=== PATIENT | female | born 1965 | race Caucasian/White ===

== ENCOUNTER → 2017-05-14 15:50 | Outpatient (CLI) | payer OTHER, SELFPAY ==
--- NOTE | 2017-05-14 15:55 | HPBI_ITS ---
MAMMOGRAPHY - BILATERAL SCREENING REASON FOR EXAM: Female, 52 years old. Routine annual screening examination. PERTINENT HISTORY: Non-contributory. TECHNIQUE: Digital bilateral breast francine (3D mammographic acquisition) in the CC and MLO projections. 2-D mediolateral oblique (MLO) and craniocaudad (CC) views of both breasts were obtained. CAD: Full Field Digital Mammography with Computer Added Detection was performed. COMPARISON: Comparison is made with prior examination dated April 04, 2016 and March 26, 2015. FINDINGS: Breast Composition: There are scattered areas of fibroglandular density. There are no dominant masses or suspicious calcifications. Stable benign-appearing bilateral axillary lymph nodes. Stable appearance of the small nodular density in the upper outer aspect of the left breast most likely representing intramammary lymph node. No other significant abnormalities are identified. There has been no significant change since the prior study. HPBI/SCREENING MAMM (CAD), BILAT IMPRESSION: Stable bilateral screening mammogram. Yearly follow-up mammogram recommended. (A) ASSESSMENT CATEGORY: BIRADS Category 2: Benign. A letter regarding these results will be sent to the patient by the facility within 30 days. Approximately 10% of breast cancers are not detected by mammography. A normal mammogram should not delay biopsy of a clinically suspicious abnormality. [id number] Electronically Signed: Librado Flanagan MD at 10:59 EST Tel [phone], Service support ,
== END ==
PROVIDERS: Family Provider Family Medicine Geriatric Medicine; PCP Family Medicine Geriatric Medicine; Visit Provider Family Medicine Geriatric Medicine
DX: Z12.31 Encounter for screening mammogram for malignant neoplasm of breast (principal)
CPT/HCPCS: 77063; 77067

== ENCOUNTER → 2018-04-09 11:58 | Outpatient (CLI) | payer OTHER, SELFPAY ==
[2018-04-09 12:47] LABS: Absolute Lymphocyte Count 1.29 X10^3/ul (0.83-4.51); Absolute Neutrophil Count 5.7 X10^3/uL (2.0-7.7); Basophil# 0.02 X10^3/uL; Basophil% 0.3 % (0-1); Eosinophils% 1.3 % (0-5); Hematocrit 41.4 % (37-47); Hemoglobin 12.9 g/dl (12.0-15.0); Lymphocyte # 1.29 X10^3/ul (4.0); Lymphocyte % 17.2 % (19-41); Mean Corp Hgb Conc 31.2 g/gl (32-36); Mean Corpuscular Hgb 27.3 pg (27.0-32.0); Mean Corpuscular Volume 87.5 fL (81-99); Mean Platelet Vol. 9.6 fl (6.2-12.0); Monocyte# 0.41 X10^3/uL; Monocyte% 5.5 % (0-10); Neutrophil # 5.69 X10^3/uL (2.7-7.7); Neutrophil % 75.6 % (47-70); Platelet Count 285 K/mm3 (150-450); RBC Distribution Width CV 14.7 % (11.6-14.6); RBC Distribution Width SD 47.1 fl (35.1-43.9); Red Blood Count 4.73 M/mm3 (4.2-5.4); White Blood Count 7.5 K/mm3 (4.4-11.0)
[2018-04-09 12:49] LABS: POSITIVE COUNT NO; POSITIVE DIFFERENTIAL NO; POSITIVE MORPHOLOGY NO
[2018-04-09 13:00] LABS: Vitamin D,25 Hydroxy 41.3 ng/mL (29.95-100.01)
[2018-04-09 13:05] LABS: ALB/GLOB Ratio 0.9 RATIO (0.9-2.4); AST(SGOT) 18 U/L (15-37); Alanine Aminotransfer ALT/SGPT 22 U/L (13-56); Albumin, Serum 3.6 g/dL (3.2-5.0); Alkaline Phosphatase 83 U/L (45-117); Anion Gap 13 (5-15); BUN 13 mg/dL (7-18); BUN/Creat Ratio 23.4 RATIO (10-20); Calcium,Total 8.9 mg/dL (8.5-10.1); Chloride 107 mmol/L (98-107); Creatinine, Serum 0.56 mg/dL (0.55-1.02); EST Glomerular Filtration Rate 122 mL/min (>60); Est Glom Filt Rate - Afr Amer 148 mL/min (>60); Glucose 103 mg/dL (74-106); Potassium 3.7 mmol/L (3.5-5.1); Protein, Total 7.6 g/dL (6.4-8.2); Sodium Level 141 mmol/L (136-145); Thyroid Stim Hormone (TSH) 0.82 uIU/mL (0.358-3.74)
== END ==
PROVIDERS: Family Provider Family Medicine Geriatric Medicine; PCP Family Medicine Geriatric Medicine; Visit Provider Family Medicine Geriatric Medicine
DX: I10 Essential (primary) hypertension (principal); E55.9 Vitamin D deficiency, unspecified
CPT/HCPCS: 36415; 80053; 82306; 84443; 85025

== ENCOUNTER → 2018-06-01 16:19 | Outpatient (CLI) | payer OTHER, SELFPAY ==
--- NOTE | 2018-06-01 16:23 | BI_ITS ---
MAMMOGRAPHY - BILATERAL SCREENING REASON FOR EXAM: Female, 53 years old. Routine annual screening examination. PERTINENT HISTORY: Non-contributory. TECHNIQUE: Digital bilateral breast francine (3D mammographic acquisition) in the CC and MLO projections. 2-D mediolateral oblique (MLO) and craniocaudad (CC) views of both breasts were obtained. CAD: Full Field Digital Mammography with Computer Added Detection was performed. COMPARISON: Comparison is made with prior study dated May 14, 2017 and April 04, 2016. FINDINGS: Breast Composition: The breasts are heterogeneously dense, which may obscure small masses. There are no dominant masses or suspicious calcifications. Stable small nodular densities measuring up to 5 mm in the upper outer quadrant of the left breast. Correlation with ultrasound is recommended. Stable benign-appearing bilateral axillary lymph nodes. No other significant abnormalities are identified. There has been no significant change since the prior study. BI/SCREENING MAMM (CAD), BILAT IMPRESSION: Stable bilateral screening mammogram. Targeted ultrasound of the upper lateral aspect of the left breast is recommended for further evaluation. ASSESSMENT CATEGORY: BIRADS Category 0: Incomplete. Need additional imaging evaluation. A letter regarding these results will be sent to the patient by the facility within 30 days. Approximately 10% of breast cancers are not detected by mammography. A normal mammogram should not delay biopsy of a clinically suspicious abnormality. [id number] Electronically Signed: Librado Flanagan, at 9:04 EST , Service support ,
== END ==
PROVIDERS: Family Provider Family Medicine Geriatric Medicine; PCP Family Medicine Geriatric Medicine; Referring Provider Family Medicine Geriatric Medicine; Visit Provider Family Medicine Geriatric Medicine
DX: Z12.31 Encounter for screening mammogram for malignant neoplasm of breast (principal)
CPT/HCPCS: 77063; 77067

== ENCOUNTER → 2018-06-08 15:28 | Outpatient (CLI) | payer OTHER, SELFPAY ==
--- NOTE | 2018-06-08 15:29 | US_ITS ---
STUDY: ULTRASOUND BREAST - LEFT REASON FOR EXAM: Female, 53 years old. Abnormal screening mammogram. TECHNIQUE: Axial and longitudinal images of the LEFT breast were performed with a high resolution ultrasound transducer. COMPARISON: Comparison is made with prior mammogram dated June 01, 2018. FINDINGS: LEFT Breast: A cluster of small cysts measuring up to 3 mm x 4 mm x 2 mm is seen at the 2:00 position of the breast at 6 cm from the nipple. Mild degree of dilated subareolar ducts. US/Breast Limited Unilateral IMPRESSION: Cluster of small cysts in the upper outer quadrant of the left breast as described as well as mildly dilated subareolar ducts. ASSESSMENT CATEGORY: BIRADS Category 2: Benign. A letter regarding these results will be sent to the patient by the facility within 30 days. Electronically Signed: Librado Flanagan, at 8:59 EST , Service support ,
== END ==
PROVIDERS: Family Provider Family Medicine Geriatric Medicine; PCP Family Medicine Geriatric Medicine; Referring Provider Family Medicine Geriatric Medicine; Visit Provider Family Medicine Geriatric Medicine
DX: R92.8 Other abnormal and inconclusive findings on diagnostic imaging of breast (principal)
CPT/HCPCS: 76642

== ENCOUNTER → 2019-04-11 11:46 | Outpatient (CLI) | payer OTHER, SELFPAY ==
[2019-02-23 07:06] VITALS: BMI 41.7
[2019-04-11 12:43] LABS: Absolute Lymphocyte Count 1.47 X10^3/uL (0.83-4.51); Absolute Neutrophil Count 5.2 X10^3/uL (2.0-7.7); Basophil# 0.03 X10^3/uL; Basophil% 0.4 % (0-1); Eosinophil# 0.13 X10^3/uL; Eosinophils% 1.8 % (0-5); Hematocrit 42.8 % (37-47); Hemoglobin 13.7 g/dL (12.0-15.0); Lymphocyte # 1.47 X10^3/ul (4.0); Lymphocyte % 20.3 % (19-41); Mean Corpuscular Volume 87.5 fL (81-99); Mean Platelet Vol. 10.2 fl (6.2-12.0); Monocyte# 0.43 X10^3/uL; Monocyte% 5.9 % (0-10); NRBC Flagged by Analyzer 0 % (0-5); Neutrophil # 5.16 X10^3/uL (2.7-7.7); Neutrophil % 71.2 % (47-70); Platelet Count 297 K/mm3 (150-450); RBC Distribution Width CV 13.8 % (11.6-14.6); RBC Distribution Width SD 44.6 fl (35.1-43.9); Red Blood Count 4.89 M/mm3 (4.2-5.4); White Blood Count 7.3 K/mm3 (4.4-11.0)
[2019-04-11 13:06] LABS: Vitamin D,25 Hydroxy 38.1 ng/mL (29.95-100.01)
[2019-04-11 13:12] LABS: ALB/GLOB Ratio 0.9 RATIO (0.9-2.4); AST(SGOT) 27 U/L (15-37); Alanine Aminotransfer ALT/SGPT 39 U/L (13-56); Albumin, Serum 3.8 g/dL (3.2-5.0); Alkaline Phosphatase 92 U/L (45-117); Anion Gap 9 (5-15); BUN 10 mg/dL (7-18); BUN/Creat Ratio 10.9 RATIO (10-20); Calcium,Total 9.5 mg/dL (8.5-10.1); Chloride 107 mmol/L (98-107); Creatinine, Serum 0.92 mg/dL (0.55-1.02); EST Glomerular Filtration Rate 69 mL/min (>60); Est Glom Filt Rate - Afr Amer 83 mL/min (>60); Globulin 4.3 g/dL (2.2-4.2); Glucose 135 mg/dL (74-106); Potassium 3.6 mmol/L (3.5-5.1); Protein, Total 8.1 g/dL (6.4-8.2); Sodium Level 138 mmol/L (136-145); Thyroid Stim Hormone (TSH) 1.61 uIU/mL (0.358-3.74)
== END ==
PROVIDERS: Family Provider Family Medicine Geriatric Medicine; PCP Family Medicine Geriatric Medicine; Visit Provider Family Medicine Geriatric Medicine
DX: I10 Essential (primary) hypertension (principal); E55.9 Vitamin D deficiency, unspecified
CPT/HCPCS: 36415; 80053; 82306; 84443; 85025

== ENCOUNTER → 2019-06-07 15:41 | Outpatient (CLI) | payer OTHER, SELFPAY ==
[2019-02-23 07:06] VITALS: BMI 41.7
--- NOTE | 2019-06-07 15:44 | BI_ITS ---
MAMMOGRAPHY - BILATERAL SCREENING REASON FOR EXAM: Female, 54 years old. Routine annual screening examination. PERTINENT HISTORY: Non-contributory. TECHNIQUE: Digital bilateral breast anais (3D mammographic acquisition) in the CC and MLO projections. 2-D mediolateral oblique (MLO) and craniocaudad (CC) views of both breasts were obtained. CAD: Full Field Digital Mammography with Computer Added Detection was performed. COMPARISON: Comparison is made with prior study dated June 01, 2018 and May 14, 2007. FINDINGS: Breast Composition: The breasts are heterogeneously dense, which may obscure small masses. There are no dominant masses or suspicious calcifications. Stable subcentimeter nodular densities in the upper outer quadrant of the left breast. Prior sonogram demonstrated these to be small cysts. Stable benign-appearing bilateral axillary lymph nodes. No other significant abnormalities are identified. There has been no significant change since the prior study. BI/SCREEN MAMM (CAD) W/ANAIS BILAT IMPRESSION: Stable bilateral screening mammogram. Yearly follow-up mammogram recommended. (A) ASSESSMENT CATEGORY: BIRADS Category 2: Benign. A letter regarding these results will be sent to the patient by the facility within 30 days. Approximately 10% of breast cancers are not detected by mammography. A normal mammogram should not delay biopsy of a clinically suspicious abnormality. [id number] Electronically Signed: Librado Flanagan, at 8:23 EST , Service support ,
== END ==
PROVIDERS: Family Provider Family Medicine Geriatric Medicine; PCP Family Medicine Geriatric Medicine; Referring Provider Family Medicine Geriatric Medicine; Visit Provider Family Medicine Geriatric Medicine
DX: Z12.31 Encounter for screening mammogram for malignant neoplasm of breast (principal)
CPT/HCPCS: 77063; 77067

== ENCOUNTER → 2019-09-08 07:23 | Outpatient (CLI) | payer OTHER, SELFPAY ==
[2019-02-23 07:06] VITALS: BMI 41.7
[2019-09-08 08:11] LABS: Hemoglobin 12.5 g/dL (12.0-15.0); Mean Corp Hgb Conc 30.5 g/dL (32-36); Mean Corpuscular Hgb 28.3 pg (27.0-32.0); Mean Corpuscular Volume 92.8 fL (81-99); Mean Platelet Vol. 9.9 fl (6.2-12.0); Platelet Count 302 K/mm3 (150-450); RBC Distribution Width CV 14.5 % (11.6-14.6); RBC Distribution Width SD 49.2 fl (35.1-43.9); Red Blood Count 4.42 M/mm3 (4.2-5.4); White Blood Count 7.1 K/mm3 (4.4-11.0)
[2019-09-08 08:27] LABS: Hemoglobin A1c 6.2 % (3.8-5.6)
[2019-09-08 08:29] LABS: ALB/GLOB Ratio 0.8 RATIO (0.9-2.4); AST(SGOT) 16 U/L (15-37); Alanine Aminotransfer ALT/SGPT 22 U/L (13-56); Albumin, Serum 3.4 g/dL (3.2-5.0); Alkaline Phosphatase 106 U/L (45-117); Anion Gap 9 (5-15); BUN 14 mg/dL (7-18); BUN/Creat Ratio 23.3 RATIO (10-20); Calcium,Total 9.3 mg/dL (8.5-10.1); Chloride 108 mmol/L (98-107); Cholesterol 161 mg/dL (200); EST Glomerular Filtration Rate 111 mL/min (>60); Est Glom Filt Rate - Afr Amer 135 mL/min (>60); Globulin 4.2 g/dL (2.2-4.2); Glucose 120 mg/dL (74-106); Potassium 3.3 mmol/L (3.5-5.1); Protein, Total 7.6 g/dL (6.4-8.2); Sodium Level 142 mmol/L (136-145)
== END ==
PROVIDERS: PCP Family Medicine Geriatric Medicine; Referring Provider Nurse Practitioner Acute Care; Visit Provider Nurse Practitioner Acute Care
DX: G47.33 Obstructive sleep apnea (adult) (pediatric) (principal)
CPT/HCPCS: 36415; 80053; 82465; 83036; 85027

== ENCOUNTER → 2019-09-09 20:10 | Outpatient (CLI) | payer OTHER, SELFPAY ==
[2019-02-23 07:06] VITALS: BMI 41.7
== END ==
PROVIDERS: PCP Family Medicine Geriatric Medicine; Referring Provider Nurse Practitioner Acute Care; Visit Provider Nurse Practitioner Acute Care
DX: G47.33 Obstructive sleep apnea (adult) (pediatric) (principal)
CPT/HCPCS: 95811

== ENCOUNTER → 2019-09-27 14:00 | Outpatient (CLI) | payer OTHER, SELFPAY ==
[2019-09-14 15:53] VITALS: BMI 41.7
== END ==
PROVIDERS: PCP Internal Medicine; Referring Provider Nurse Practitioner Acute Care; Visit Provider Nurse Practitioner Acute Care
DX: Z46.89 Encounter for fitting and adjustment of other specified devices (principal)

== ENCOUNTER → 2019-09-29 11:57 | Outpatient (CLI) | payer OTHER, SELFPAY ==
[2019-09-14 15:53] VITALS: BMI 41.7
== END ==
PROVIDERS: PCP Internal Medicine; Visit Provider Nurse Practitioner Acute Care
DX: Z46.89 Encounter for fitting and adjustment of other specified devices (principal)

== ENCOUNTER → 2020-02-08 15:29 | Outpatient (CLI) | payer OTHER, SELFPAY ==
[2019-12-27 05:34] VITALS: BMI 42.0
[2020-02-08 17:17] LABS: Anion Gap 7 (5-15); BUN 9 mg/dL (7-18); BUN/Creat Ratio 12.1 RATIO (10-20); Calcium,Total 9.3 mg/dL (8.5-10.1); Chloride 106 mmol/L (98-107); Creatinine, Serum 0.74 mg/dL (0.55-1.02); EST Glomerular Filtration Rate 87 mL/min (>60); Est Glom Filt Rate - Afr Amer 105 mL/min (>60); Glucose 94 mg/dL (74-106); Potassium 3.4 mmol/L (3.5-5.1); Sodium Level 138 mmol/L (136-145)
[2020-02-08 17:23] LABS: Hemoglobin A1c 6.2 % (3.8-5.6)
== END ==
PROVIDERS: PCP Internal Medicine; Referring Provider Internal Medicine; Visit Provider Internal Medicine
DX: R73.03 Prediabetes (principal)
CPT/HCPCS: 36415; 80048; 83036

== ENCOUNTER → 2020-05-16 15:57 | Outpatient (CLI) | payer OTHER, SELFPAY ==
[2020-05-16 15:14] VITALS: BMI 41.8
[2020-05-16 17:49] LABS: Anion Gap 8 (5-15); BUN 12 mg/dL (7-18); BUN/Creat Ratio 17.6 RATIO (10-20); Calcium,Total 9.2 mg/dL (8.5-10.1); Chloride 103 mmol/L (98-107); Creatinine, Serum 0.68 mg/dL (0.55-1.02); EST Glomerular Filtration Rate 96 mL/min (>60); Est Glom Filt Rate - Afr Amer 116 mL/min (>60); Glucose 112 mg/dL (74-106); Potassium 3.4 mmol/L (3.5-5.1); Sodium Level 137 mmol/L (136-145)
[2020-05-16 18:13] LABS: Vitamin B12 > 2000 pg/mL (211-911)
== END ==
PROVIDERS: PCP Internal Medicine; Referring Provider Internal Medicine; Visit Provider Internal Medicine
DX: E53.8 Deficiency of other specified B group vitamins (principal); I10 Essential (primary) hypertension
CPT/HCPCS: 36415; 80048; 82607

== ENCOUNTER → 2020-06-12 15:55 | Outpatient (CLI) | payer OTHER, SELFPAY ==
[2020-05-16 15:14] VITALS: BMI 41.8
--- NOTE | 2020-06-12 15:57 | BI_ITS ---
MAMMOGRAPHY - BILATERAL SCREENING REASON FOR EXAM: Female, 55 years old. Routine annual screening examination. PERTINENT HISTORY: Non-contributory. History of left breast cysts. TECHNIQUE: Digital bilateral breast anais (3D mammographic acquisition) in the CC and MLO projections. 2-D mediolateral oblique (MLO) and craniocaudad (CC) views of both breasts were obtained. CAD: Full Field Digital Mammography with Computer Added Detection was performed. COMPARISON: Comparison is made with prior study dated 06/07/2019 and 03/01/2019. FINDINGS: Breast Composition: The breasts are heterogeneously dense, which may obscure small masses. Stable subcentimeters nodular densities seen in the upper-outer quadrant of the left breast. Prior ultrasound demonstrated them to be small cysts. Stable benign-appearing bilateral axillary lymph. No other significant abnormalities are identified. There has been no significant change since the prior study. BI/SCRN MAMM (CAD)W/ANAIS BILAT IMPRESSION: Stable bilateral screening mammogram. Yearly follow-up mammogram recommended. (A) ASSESSMENT CATEGORY: BIRADS Category 2: Benign. A letter regarding these results will be sent to the patient by the facility within 30 days. Approximately 10% of breast cancers are not detected by mammography. A normal mammogram should not delay biopsy of a clinically suspicious abnormality. [id number] Electronically Signed: Librado Flanagan MD at 10:56 EDT , Service support ,
== END ==
PROVIDERS: PCP Internal Medicine; Referring Provider Internal Medicine; Visit Provider Internal Medicine
DX: Z12.31 Encounter for screening mammogram for malignant neoplasm of breast (principal)
CPT/HCPCS: 77063; 77067

== ENCOUNTER → 2020-09-14 15:09 | Outpatient (CLI) | payer OTHER, SELFPAY ==
[2020-09-12 15:43] VITALS: BMI 41.8
[2020-09-14 16:38] LABS: Absolute Lymphocyte Count 1.82 X10^3/uL (0.83-4.51); Absolute Neutrophil Count 5.6 X10^3/uL (2.0-7.7); Basophil# 0.03 X10^3/uL; Basophil% 0.4 % (0-1); Eosinophil# 0.21 X10^3/uL; Eosinophils% 2.6 % (0-5); Hemoglobin 11.8 g/dL (12.0-15.0); Lymphocyte # 1.82 X10^3/ul (0.83-4.51); Lymphocyte % 22.3 % (19-41); Mean Corp Hgb Conc 31.1 g/dL (32-36); Mean Corpuscular Hgb 27.8 pg (27.0-32.0); Mean Corpuscular Volume 89.6 fL (81-99); Mean Platelet Vol. 10.2 fl (6.2-12.0); Monocyte# 0.46 X10^3/uL; Monocyte% 5.6 % (0-10); NRBC Flagged by Analyzer 0 % (0-5); Neutrophil # 5.58 X10^3/uL (2.7-7.7); Neutrophil % 68.5 % (47-70); Platelet Count 302 K/mm3 (150-450); RBC Distribution Width CV 14.3 % (11.6-14.6); RBC Distribution Width SD 46.2 fl (35.1-43.9); Red Blood Count 4.24 M/mm3 (4.2-5.4); White Blood Count 8.2 K/mm3 (4.4-11.0)
[2020-09-14 16:47] LABS: ALB/GLOB Ratio 1.1 RATIO (0.9-2.4); AST(SGOT) 23 U/L (15-37); Alanine Aminotransfer ALT/SGPT 34 U/L (13-56); Albumin, Serum 3.7 g/dL (3.2-5.0); Alkaline Phosphatase 91 U/L (45-117); Anion Gap 9 (5-15); BUN 15 mg/dL (7-18); BUN/Creat Ratio 21.4 RATIO (10-20); Chloride 108 mmol/L (98-107); Cholesterol 177 mg/dL (200); EST Glomerular Filtration Rate 93 mL/min (>60); Est Glom Filt Rate - Afr Amer 112 mL/min (>60); Globulin 3.5 g/dL (2.2-4.2); Glucose 111 mg/dL (74-106); High Density Lipoprotein 44 mg/dL; Potassium 3.3 mmol/L (3.5-5.1); Protein, Total 7.2 g/dL (6.4-8.2); Sodium Level 142 mmol/L (136-145); Triglycerides 292 mg/dL; Very Low Density Lipoprotein 58 mg/dL (5-40)
== END ==
PROVIDERS: PCP Internal Medicine; Referring Provider Internal Medicine; Visit Provider Internal Medicine
DX: I10 Essential (primary) hypertension (principal); R73.03 Prediabetes
CPT/HCPCS: 36415; 80053; 80061; 85025

== ENCOUNTER → 2020-12-21 14:28 | Outpatient (CLI) | payer OTHER, SELFPAY ==
[2020-12-21 15:33] LABS: Anion Gap 6 (5-15); BUN 10 mg/dL (7-18); BUN/Creat Ratio 13.5 RATIO (10-20); Chloride 108 mmol/L (98-107); Creatinine, Serum 0.74 mg/dL (0.55-1.02); EST Glomerular Filtration Rate 87 mL/min (>60); Est Glom Filt Rate - Afr Amer 105 mL/min (>60); Glucose 116 mg/dL (74-106); Potassium 3.7 mmol/L (3.5-5.1); Sodium Level 140 mmol/L (136-145)
== END ==
PROVIDERS: PCP Internal Medicine; Referring Provider Internal Medicine; Visit Provider Internal Medicine
DX: I10 Essential (primary) hypertension (principal)
CPT/HCPCS: 36415; 80048

== ENCOUNTER 2021-05-15 14:47 | Outpatient (CLI) | payer OTHER, SELFPAY ==
[2021-05-15 17:06] LABS: Anion Gap 7 (5-15); BUN 12 mg/dL (7-18); BUN/Creat Ratio 18.6 RATIO (10-20); Calcium,Total 9.5 mg/dL (8.5-10.1); Chloride 105 mmol/L (98-107); Creatinine, Serum 0.64 mg/dL (0.55-1.02); EST Glomerular Filtration Rate 102 mL/min (>60); Est Glom Filt Rate - Afr Amer 123 mL/min (>60); Glucose 90 mg/dL (74-106); Potassium 3.4 mmol/L (3.5-5.1); Sodium Level 138 mmol/L (136-145)
== END 2021-05-15 23:59 | disposition home or self-care (01) ==
LOC: BIMLAB 14:48
PROVIDERS: PCP Internal Medicine; Referring Provider Internal Medicine; Visit Provider Internal Medicine
DX: I10 Essential (primary) hypertension (principal)
CPT/HCPCS: 36415; 80048

== ENCOUNTER → 2021-08-23 | Outpatient (CLI) | payer OTHER, SELFPAY ==
[2021-08-23 16:36] LABS: Absolute Lymphocyte Count 2.12 X10^3/uL (0.83-4.51); Basophil# 0.03 X10^3/uL; Basophil% 0.3 % (0-1); Eosinophil# 0.49 X10^3/uL; Eosinophils% 5.4 % (0-5); Hemoglobin 12.4 g/dL (12.0-15.0); Lymphocyte # 2.12 X10^3/ul (0.83-4.51); Lymphocyte % 23.5 % (19-41); Mean Corp Hgb Conc 31.8 g/dL (32-36); Mean Platelet Vol. 9.9 fl (6.2-12.0); Monocyte# 0.39 X10^3/uL; Monocyte% 4.3 % (0-10); NRBC Flagged by Analyzer 0 % (0-5); Neutrophil # 5.96 X10^3/uL (2.7-7.7); Neutrophil % 66.2 % (47-70); Platelet Count 327 K/mm3 (150-450); RBC Distribution Width CV 14.3 % (11.6-14.6); Red Blood Count 4.43 M/mm3 (4.2-5.4)
[2021-08-23 16:45] LABS: Cholesterol 192 mg/dL (200); High Density Lipoprotein 44 mg/dL; Triglycerides 180 mg/dL; Very Low Density Lipoprotein 36 mg/dL (5-40)
== END | disposition home or self-care (01) ==
LOC: BIMLAB 15:02
PROVIDERS: PCP Internal Medicine; Referring Provider Internal Medicine; Visit Provider Internal Medicine
DX: E11.69 Type 2 diabetes mellitus with other specified complication (principal)
CPT/HCPCS: 36415; 80061; 85025

== ENCOUNTER → 2021-09-03 | Outpatient (CLI) | payer OTHER, SELFPAY ==
--- NOTE | 2021-09-03 14:41 | BI_ITS ---
MAMMOGRAPHY - BILATERAL SCREENING REASON FOR EXAM: Female, 56 years old. Routine annual screening examination. PERTINENT HISTORY: Non-contributory. TECHNIQUE: Digital bilateral breast anais (3D mammographic acquisition) in the CC and MLO projections. 2-D mediolateral oblique (MLO) and craniocaudad (CC) views of both breasts were obtained. CAD: Full Field Digital Mammography with Computer Added Detection was performed. COMPARISON: Comparison is made with prior study of 06/12/2020 and 06/07/2019 FINDINGS: Breast Composition: The breasts are heterogeneously dense, which may obscure small masses. There are no dominant masses or suspicious calcifications. Stable subcentimeter nodular densities once again seen in the upper-outer quadrant of the left breast. Prior ultrasound demonstrated to be small cysts. Stable benign-appearing bilateral axillary lymph nodes. No other significant abnormalities are identified. There has been no significant change since the prior study. BI/SCRN MAMM (CAD)W/AANIS BILAT IMPRESSION: Stable bilateral screening mammogram. Yearly follow-up mammogram recommended. (A) ASSESSMENT CATEGORY: BIRADS Category 2: Benign. A letter regarding these results will be sent to the patient by the facility within 30 days. Approximately 10% of breast cancers are not detected by mammography. A normal mammogram should not delay biopsy of a clinically suspicious abnormality. [id number] Electronically Signed: Librado Flanagan MD at 8:39 EDT ,
== END | disposition home or self-care (01) ==
LOC: OPBI 14:41
PROVIDERS: PCP Internal Medicine; Visit Provider Internal Medicine
DX: Z12.31 Encounter for screening mammogram for malignant neoplasm of breast (principal)
CPT/HCPCS: 77063; 77067

== ENCOUNTER → 2021-11-29 | Outpatient (CLI) | payer OTHER, SELFPAY ==
[2021-11-29 16:55] LABS: AST(SGOT) 32 U/L (15-37); Alanine Aminotransfer ALT/SGPT 49 U/L (13-56); Albumin, Serum 3.7 g/dL (3.2-5.0); Alkaline Phosphatase 90 U/L (45-117); Anion Gap 9 (5-15); BUN 12 mg/dL (7-18); BUN/Creat Ratio 15.6 RATIO (10-20); Calcium,Total 8.7 mg/dL (8.5-10.1); Chloride 108 mmol/L (98-107); Creatinine, Serum 0.77 mg/dL (0.55-1.02); EST Glomerular Filtration Rate 83 mL/min (>60); Est Glom Filt Rate - Afr Amer 101 mL/min (>60); Globulin 3.8 g/dL (2.2-4.2); Glucose 117 mg/dL (74-106); Potassium 3.5 mmol/L (3.5-5.1); Protein, Total 7.5 g/dL (6.4-8.2); Sodium Level 141 mmol/L (136-145); T4 Free Direct 0.85 ng/dL (0.76-1.46); Thyroid Stim Hormone (TSH) 1.09 uIU/mL (0.358-3.74)
[2021-12-02 09:40] LABS: Vitamin B12 552 pg/mL (211-911); Vitamin D,25 Hydroxy 52.9 ng/mL
== END | disposition home or self-care (01) ==
LOC: BIMLAB 15:29
PROVIDERS: PCP Internal Medicine; Referring Provider Internal Medicine; Visit Provider Internal Medicine
DX: E55.9 Vitamin D deficiency, unspecified (principal); E11.69 Type 2 diabetes mellitus with other specified complication; Z13.29 Encounter for screening for other suspected endocrine disorder
CPT/HCPCS: 36415; 80053; 82306; 82607; 84439; 84443

== ENCOUNTER 2022-04-10 14:05 | Outpatient (CLI) | payer OTHER, SELFPAY | END 2022-04-10 23:59 | disposition home or self-care (01) | LOC: LABSPEC 14:08 | PROVIDERS: PCP Internal Medicine; Referring Provider Physician Assistant; Visit Provider Physician Assistant | DX: Z20.822 Contact with and (suspected) exposure to COVID-19 (principal) | CPT/HCPCS: 87635; U0003; U0005 ==

== ENCOUNTER → 2022-07-23 | Outpatient (CLI) | payer OTHER, SELFPAY ==
[2022-07-23 16:41] LABS: Absolute Lymphocyte Count 2.28 X10^3/uL (0.83-4.51); Absolute Neutrophil Count 6.2 X10^3/uL (2.0-7.7); Basophil# 0.04 X10^3/uL; Basophil% 0.4 % (0-1); Eosinophil# 0.09 X10^3/uL; Hematocrit 39.6 % (37-47); Hemoglobin 12.2 g/dL (12.0-15.0); Lymphocyte # 2.28 X10^3/ul (0.83-4.51); Lymphocyte % 24.9 % (19-41); Mean Corp Hgb Conc 30.8 g/dL (32-36); Mean Corpuscular Hgb 27.9 pg (27.0-32.0); Mean Corpuscular Volume 90.6 fL (81-99); Mean Platelet Vol. 10.1 fl (6.2-12.0); Monocyte# 0.47 X10^3/uL; Monocyte% 5.1 % (0-10); NRBC Flagged by Analyzer 0 % (0-5); Neutrophil # 6.24 X10^3/uL (2.7-7.7); Neutrophil % 68.2 % (47-70); Platelet Count 340 K/mm3 (150-450); RBC Distribution Width CV 14.6 % (11.6-14.6); RBC Distribution Width SD 48.6 fl (35.1-43.9); Red Blood Count 4.37 M/mm3 (4.2-5.4); White Blood Count 9.2 K/mm3 (4.4-11.0)
[2022-07-23 17:10] LABS: Microalbumin,Random Urine < 5.0 mg/L (NO RANGE EST.)
[2022-07-23 18:04] LABS: AST(SGOT) 31 U/L (15-37); Alanine Aminotransfer ALT/SGPT 37 U/L (13-56); Albumin, Serum 3.8 g/dL (3.2-5.0); Alkaline Phosphatase 89 U/L (45-117); Anion Gap 4 (5-15); BUN 9 mg/dL (7-18); BUN/Creat Ratio 14.6 RATIO (10-20); Calcium,Total 9.3 mg/dL (8.5-10.1); Chloride 106 mmol/L (98-107); Cholesterol 178 mg/dL (200); Creatinine, Serum 0.62 mg/dL (0.55-1.02); EST Glomerular Filtration Rate 107 mL/min (>60); Est Glom Filt Rate - Afr Amer 130 mL/min (>60); Globulin 3.9 g/dL (2.2-4.2); Glucose 103 mg/dL (74-106); High Density Lipoprotein 47 mg/dL; Potassium 3.3 mmol/L (3.5-5.1); Protein, Total 7.7 g/dL (6.4-8.2); Sodium Level 136 mmol/L (136-145); Triglycerides 168 mg/dL; Very Low Density Lipoprotein 34 mg/dL (5-40)
== END | disposition home or self-care (01) ==
LOC: BIMLAB 15:54
PROVIDERS: PCP Internal Medicine; Referring Provider Internal Medicine; Visit Provider Internal Medicine
DX: E11.69 Type 2 diabetes mellitus with other specified complication (principal)
CPT/HCPCS: 36415; 80053; 80061; 82043; 82570; 85025

== ENCOUNTER → 2022-09-09 | Outpatient (CLI) | payer OTHER, SELFPAY ==
--- NOTE | 2022-09-09 15:45 | BI_ITS ---
MAMMOGRAPHY - BILATERAL SCREENING REASON FOR EXAM: Female, 57 years old. Routine annual screening examination. PERTINENT HISTORY: Non-contributory. TECHNIQUE: Digital bilateral breast anais (3D mammographic acquisition) in the CC and MLO projections. 2-D mediolateral oblique (MLO) and craniocaudad (CC) views of both breasts were obtained. CAD: Full Field Digital Mammography with Computer Added Detection was performed. COMPARISON: Comparison is made with prior study dated September 03, 2021 and June 12, 2020. FINDINGS: Breast Composition: The breasts are heterogeneously dense, which may obscure small masses. There are no dominant masses or suspicious calcifications. Stable small subcentimeter nodular densities seen in the upper outer quadrant of the left breast. Stable fat-containing bilateral axillary lymph nodes. No other significant abnormalities are identified. There has been no significant change since the prior study. BI/SCRN MAMM (CAD)W/ANAIS BILAT IMPRESSION: Stable bilateral screening mammogram. Yearly follow-up mammogram recommended. (A) ASSESSMENT CATEGORY: BIRADS Category 2: Benign. A letter regarding these results will be sent to the patient by the facility within 30 days. Approximately 10% of breast cancers are not detected by mammography. A normal mammogram should not delay biopsy of a clinically suspicious abnormality. [id number] Electronically Signed: Librado Flanagan MD at 9:10 EDT ,
== END | disposition home or self-care (01) ==
LOC: OPBI 15:43
PROVIDERS: PCP Internal Medicine; Referring Provider Internal Medicine; Visit Provider Internal Medicine
DX: Z12.31 Encounter for screening mammogram for malignant neoplasm of breast (principal)
CPT/HCPCS: 77063; 77067

== ENCOUNTER → 2022-11-14 | Outpatient (CLI) | payer OTHER, SELFPAY ==
[2022-11-14 16:33] LABS: Anion Gap 7 (5-15); BUN 12 mg/dL (7-18); BUN/Creat Ratio 17.1 RATIO (10-20); Calcium,Total 9.1 mg/dL (8.5-10.1); Chloride 107 mmol/L (98-107); EST Glomerular Filtration Rate 92 mL/min (>60); Est Glom Filt Rate - Afr Amer 111 mL/min (>60); Glucose 111 mg/dL (74-106); Potassium 3.6 mmol/L (3.5-5.1); Sodium Level 140 mmol/L (136-145)
== END | disposition home or self-care (01) ==
LOC: BIMLAB 15:42
PROVIDERS: PCP Internal Medicine; Referring Provider Internal Medicine; Visit Provider Internal Medicine
DX: I10 Essential (primary) hypertension (principal)
CPT/HCPCS: 36415; 80048

== ENCOUNTER → 2023-06-10 | Outpatient (CLI) | payer OTHER, SELFPAY ==
[2023-06-10 15:41] LABS: Absolute Lymphocyte Count 2.39 X10^3/uL (0.83-4.51); Absolute Neutrophil Count 5.6 X10^3/uL (2.0-7.7); Basophil# 0.04 X10^3/uL; Basophil% 0.5 % (0-1); Eosinophil# 0.09 X10^3/uL; Eosinophils% 1.1 % (0-5); Hematocrit 39.1 % (37-47); Hemoglobin 12.4 g/dL (12.0-15.0); Lymphocyte # 2.39 X10^3/ul (0.83-4.51); Lymphocyte % 28.2 % (19-41); Mean Corp Hgb Conc 31.7 g/dL (32-36); Mean Corpuscular Hgb 27.2 pg (27.0-32.0); Mean Corpuscular Volume 85.7 fL (81-99); Mean Platelet Vol. 9.7 fl (6.2-12.0); Monocyte# 0.34 X10^3/uL; NRBC Flagged by Analyzer 0 % (0-5); Neutrophil # 5.61 X10^3/uL (2.7-7.7); Platelet Count 323 K/mm3 (150-450); RBC Distribution Width CV 14.2 % (11.6-14.6); RBC Distribution Width SD 44.2 fl (35.1-43.9); Red Blood Count 4.56 M/mm3 (4.2-5.4); White Blood Count 8.5 K/mm3 (4.4-11.0)
[2023-06-10 15:58] LABS: Hemoglobin A1c 5.8 % (3.8-5.6)
[2023-06-10 16:04] LABS: ALB/GLOB Ratio 0.9 RATIO (0.9-2.4); AST(SGOT) 20 U/L (15-37); Alanine Aminotransfer ALT/SGPT 34 U/L (13-56); Albumin, Serum 3.5 g/dL (3.2-5.0); Alkaline Phosphatase 87 U/L (45-117); Anion Gap 6 (5-15); BUN 11 mg/dL (7-18); BUN/Creat Ratio 15.3 RATIO (10-20); Calcium,Total 9.3 mg/dL (8.5-10.1); Chloride 108 mmol/L (98-107); Cholesterol 136 mg/dL (200); Creatinine, Serum 0.72 mg/dL (0.55-1.02); EST Glomerular Filtration Rate 89 mL/min (>60); Est Glom Filt Rate - Afr Amer 108 mL/min (>60); Glucose 115 mg/dL (74-106); High Density Lipoprotein 44 mg/dL; Protein, Total 7.5 g/dL (6.4-8.2); Sodium Level 140 mmol/L (136-145); Triglycerides 151 mg/dL; Very Low Density Lipoprotein 30 mg/dL (5-40)
== END | disposition home or self-care (01) ==
LOC: BIMLAB 14:22
PROVIDERS: PCP Internal Medicine; Visit Provider Internal Medicine
DX: E11.9 Type 2 diabetes mellitus without complications (principal); I10 Essential (primary) hypertension
CPT/HCPCS: 36415; 80053; 80061; 83036; 85025

== ENCOUNTER → 2023-06-24 | Outpatient (CLI) | payer OTHER, SELFPAY ==
[2023-06-24 16:39] LABS: Potassium 3.8 mmol/L (3.5-5.1)
== END | disposition home or self-care (01) ==
LOC: BIMLAB 14:39
PROVIDERS: PCP Internal Medicine; Visit Provider Internal Medicine
DX: E87.6 Hypokalemia (principal)
CPT/HCPCS: 36415; 84132

== ENCOUNTER → 2023-09-18 | Outpatient (CLI) | payer OTHER, SELFPAY ==
[2023-09-18 16:59] LABS: Anion Gap 8 (5-15); BUN 15 mg/dL (7-18); BUN/Creat Ratio 20.5 RATIO (10-20); Calcium,Total 9.5 mg/dL (8.5-10.1); Chloride 107 mmol/L (98-107); Creatinine, Serum 0.73 mg/dL (0.55-1.02); EST Glomerular Filtration Rate 87 mL/min (>60); Est Glom Filt Rate - Afr Amer 106 mL/min (>60); Glucose 105 mg/dL (74-106); Potassium 4.1 mmol/L (3.5-5.1); Sodium Level 142 mmol/L (136-145)
== END | disposition home or self-care (01) ==
LOC: BIMLAB 15:22
PROVIDERS: PCP Internal Medicine; Visit Provider Internal Medicine
DX: I10 Essential (primary) hypertension (principal)
CPT/HCPCS: 36415; 80048

== ENCOUNTER → 2023-10-09 | Outpatient (CLI) | payer OTHER, SELFPAY ==
--- NOTE | 2023-10-09 13:53 | BI_ITS ---
MAMMOGRAPHY - BILATERAL SCREENING 3-D TOMOSYNTHESIS REASON FOR EXAM: Female, 58 years old. Breast cancer screening PERTINENT HISTORY: No significant family history. TECHNIQUE: 2-D mammograms and 3-D Tomosynthesis of the breast (s) were performed. CAD was performed. COMPARISON: 09/09/2022 FINDINGS: The breast composition is composed of scattered fibroglandular density. Scattered benign calcifications are seen. No dense spiculated masses or suspicious microcalcifications are identified. No architectural distortion is identified. There is no skin thickening or retraction. There has been no significant change since the prior study. BI/SCRN MAMM (CAD)W/ANAIS BILAT IMPRESSION: No mammographic signs of malignancy. Routine yearly mammograms recommended. ASSESSMENT CATEGORY: BIRADS Category 1: Negative. A letter regarding these results will be sent to the patient by the facility within 30 days. FOLLOW UP RECOMMENDATION: Yearly follow up mammogram recommended. (A) Approximately 10% of breast cancers are not detected by mammography. A normal mammogram should not delay biopsy of a clinically suspicious abnormality. Electronically Signed: Diego Ann MD at 8:32 EDT ,
== END | disposition home or self-care (01) ==
LOC: OPBI 13:51
PROVIDERS: PCP Internal Medicine; Referring Provider Internal Medicine; Visit Provider Internal Medicine
DX: Z12.31 Encounter for screening mammogram for malignant neoplasm of breast (principal)
CPT/HCPCS: 77063; 77067

== ENCOUNTER → 2024-06-29 | Outpatient (CLI) | payer OTHER, SELFPAY ==
[2024-06-29 17:10] LABS: Absolute Lymphocyte Count 1.91 X10^3/uL (0.83-4.51); Absolute Neutrophil Count 4.6 X10^3/uL (2.0-7.7); Basophil# 0.02 X10^3/uL; Basophil% 0.3 % (0-1); Eosinophil# 0.35 X10^3/uL; Eosinophils% 4.8 % (0-5); Hematocrit 40.5 % (37-47); Lymphocyte # 1.91 X10^3/ul (0.83-4.51); Lymphocyte % 26.1 % (19-41); Mean Corp Hgb Conc 32.1 g/dL (32-36); Mean Corpuscular Volume 87.3 fL (81-99); Monocyte# 0.46 X10^3/uL; Monocyte% 6.3 % (0-10); NRBC Flagged by Analyzer 0 % (0-5); Neutrophil # 4.56 X10^3/uL (2.7-7.7); Neutrophil % 62.1 % (47-70); Platelet Count 321 K/mm3 (150-450); RBC Distribution Width CV 14.5 % (11.6-14.6); RBC Distribution Width SD 46.3 fl (35.1-43.9); Red Blood Count 4.64 M/mm3 (4.2-5.4); White Blood Count 7.3 K/mm3 (4.4-11.0)
[2024-06-29 20:02] LABS: ALB/GLOB Ratio 1.3 RATIO (0.9-2.4); AST(SGOT) 26 U/L (<=31); Alanine Aminotransfer ALT/SGPT 24 U/L (<=34); Albumin, Serum 4.3 g/dL (3.5-5.0); Alkaline Phosphatase 84 U/L (35-104); Anion Gap 13 (5-15); BUN 10 mg/dL (4-19); BUN/Creat Ratio 15.3 RATIO (10-20); Calcium,Total 10.1 mg/dL (7.6-11.0); Carbon Dioxide 22.2 mmol/L (21.0-32.0); Chloride 104 mmol/L (98-108); Creatinine, Serum 0.67 mg/dL (0.70-1.20); EST Glomerular Filtration Rate 102 (>60); Globulin 3.2 g/dL (2.2-4.2); Glucose 103 mg/dL (70-99); Protein, Total 7.4 g/dL (5.9-8.4); Sodium Level 140 mmol/L (133-145); Total Bilirubin 0.26 mg/dL (0.00-1.30)
[2024-06-29 20:36] LABS: Cholesterol 202 mg/dL (<=200); High Density Lipoprotein 54 mg/dL; Low Density Lipoprotein Calc. 114 mg/dL; Triglycerides 171 mg/dL; Very Low Density Lipoprotein 34 mg/dL (5-40); cholesterol:hdl ratio screen 3.72
[2024-06-29 20:45] LABS: Hemoglobin A1c 5.8 % (<=5.6)
== END | disposition home or self-care (01) ==
LOC: BIMLAB 15:13
PROVIDERS: PCP Internal Medicine; Referring Provider Internal Medicine; Visit Provider Internal Medicine
DX: I10 Essential (primary) hypertension (principal); E11.69 Type 2 diabetes mellitus with other specified complication
CPT/HCPCS: 36415; 80053; 80061; 83036; 85025

== ENCOUNTER → 2024-09-15 | Outpatient (CLI) | payer BC, SELFPAY | END | disposition home or self-care (01) | LOC: SL 13:46 | PROVIDERS: PCP Internal Medicine; Referring Provider Nurse Practitioner Family; Visit Provider Nurse Practitioner Family | DX: G47.33 Obstructive sleep apnea (adult) (pediatric) (principal) ==

== ENCOUNTER → 2024-09-29 | Outpatient (CLI) | payer OTHER, SELFPAY ==
--- OUTSIDE RECORDS SUMMARY | 2024-10-13 06:09 | XMS RPT_ITS | CCD ---
Author Organization [facility] Care Team Providers Care Sales Office Coordinator Name Role Phone Dr. Jess White Primary Care Provider [phone]) Dr. Jess White Attending Provider [phone] Dr. Jess White Referring Provider [phone])2 Dr. Jess White Primary Care Provider 1(33 0) Christopher, Dr. Mercado Referring Provider [phone])2 DAGO Brand Attending Provider [facility] le Dr. Jess White Attending Provider [phone])2 Dr. Jess White Primary Care Provider 1(33 0) Dr. Jess White Referring Provider [phone])2 MD Mike Rizzo Attending Provider [phone] Dr. Alin Luque Attending Provider [phone] Dr. Jess White Primary Care Provider 1(33 0) Dr. Jess White Attending Provider [phone])2 Dr. Jess White Referring Provider [phone])2 DAGO Baxter Attending Provider 1(330) Dr. Jess White Primary Care Provider 1(33 0) Dr. Jess White Referring Provider [phone])2 Dr. Jess White Attending Provider [phone])2 Dr. Jess White MD Primary Care Provider Christopher JAIN, Dr. Mercado Attending Provider 1(33 0) Christopher JAIN, Dr. Mercado Referring Provider 1(33 0) Christopher JAIN, Dr. Mercado Primary Care Provider Christopher JAIN, Dr. Mercado Attending Provider 1(33 0) Christopher JAIN, Dr. Mercado Referring Provider [phone] Ibis TERRAZAS-CFrancesca Attending Provider Ibis TRAFFIC SERGEANT-CFrancesca Referring Provider Oleghe, Efewongbe Referring Unavailable Oleghe, Efewongbe Attending Unavailable Oleghe, Efewongbe Primary Care Unavailable Oleghe, Efewongbe Primary Care Unavailable Francesca Bamuann Attending Unavailable Francesca Baumann Referring Unavailable Oleghe, Efewongbe Referring Unavailable Oleghe, Efewongbe Primary Care Unavailable Oleghe, Efewongbe Attending Unavailable Oleghe, Efewongbe Referring Unavailable Oleghe, Efewongbe Primary Care Unavailable Francesca Baumann Attending Unavailable Oleghe, Efewongbe Attending Unavailable Oleghe, Efewongbe Referring Unavailable Oleghe, Efewongbe Primary Care Unavailable Lisa Kaplan Attending Unavailable Oleghe, Efewongbe Referring Unavailable Oleghe, Efewongbe Primary Care Unavailable Oleghe, Efewongbe Attending Unavailable Oleghe, Efewongbe Referring Unavailable Oleghe, Efewongbe Primary Care Unavailable Oleghe, Efewongbe Attending Unavailable Oleghe, Efewongbe Referring Unavailable Oleghe, Efewongbe Primary Care Unavailable Medications Current Medications Medication Drug Class(es) Dates Sig (Normalized) Sig (Original) baclofen 10 mg oral tablet (18 sources) gamma-Aminobutyri c Acid-ergic Agonist Start: 09-12-2020 End: 11-29-2021 take 1 tablet by mouth twice daily as needed for muscle spasms Baclofen 10 mg tablet Active 10 mg PO TWICE A DAY as needed for muscle spasm 180 November 29, 2021 3:24pm Blood Sugar Diagnostic (7 sources) Start: 11-16-2019 Blood Sugar Diagnostic Active 0 .ROUTE .MEDSUPPLY 50 November 16, 2019 2:25pm As directed Start: 11-16-2019 Blood Sugar Di agnostic Active 0 .ROUTE .MEDSUPPLY 50 November 16, 2019 12:00am As directed hydrocortisone 25 mg/ml topical cream (3 sources) Corticosteroid Start: 12-25-2023 Hydrocortisone 2.5 % cream Active 1 NMA TOPICAL TWICE A DAY as needed for rash 28.35 December 25, 2023 12:00am iron-vitamin B complex with C 27 mg-300 mg tablet (7 sources) Start: 02-15-2020 iron-vitamin B complex with C 27 mg-300 mg tablet Active TABLET PO February 15, 2020 4:13pm Start: 02-15-2020 iron-vitamin B complex with C 27 mg-300 mg tablet Active TABLET PO February 15, 2020 1:00am Iron-Vitamin B Complex With C 27-300 mg tablet (3 sources) Start: 02-15-2020 Iron-Vitamin B Complex With C 27-300 mg tablet Active {tbl} PO February 15, 2020 1:00am meloxicam 15 mg oral tablet (8 sources) Nonsteroidal Anti-inflammatory Drug Start: 06-12-2023 End: 08-17-2023 Meloxicam 15 mg tablet Active 15 mg PO DAILY as needed for pain August 17, 2023 5:24pm Take daily for 5-7 days then just as needed. Multivitamin With Iron (Daily Vitamin With Iron) tablet (10 sources) Start: 09-14-2019 take 1 tablet by mouth once daily Multivitamin With Iron (Daily Vitamin With Iron) tablet Active 1 TABLET PO DAILY September 14, 2019 3:48pm Start: 09-14-2019 Multivitamin W ith Iron (Daily Vitamin With Iron) tablet Active 1 {tbl} PO DAILY September 14, 2019 12:00am Start: 09-14-2019 take 1 tablet by melecio once daily Multivitamin With Iron (Daily Vitamin With Iron) tablet Active 1 TABLET PO DAILY September 14, 2019 12:00am omeprazole 20 mg delayed release oral tablet (10 sources) Proton Pump Inhibitor Start: 02-18-2019 take 1 tablet by mouth once daily Omeprazole Magnesium (Prilosec Otc) 20 mg tablet,delayed release (DR/EC) Active 20 mg PO DAILY February 18, 2019 1:00am Rhubarb Root Extract (Estroven Cmplt Menopause Rlf) 4 mg tablet (10 sources) Start: 09-12-2019 Rhubarb Root E xtract (Estroven Cmplt Menopause Rlf) 4 mg tablet Active MG PO September 12, 2019 1:05pm Start: 09-12-2019 Rhubarb Root E xtract (Estroven Cmplt Menopause Rlf) 4 mg tablet Active mg PO September 12, 2019 12:00am Start: 09-12-2019 Rhubarb Root E xtract (Estroven Cmplt Menopause Rlf) 4 mg tablet Active MG PO September 12, 2019 12:00am Tirzepatide (10 sources) Start: 06-12-2023 Tirzepatide Ac tive 2.5 MG SC EVERY WEEK 2 June 12, 2023 4:04pm Start: 04-27-2023 End: 06-12-2023 Tirzepatide Discontinued 2.5 MG SC EVERY WEEK 2 April 27, 2023 2:09pm June 12, 2023 4:04pm Start: 04-02-2023 End: 04-27-2023 Tirzepatide Discontinued 5 M G SC EVERY WEEK 2 April 02, 2023 3:16pm April 27, 2023 2:09pm Start: 03-27-2023 End: 04-02-2023 Tirzepatide Discontinued 2.5 MG SC EVERY WEEK 2 March 27, 2023 5:02pm April 02, 2023 3:17pm Start: 02-20-2023 End: 03-20-2023 Tirzepatide Discontinued 2.5 MG SC EVERY WEEK 2 February 20, 2023 1:00am March 20, 2023 1:05am Completed/Discontinued Medications Medication Drug Class(es) Dates Sig (Normalized) Sig (Original) benzonatate 100 mg oral capsule (20 sources) Non-narcotic Antitussive Start: 04-10-2022 End: 07-23-2022 take 1 capsule by mouth twice daily as needed for cough Benzonatate 100 mg capsule Discontinued 100 mg PO TWICE A DAY as needed for cough April 10, 2022 3:18pm July 23, 2022 3:18pm Start: 11-15-2020 End: 05-15-2021 take 1 capsule by mouth twice daily as needed for cough Benzonatate (Tessalon Perles) 100 mg capsule Discontinued 100 mg PO TWICE A DAY as needed for cough December 25, 2020 8:51am May 15, 2021 3:32pm ergocalciferol 1.25 mg oral capsule (20 sources) Provitamin D2 Compound Start: 04-30-2020 End: 08-30-2024 Ergocalciferol (Vitamin D2) 1,250 mcg (50,000 unit) capsule Discontinued [id number] U PO EVERY WEEK December 28, 2023 10:10am August 30, 2024 10:15am Start: 02-18-2019 End: 02-23-2023 Ergocalciferol (Vitamin D2) 50,000 unit capsule Discontinued [id number] U PO EVERY WEEK February 18, 2019 1:00am April 30, 2020 12:34pm Flucelvax Quad (PF) (flu vac qs 2020(2 yr up)CD(PF)) 60 mcg (15 mcg x (2 sources) Start: 12-19-2020 End: 12-19-2020 inject 15 ug by intramuscular injection once Flucelvax Quad (PF) (flu vac qs 2020(2 yr up)CD(PF)) 60 mcg (15 mcg x Discontinued 0.5 ML IM ONCE 0.5 December 19, 2020 3:52pm December 19, 2020 4:37pm FLUoxetine 20 mg oral capsule (20 sources) Serotonin Reuptake Inhibitor Start: 03-04-2022 End: 08-22-2024 take 1 capsule by mouth once daily in the morning Fluoxetine 40 mg capsule Discontinued 0 .ROUTE .COMPLEX March 19, 2023 2:54pm December 25, 2023 4:52pm TAKE 1 CAPSULE BY MOUTH ONCE DAILY IN THE MORNING. TAKE IN ADDITION TO THE 20MG CAPSULE FOR A TOTAL DAILY DOSE OF 60MG. Start: 05-16-2020 End: 08-22-2024 take 1 capsule by mouth once daily Fluoxetine (Prozac) 20 mg capsule Discontinued 20 mg PO DAILY April 02, 2023 3:17pm December 25, 2023 4:52pm Start: 05-16-2020 End: 03-19-2023 Fluoxetine 40 mg capsule Discontinued 40 mg PO EVERY MORNING May 15, 2021 4:55pm March 04, 2022 6:48pm Take with 20 mg capsule for a total dose of 60mg Start: 09-12-2019 End: 05-16-2020 take 3 capsules by mouth once daily Fluoxetine (Prozac) 20 mg capsule Discontinued 60 mg PO DAILY April 30, 2020 12:33pm May 16, 2020 4:56pm Start: 02-18-2019 End: 09-12-2019 take 1 capsule by mouth once daily Fluoxetine (Prozac) 20 mg capsule Discontinued 20 mg PO DAILY February 18, 2019 1:00am September 12, 2019 1:05pm fluticasone propionate 0.05 mg/actuat metered dose nasal spray (7 sources) Corticosteroid Start: 2022 End: 07-23-2022 take 50 ug nasal route twice daily Fluticasone Propionate (Flonase Allergy Relief) 50 mcg/actuation spray,suspension Discontinued 1 NMA INTRANASAL TWICE A DAY 2022 1:00am July 23, 2022 3:18pm administer into each nostril Start: 2022 End: 07-23-2022 take 1 spray(s) nasal route twice daily Fluticasone Propionate (Flonase Allergy Relief) 50 mcg/actuation spray,suspension Discontinued 1 SPRAY INTRANASAL TWICE A DAY 2022 1:00am July 23, 2022 3:18pm administer into each nostril folic acid 0.4 mg / vitamin b12 0.5 mg oral tablet (20 sources) Vitamin B12 Start: 02-18-2019 End: 05-16-2020 Vitamin E11-Tzwum Acid 500-400 mcg tablet Discontinued 1 {tbl} PO DAILY April 30, 2020 12:34pm May 16, 2020 4:37pm Start: 02-18-2019 End: 05-16-2020 take 1 tablet by mouth once daily Vitamin L58-Mwfjk Acid Discontinued 1 TABLET PO DAILY April 30, 2020 12:34pm May 16, 2020 4:37pm hydroCHLOROthiazide 25 mg oral tablet (20 sources) Thiazide Diuretic Start: 09-12-2019 End: 02-15-2024 Hydrochlorothiazide 25 mg tablet Discontinued 12.5 mg PO DAILY September 08, 2022 11:38am February 15, 2024 9:38am Start: 09-12-2019 End: 09-08-2022 take 12.5 mg by mouth once daily Hydrochlorothiazide Discontinued 12.5 MG PO DAILY December 25, 2020 8:51am May 15, 2021 4:55pm Start: 02-18-2019 End: 09-12-2019 take 1 tablet by mouth once daily Hydrochlorothiazide 25 mg tablet Discontinued 25 mg PO DAILY February 18, 2019 1:00am September 12, 2019 1:05pm 3 ml liraglutide 6 mg/ml pen injector (3 sources) GLP-1 Receptor Agonist Start: 09-18-2023 End: 12-25-2023 Liraglutide (Victoza 2-Matty) 0.6 mg/0.1 mL (18 mg/3 mL) pen injector Discontinued 1.2 mg SC DAILY 10 03September 18, 2023 12:00am December 25, 2023 2:27pm 24 hr metFORMIN hydrochloride 500 mg extended release oral tablet (20 sources) Biguanide Start: 11-14-2022 End: 08-10-2024 take 1 tablet by mouth twice daily Metformin 500 mg tablet extended release 24 hr Discontinued 500 mg PO TWICE A DAY 180 September 21, 2023 4:08pm August 10, 2024 12:59pm Start: 08-23-2021 End: 11-14-2022 take 4 tablets by mouth once daily Metformin 500 mg tablet extended release 24 hr Discontinued 0 .ROUTE .COMPLEX 360 March 04, 2022 6:48pm November 14, 2022 3:04pm TAKE 4 TABLETS BY MOUTH DAILY Start: 08-23-2021 End: 11-14-2022 take 4 tablets by mouth once daily Metformin Discontinued 0 .ROUTE .COMPLEX 360 March 04, 2022 6:48pm November 14, 2022 3:04pm TAKE 4 TABLETS BY MOUTH DAILY Start: 05-15-2021 End: 08-23-2021 Metformin 500 mg tablet exte nded release 24 hr Discontinued 2000 mg PO DAILY 360 May 15, 2021 3:43pm August 23, 2021 2:50pm Start: 05-15-2021 End: 08-23-2021 take 2000 mg by mouth once daily Metformin Discontinued 2000 MG PO DAILY 360 May 15, 2021 3:43pm August 23, 2021 2:50pm Start: 09-12-2020 End: 05-15-2021 take 1 tablet by mouth twice daily Metformin 500 mg tablet extended release 24 hr Discontinued 500 mg PO TWICE A DAY September 12, 2020 3:39pm May 15, 2021 3:43pm Start: 05-16-2020 End: 09-12-2020 take 1 tablet by mouth once daily in the evening Metformin 500 mg tablet extended release 24 hr Discontinued 500 mg PO EVERY EVENING May 16, 2020 1:00am September 12, 2020 3:40pm Start: 09-14-2019 End: 05-16-2020 take 1 tablet by mouth twice daily Metformin 500 mg tablet Discontinued 500 mg PO TWICE A DAY 180 April 30, 2020 12:33pm May 16, 2020 4:42pm Nirmatrelvir-Ritonavir (7 sources) Start: 2022 End: 07-23-2022 Nirmatrelvir-Ritonavir (Paxlovid (Eua)) 300 mg (150 mg x 2)-100 mg tablets,dose pack Discontinued 0 PO .COMPLEX 2022 1:00am July 23, 2022 3:19pm take TWO 150 mg tablets of nirmatrelvir with ONE 100 mg tablet of ritonavir twice daily for 5 days PO ondansetron 4 mg disintegrating oral tablet (7 sources) Serotonin-3 Receptor Antagonist Start: 04-10-2022 End: 07-23-2022 take 1 tablet by mouth every eight hours as needed for nausea and vomiting Ondansetron 4 mg tablet,disintegrating Discontinued 4 mg PO Q8H as needed for nausea and vomiting April 10, 2022 1:00am July 23, 2022 3:19pm potassium chloride 20 meq extended release oral tablet (20 sources) Start: 05-17-2020 End: 08-22-2024 take 1 tablet by mouth twice daily Potassium Chloride 20 mEq tablet extended release Discontinued 20 meq PO TWICE A DAY October 09, 2023 12:57pm August 22, 2024 1:22pm Start: 02-18-2019 End: 05-17-2020 take 1 tablet by mouth once daily Potassium Chloride 20 mEq tablet extended release Discontinued 20 meq PO DAILY February 18, 2019 1:00am May 17, 2020 2:07pm semaglutide 3 mg oral tablet (6 sources) Start: 11-14-2022 End: 02-20-2023 take 1 tablet by mouth once daily Semaglutide (Rybelsus) 3 mg tablet Discontinued 3 mg PO DAILY November 14, 2022 12:00am February 20, 2023 4:28pm Semaglutide 7 mg tablet (3 sources) Start: 09-18-2023 End: 09-18-2023 take 1 tablet by mouth once daily Semaglutide 7 mg tablet Discontinued 7 mg PO DAILY September 18, 2023 12:00am September 18, 2023 3:47pm Tirzepatide (Weight Loss) (3 sources) Start: 12-28-2023 End: 07-06-2024 Tirzepatide (Weight Loss) (Zepbound) 2.5 mg/0.5 mL pen injector Discontinued 2.5 mg SC EVERY WEEK 2 December 28, 2023 12:00am July 06, 2024 11:18am for 4 weeks Start: 12-28-2023 Tirzepatide (W eight Loss) (Zepbound) 2.5 mg/0.5 mL pen injector Active 2.5 mg SC EVERY WEEK 2 December 28, 2023 12:00am for 4 weeks Tirzepatide 2.5 mg/0.5 mL pe n injector (12 sources) Start: 06-12-2023 End: 09-18-2023 Tirzepatide 2.5 mg/0.5 mL pe n injector Discontinued 2.5 mg SC EVERY WEEK 2 June 12, 2023 4:04pm September 18, 2023 3:15pm Start: 04-27-2023 End: 06-12-2023 Tirzepatide 2.5 mg/0.5 mL pe n injector Discontinued 2.5 mg SC EVERY WEEK 2 April 27, 2023 2:09pm June 12, 2023 4:04pm Start: 03-27-2023 End: 04-02-2023 Tirzepatide 2.5 mg/0.5 mL pe n injector Discontinued 2.5 mg SC EVERY WEEK 2 March 27, 2023 5:02pm April 23, 2023 1:00am April 02, 2023 3:17pm Start: 02-20-2023 End: 03-20-2023 Tirzepatide 2.5 mg/0.5 mL pe n injector Discontinued 2.5 mg SC EVERY WEEK 2 February 20, 2023 1:00am March 19, 2023 1:00am March 20, 2023 1:05am Tirzepatide 5 mg/0.5 mL pen injector (3 sources) Start: 04-02-2023 End: 04-27-2023 Tirzepatide 5 mg/0.5 mL pen injector Discontinued 5 mg SC EVERY WEEK 2 April 02, 2023 3:16pm April 27, 2023 2:09pm topiramate 100 mg oral tablet (20 sources) Start: 02-18-2019 End: 12-28-2023 take 1 tablet by mouth twice daily Topiramate (Topamax) 100 mg tablet Discontinued 100 mg PO TWICE A DAY April 15, 2022 2:59pm December 28, 2023 10:10am Problems Active Problems Problem Classification Problem Date Documented Date Episodic/Chronic Allergic reactions (3 sources) Inflammatory dermatosis; Translations: [Dermatitis, unspecified] 12-25-2023 Episodic Anxiety disorders (20 sources) Mixed anxiety and depressive disorder; Translations: [Anxiety disorder, unspecified] Chronic Diabetes mellitus with complications (1 source) Type 2 diabetes mellitus with other specified complication; Translations: [Type 2 diabetes mellitus with other specified complication] Onset: 07-06-2024 Chronic Diabetes mellitus without complication (20 sources) Type 2 diabetes mellitus; Translations: [Type 2 diabetes mellitus without complications] Chronic Diabetes mellitus without complication (10 sources) Prediabetes; Translations: [Prediabetes] 09-14-2019 Episodic Essential hypertension (20 sources) Hypertensive disorder; Translations: [Essential (primary) hypertension] Onset: 07-06-2024 Chronic Fluid and electrolyte disorders (7 sources) Hypokalemia; Translations: [Hypokalemia] 06-12-2023 Episodic Immunizations and screening for infectious disease (11 sources) Needs influenza immunization; Translations: [Encounter for immunization] 12-19-2020 Episodic Mood disorders (12 sources) Major depressive disorder; Translations: [Major depressive disorder, single episode, unspecified] 02-18-2019 Chronic Nutritional deficiencies (9 sources) Vitamin D deficiency; Translations: [Vitamin D deficiency, unspecified] Chronic Osteoarthritis (7 sources) Osteoarthrosis of the carpometacarpal joint of the thumb; Translations: [Unilateral primary osteoarthritis of first carpometacarpal joint, left hand] 08-05-2022 Chronic Other connective tissue disease (7 sources) Pain in thumb ; Translations: [Pain in left finger(s)] 07-23-2022 Episodic Other connective tissue disease (3 sources) Pain in left finger(s); Translations: [Pain in limb] 07-23-2022 Episodic Other lower respiratory disease (10 sources) Postviral cough; Translations: [Post-viral cough syndrome] 12-19-2020 Episodic Other non-traumatic joint disorders (5 sources) Pain in elbow; Translations: [Pain in right elbow] 06-12-2023 Episodic Other non-traumatic joint disorders (2 sources) Pain in right elbow; Translations: [Pain in joint, upper arm] 06-12-2023 Episodic Other nutritional; endocrine; and metabolic disorders (4 sources) Simple obesity ; Translations: [Other obesity due to excess calories] 02-18-2019 Chronic Other nutritional; endocrine; and metabolic disorders (12 sources) Body mass index 40+ - severely obese; Translations: [Body mass index (BMI) 40.0-44.9, adult] 02-18-2019 Chronic Other nutritional; endocrine; and metabolic disorders (6 sources) Obesity caused by energy imbalance; Translations: [Other obesity due to excess calories] 02-18-2019 Chronic Other nutritional; endocrine; and metabolic disorders (6 sources) Body mass index (BMI) 40.0-44.9, adult; Translations: [Body Mass Index 40.0-44.9, adult] 11-14-2022 Chronic Other nutritional; endocrine; and metabolic disorders (5 sources) Obesity; Translations: [Obesity, unspecified] 03-02-2024 Chronic Other upper respiratory infections (7 sources) Upper respiratory infection; Translations: [Acute upper respiratory infection, unspecified] 11-14-2022 Episodic Residual codes; unclassified (12 sources) Obstructive sleep apnea syndrome; Translations: [Obstructive sleep apnea (adult) (pediatric)] 02-18-2019 Chronic Residual codes; unclassified (1 source) Obstructive sleep apnea (adult) (pediatric); Translations: [Obstructive sleep apnea (adult) (pediatric)] Onset: 09-21-2024 Chronic Spondylosis; intervertebral disc disorders; other back problems (20 sources) Backache; Translations: [Dorsalgia, unspecified] Episodic Viral infection (10 sources) Disease caused by 2019-nCoV; Translations: [COVID-19] 11-15-2020 Episodic Comment on above: 11/03/20 Past or Other Problems Problem Classification Problem Date Documented Da te Episodic/Chronic Other screening for suspected conditions (not mental disorders or infectious disease) (10 sources) Patient encounter status; Translations: [Encounter for screening for other suspected endocrine disorder] Onset: 10-22-2023 Episodic Results Test Name Value Interpretation Reference Range Facility Pulmonary Visit Reporton Pulmonary Visit Report [facility] [address] [place] [address] OFFICE VISIT Date of Service: 08/31/24 MR#: [id number] Acct: [id number] Name: LINNEA FLYNN Rep #: [id number] : 1965 Provider: Francesca Baumann NP Age/Sex: 59/F [place] [facility] [place] Status: Signed Assessment and Plan Assessment and Plan (1) OSMIN (obstructive sleep apnea): Status: Chronic Plan: The apnea appears to be well-controlled. I have recommended that she work with RT for PAP education and mask fit. The patient may benefit from a fullface style mask at this time. I do believe that she has suboptimal sleep times as it appears that she is working to increase time on the weekend. I have recommended a nocturnal oximetry prior to follow up in 3-4 months. She is agreeable. (2) Major depressive disorder: Status: Chronic Qualifiers: Active/Remission status: remission status unspecified Major depression recurrence: unspecified whether recurrent Qualified Code(s): F32.9 - Major depressive disorder, single episode, unspecified Plan: Complicates exam, plan, care and prognosis. She is using prozac which can suppress REM, I recommend taking it in the morning. Depression may not be adequately controlled which could be producing daytime tiredness. (3) Obesity: Status: Chronic Qualifiers: Body mass index: BMI 39.0-39.9 Obesity classification: adult class 2 (BMI 35 - 39.9) Obesity type: due to excess calories Serious obesity comorbidity presence: with serious comorbidity Qualified Code(s): E66.812 - Obesity, class 2; E66.01 - Morbid (severe) obesity due to excess calories; Z68.39 - Body mass index [BMI] 39.0-39.9, adult Plan: Weight loss is suggested. The patient is to watch calories and eat a prudent diet. Some level of exercise is suggested. A formal weight loss program might also be of benefit. Orders: Orders Self Mgmnt Educ Training 09/15/24 G47.33 - Obstructive sleep apnea (adult) (pediatric) Plan Details Follow Up: 3-4 months (LMR) HPI HPI Comments Details: Patient is a 59-year-old female who presents today for follow-up of sleep apnea. She is ambulatory and currently on room air. She has not recently been seen in the ED or urgent care for any respiratory illness. She has not required any antibiotics or prednisone for breathing problems. She denies any difficulty with shortness of breath. She denies any cough, sputum production or hemoptysis. She denies any wheezing, chest tightness, chest pain or palpitations. The patient reports she is experiencing a headache in the morning at times and other times throughout the day. She reports that her mouth is dry. She has noticed drooling. She does not feel rested. She does nap on the weekends if she can but does not use the machine. She would like to consider a fullface style mask. She is a side and stomach sleeper. She does find that she needs a quiet to be able to sleep and her current set up is making noise. She is not experiencing excessive nocturia. ESS is 11. She goes to bed at 9:30 and gets up at 6:30. On the weekends she gets up at 9:30. She is awakened at night frequently due to mask leaking. She is frustrated about the noise her mask is making. Compliance report from August 25, 2024 shows 100% compliance for the last 30 days. She is using the device 8 hours and 11 minutes average nightly. She is using BiPAP at 18 over 14 cm. There is minimal air leak identified and AHI is 2.3. This is reviewed with patient today. Intake Vital Signs 03/02/24 07:47 08/31/24 07:51 Height 5 ft 4 in 5 ft 4 in Weight: 228 lb BMI 39.1 BP 133/81 H Blood Pressure Location Lt radial Position Sitting Respiration 20 H Pulse 73 Pulse Source Monitor Temp 97.4 F L Temperature Source Temporal Artery Pulse Oximetry (%) 96 Oxygen Delivery Method room air Intake Visit Reasons: 6 M FU 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 DME Vendor: mala Graham Accompanied by: Self Is patient in pain?: No Allergies No Known Allergies Allergy (Verified 08/31/24 11:15) Medications ???Medication ???Instructions ???Recorded ???Confirmed ???Type omeprazole magnesium 20 mg 20 mg PO DAILY 02/18/19 08/31/24 H istory tablet,delayed release (Prilosec OTC) rhubarb root extract 4 mg tablet mg PO 09/12/19 08/31/24 History (Estroven Complete Menopause Relief) multivitamin with iron (Daily 1 tab PO DAILY 09/14/19 08/31/24 H istory Vitamin with Iron tablet) blood sugar diagnostic #50 ea 11/16/19 08/31/24 Rx iron-vitamin B complex with C 27 tab PO 02/15/20 08/31/24 History mg-300 mg tablet baclofen 10 mg tablet 10 mg PO BID PRN muscle spasm #180 11/29/21 08/31/24 Rx tabs meloxicam 15 mg tablet 15 mg PO DAILY PRN pain #30 tabs 0 08/17/23 08/31/24 Rx hydrocortisone 2.5 % topic (more content not included)... Normal [facility] Internal Medicine Office Vis iton 07-06-2024 Internal Medicine Office Visit [facility] [address] [place] [address] [address] [place] [address] OFFICE VISIT Date of Service: 07/06/24 MR#: [id number] Acct: [id number] Name: LINNEA FLYNN Rep #: [id number] : 1965 Provider: Dr. Jess alicia MD Age/Sex: 59/F [place] [facility] [place] Status: Signed Intake Vital Signs 04/01/24 10:54 07/06/24 11:08 Height 5 ft 4 in 5 ft 4 in Weight: 234 lb BMI 40.1 BP 138/80 H Blood Pressure Location Lt brachial Position Sitting Respiration 18 Pulse 84 Pulse Source Monitor Temp 97.7 F L Temp Source Temporal Pulse Oximetry (%) 98 Oxygen Delivery Method room air Intake Visit Reasons: 3 M FU Chief Complaint: 3 M FU 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 Is patient in pain?: No Allergies No Known Allergies Allergy (Verified 07/06/24 11:15) Medications ???Medication ???Instructions ???Recorded ???Confirmed ???Type omeprazole magnesium 20 mg 20 mg PO DAILY 02/18/19 07/06/24 H istory tablet,delayed release (Prilosec OTC) rhubarb root extract 4 mg tablet mg PO 09/12/19 07/06/24 History (Estroven Complete Menopause Relief) multivitamin with iron (Daily 1 tab PO DAILY 09/14/19 07/06/24 H istory Vitamin with Iron tablet) blood sugar diagnostic #50 ea 11/16/19 07/06/24 Rx iron-vitamin B complex with C 27 tab PO 02/15/20 07/06/24 History mg-300 mg tablet baclofen 10 mg tablet 10 mg PO BID PRN muscle spasm #180 11/29/21 07/06/24 Rx tabs meloxicam 15 mg tablet 15 mg PO DAILY PRN pain #30 tabs 0 08/17/23 07/06/24 Rx metformin 500 mg tablet,extended 500 mg PO BID #180 tabs 09/21/23 0 07/06/24 Rx release 24 hr potassium chloride 20 mEq 20 meq PO BID #180 tabs 10/09/23 0 07/06/24 Rx tablet,extended release fluoxetine 20 mg capsule (Prozac) 20 mg PO DAILY #90 caps 12/25/23 07/06/24 Rx fluoxetine 40 mg capsule See Rx Instructions .Route 4 07/06/24 Rx .COMPLEX #90 caps hydrocortisone 2.5 % topical cream 1 applic topical BID PRN rash 07/06/24 Rx #28.35 grams ergocalciferol (vitamin D2) 1,250 50,000 unit PO QWEEK #20 caps 07/06/24 Rx mcg (50,000 unit) capsule topiramate 100 mg tablet (Topamax) 100 mg PO BID #180 tabs 12/28/23 07/06/24 Rx hydrochlorothiazide 25 mg tablet 12.5 mg (1/2 x 25 mg) PO DAILY #90 02/15/24 07/06/24 Rx tabs Have you fallen in the past year?: No PFSH Medical History Dermatitis Right elbow pain Hypokalemia URI (upper respiratory infection) Osteoarthritis of carpometacarpal joint of left thumb Pain of left thumb Musculoskeletal back pain Screening for thyroid disorder Vitamin D deficiency Health care maintenance Anxiety and depression Type 2 diabetes mellitus Flu vaccine need Post-viral cough syndrome COVID Back pain BMI 40.0-44.9, adult Other obesity due to excess calories Major depressive disorder Hypertension OSMIN (obstructive sleep apnea) Surgical History History of tonsillectomy History of hysterectomy History of cholecystectomy Family History Father Hypertension Diabetes Mother Hypertension Diabetes Myocardial infarction Lupus (systemic lupus erythematosus) Sister Diabetes Social History Smoking Status: Never smoker second hand exposure: No alcohol intake: never substance use type: does not use HPI HPI Chief Complaint: 3 M FU Details: LINNEA FLYNN, is a 59 F who presents to the office today for follow-up of her chronic conditions. Recently had labs done, A1c was down from 6-5.8. Currently on metformin and has continued to make dietary and lifestyle changes. She has questions about online/commpounded GLP-1 prescriptions. History of hypertension currently on hydrochlorothiazide. Blood pressure slightly elevated today however she states that she had some anxiety about possibly being late for her visit today which may explain her reading. Reports compliance with her medication. Other chronic medical conditions are stable. ROS Const Constitutional: No body ache, excessive sweating, fatigue, fever(s), frequent falls, headache(s), snoring, weakness, weight change, sleep problems or change in appetite Eyes Eyes: No blurry vision, change in vision, bulging eyes, floaters, visual disturbances, eye pain or Light sensitivity ENT ENT: No abnormal hearing, ear or mastoid pain, tinnitus, balance problems, nosebleed/epistaxis, nasal congestion, headache(s), neck pain or sore throat Resp Respiratory: No cough, excessive phlegm production, pain on inspiration, shortness of breath, snoring or wheezing Cardio Cardiology: No ch (more content not included)... Normal [facility] Absolute lymphocyte countOrd ered By: Jess White on 06-29-2024 Lymphocytes Auto (Unsp spec) [#/Vol] 1.91 10*3/uL 0.83-4.51 [facility] Absolute neutrophil countOrd ered By: Jess White on 06-29-2024 Neutrophils (Bld) [#/Vol] 4.6 10*3/uL 2.0-7.7 [facility] Anion gap in Serum or Plasma Ordered By: Jess White on 06-29-2024 Anion gap [Moles/Vol] 13 mmol/L 5-15 [facility] Automated lymphocyte count a s percentage of total leukocytesOrdered By: Jess White on 06-29-2024 Lymphocytes/100 WBC Auto (Unsp spec) 26.1 % 19-41 [facility] BUN/creatinine ratioOrdered By: samysanta feovidio White on 06-29-2024 Urea nitrogen/Creatinine [Mass ratio] 15.3 mg/mg 10-20 [facility] Basophil percentageOrdered B y: Jess White on 06-29-2024 Basophils/100 WBC (Bld) 0.3 % 0-1 [facility] Bilirubin, totalOrdered By: Jess White on 06-29-2024 Bilirubin [Mass/Vol] 0.26 mg/dL 0.00-1.30 [facility] CBC W/Diff, Automatedon 06-05 Absolute Lymph 1.91 X10 3/uL Normal 0.83-4.51 [facility] Comment on above: Performed By: #### L 501.9985, L500.4100, L100.0100, L500.4050 #### [facility] [address] [place], [place], [id number] Absolute Neut 4.6 X10 3/uL Normal 2.0-7.7 [facility] Comment on above: Performed By: #### L 501.9985, L500.4100, L100.0100, L500.4050 #### [facility] [address] [place], [address] Basophils/100 WBC (Bld) 0.3 % Normal 0-1 [facility] Comment on above: Performed By: #### L 501.9985, L500.4100, L100.0100, L500.4050 #### [facility] [address] [place], [address] Eosinophils/100 WBC (Bld) 4.8 % Normal 0-5 [facility] Comment on above: Performed By: #### L 501.9985, L500.4100, L100.0100, L500.4050 #### [facility] [address] [place], [address] Erythrocyte distribution width (RBC) [Ratio] 14.5 % Normal 11.6-14.6 [facility] Comment on above: Performed By: #### L [id number], L500.4100, L100.0100, L500.4050 #### [facility] [address] [place], [address] Hematocrit (Bld) [Volume fraction] 40.5 % Normal 37-47 [facility] Comment on above: Performed By: #### L 501.9985, L500.4100, L100.0100, L500.4050 #### [facility] [address] [place], [address] Hemoglobin (Bld) [Mass/Vol] 13.0 g/dL Normal 12.0-15.0 [facility] Comment on above: Performed By: #### L 501.9985, L500.4100, L100.0100, L500.4050 #### [facility] [address] [place], [address] IG% 0.400 Normal 0.0-0.9 [facility] Comment on above: Result Comment: IG% - Immature Granulocytes (promyelocytes, myelocytes and metamyelocytes) > 1% indicates that a LEFT SHIFT is Present. Performed By: #### L 501.9985, L500.4100, L100.0100, L500.4050 #### [facility] [address] [place], [address] Lymphocytes/100 WBC (Bld) 26.1 % Normal 19-41 [facility] Comment on above: Performed By: #### L 501.9985, L500.4100, L100.0100, L500.4050 #### [facility] [address] [place], [address] MCH (RBC) [Entitic mass] 28.0 pg Normal 27.0-32.0 [facility] Comment on above: Performed By: #### L [id number], L500.4100, L100.0100, L500.4050 #### [facility] [address] [place], [address] MCHC (RBC) [Mass/Vol] 32.1 g/dL Normal 32-36 [facility] Comment on above: Performed By: #### L 501.9985, L500.4100, L100.0100, L500.4050 #### [facility] [address] [place], [address] MCV (RBC) [Entitic vol] 87.3 fL Normal 81-99 [facility] Comment on above: Performed By: #### L 501.9985, L500.4100, L100.0100, L500.4050 #### [facility] [address] [place], [address] Monocytes/100 WBC (Bld) 6.3 % Normal 0-10 [facility] Comment on above: Performed By: #### L 501.9985, L500.4100, L100.0100, L500.4050 #### [facility] [address] [place], [address] Neutrophils/100 WBC (Bld) 62.1 % Normal 47-70 [facility] Comment on above: Performed By: #### L 501.9985, L500.4100, L100.0100, L500.4050 #### [facility] [address] [place], [address] Nucleated RBC (Bld) [#/Vol] 0 10*3/uL Normal 0-5 [facility] Comment on above: Performed By: #### L 501.9985, L500.4100, L100.0100, L500.4050 #### [facility] [address] [place], [address] Platelet mean volume (Bld) [Entitic vol] 10.0 fL Normal 6.2-12.0 [facility] Comment on above: Performed By: #### L 501.9985, L500.4100, L100.0100, L500.4050 #### [facility] [address] [place], [address] Platelets (Bld) [#/Vol] 321 10*3/uL Normal 150-450 [facility] Comment on above: Performed By: #### L 501.9985, L500.4100, L100.0100, L500.4050 #### [facility] [address] [place], [address] RBC (Bld) [#/Vol] 4.64 10*6/uL Normal 4.2-5.4 [facility] Comment on above: Performed By: #### L 501.9985, L500.4100, L100.0100, L500.4050 #### [facility] [address] [place], [address] RDW SD 46.3 fl High 35.1-43.9 [facility] Comment on above: Performed By: #### L 501.9985, L500.4100, L100.0100, L500.4050 #### [facility] [address] [place], [place], [id number] WBC (Bld) [#/Vol] 7.3 10*3/uL Normal 4.4-11.0 [facility] Comment on above: Performed By: #### L 501.9985, L500.4100, L100.0100, L500.4050 #### [facility] [address] [place], [place], [id number] Calculated very low density lipoprotein (VLDL) cholesterol measurementOrdered By: Jess White on 06-29-2024 Calculated very low density lipoprotein (VLDL) cholesterol measurement 34 mg/dL [facility] VLDL Cholesterol 34 mg/dL [facility] Carbon dioxide, total [Moles /volume] in Central venous bloodOrdered By: Jess White on 06-29-2024 CO2 [Moles/Vol] 22.2 mmol/L 21.0-32.0 [facility] Chloride assayOrdered By: Lambert White on 06-29-2024 Chloride [Moles/Vol] 104 mmol/L 98-108 [facility] Comprehensive Metabolic Prof ilon 06-29-2024 Albumin [Mass/Vol] 4.3 g/dL Normal 3.5-5.0 [facility] Comment on above: Performed By: #### L 501.9985, L500.4100, L100.0100, L500.4050 #### [facility] [address] [place], [address] Albumin/Globulin [Mass ratio] 1.3 {ratio} Normal 0.9-2.4 [facility] Comment on above: Performed By: #### L 501.9985, L500.4100, L100.0100, L500.4050 #### [facility] [address] [place], [address] ALK PHOS 84 U/L Normal 35-104 [facility] Comment on above: Performed By: #### L 501.9985, L500.4100, L100.0100, L500.4050 #### [facility] [address] [place], [address] ALT [Catalytic activity/Vol] 24 U/L Normal <=34 [facility] Comment on above: Performed By: #### L 501.9985, L500.4100, L100.0100, L500.4050 #### [facility] [address] [place], [address] AST [Catalytic activity/Vol] 26 U/L Normal <=31 [facility] Comment on above: Performed By: #### L 501.9985, L500.4100, L100.0100, L500.4050 #### [facility] [address] [place], [address] Bilirubin [Mass/Vol] 0.26 mg/dL Normal 0.00-1.30 [facility] Comment on above: Performed By: #### L 501.9985, L500.4100, L100.0100, L500.4050 #### [facility] [address] [place], [address] BUN/CRE 15.3 RATIO Normal 10-20 [facility] Comment on above: Performed By: #### L 501.9985, L500.4100, L100.0100, L500.4050 #### [facility] [address] [place], [address] Calcium [Mass/Vol] 10.1 mg/dL Normal 7.6-11.0 [facility] Comment on above: Performed By: #### L 501.9985, L500.4100, L100.0100, L500.4050 #### [facility] [address] [place], [address] Chloride [Moles/Vol] 104 mmol/L Normal 98-108 [facility] Comment on above: Performed By: #### L 501.9985, L500.4100, L100.0100, L500.4050 #### [facility] [address] [place], [address] CO2 [Moles/Vol] 22.2 mmol/L Normal 21.0-32.0 [facility] Comment on above: Performed By: #### L 501.9985, L500.4100, L100.0100, L500.4050 #### [facility] [address] [place], [address] Creatinine [Mass/Vol] 0.67 mg/dL Low 0.70-1.20 [facility] Comment on above: Performed By: #### L 501.9985, L500.4100, L100.0100, L500.4050 #### [facility] [address] [place], [address] GAP 13 Normal 5-15 [facility] Comment on above: Performed By: #### L 501.9985, L500.4100, L100.0100, L500.4050 #### [facility] [address] [place], [address] GFR/1.73 sq M.predicted among non-blacks MDRD (S/P/Bld) [Vol rate/Area] 102 mL/min/{1.73_m2} Normal >60 [facility] Comment on above: Result Comment: mL/m in/1.73m2 CKD-EPI Creatinine Equation (2020) Performed By: #### L 501.9985, L500.4100, L100.0100, L500.4050 #### [facility] [address] [place], [address] Globulin (S) [Mass/Vol] 3.2 g/dL Normal 2.2-4.2 [facility] Comment on above: Performed By: #### L 501.9985, L500.4100, L100.0100, L500.4050 #### [facility] [address] [place], [address] Glucose [Mass/Vol] 103 mg/dL High 70-99 [facility] Comment on above: Performed By: #### L 501.9985, L500.4100, L100.0100, L500.4050 #### [facility] [address] [place], [address] Potassium [Moles/Vol] 4.0 mmol/L Normal 3.3-5.1 [facility] Comment on above: Performed By: #### L 501.9985, L500.4100, L100.0100, L500.4050 #### [facility] [address] [place], [address] Sodium [Moles/Vol] 140 mmol/L Normal 133-145 [facility] Comment on above: Performed By: #### L 501.9985, L500.4100, L100.0100, L500.4050 #### [facility] [address] [place], [address] T PROT 7.4 g/dL Normal 5.9-8.4 [facility] Comment on above: Performed By: #### L 501.9985, L500.4100, L100.0100, L500.4050 #### [facility] [address] [place], [address] Urea nitrogen [Mass/Vol] 10 mg/dL Normal 4-19 [facility] Comment on above: Performed By: #### L 501.9985, L500.4100, L100.0100, L500.4050 #### [facility] [address] [place], [place], [id number] Eosinophil percentageOrdered By: Jess White on 06-29-2024 Eosinophils/100 WBC (Bld) 4.8 % 0-5 [facility] Erythrocyte distribution wid th ratioOrdered By: samysanta feovidio White on 06-29-2024 Erythrocyte distribution width (RBC) [Ratio] 14.5 % 11.6-14.6 [facility] Erythrocyte distribution wid th standard deviationOrdered By: samysanta feovidio White on 06-29-2024 Erythrocyte distribution width (RBC) [Entitic vol] 46.3 fL High 35.1-43.9 [facility] Erythrocyte distribution width (RBC) [Ratio] 46.3 fl High 35.1-43.9 [facility] GFR/1.73 sq M.predicted ben g non-blacks MDRD (S/P/Bld) [Vol rate/Area]Ordered By: Jess White on 06-29-2024 Estimated GFR (MDRD) Non-Af Amer 102 >60 [facility] Comment on above: mL/min/1.73m2 CKD-EP I Creatinine Equation (2020) Glomerular filtration rate ( GFR) estimation/1.73 sq m using serum, plasma, or whole bOrdered By: Jess White on 06-29-2024 GFR/1.73 sq M.predicted among non-blacks MDRD (S/P/Bld) [Vol rate/Area] 102 mL/min/{1.73_m2} >60 [facility] Comment on above: mL/min/1.73m2 CKD-EP I Creatinine Equation (2020) Hematocrit Auto (Bld) [Volum e fraction]Ordered By: Jess White on 06-29-2024 Hematocrit (Bld) [Volume fraction] 40.5 % 37-47 [facility] Hemoglobin A1con 06-29-2024 HbA1c (Bld) [Mass fraction] 5.8 % Normal <=5.6 [facility] Comment on above: Performed By: #### L 501.6161, L500.4100, L100.0100, L500.4050 #### [facility] [address] [place], [place], [id number] Hemoglobin A1c percentageOrd ered By: Jess White on 06-29-2024 HbA1c (Bld) [Mass fraction] 5.8 % >5.7 [facility] Hemoglobin measurementOrdere d By: Jess White on 06-29-2024 Hemoglobin (Bld) [Mass/Vol] 13.0 g/dL 12.0-15.0 [facility] Immature granulocytes/100 WB C Auto (Bld)Ordered By: axel White on 06-29-2024 Immature granulocytes/100 WBC (Bld) 0.400 % 0.0-0.9 [facility] Comment on above: IG% - Immature Granu locytes (promyelocytes, myelocytes and metamyelocytes) > 1% indicates that a LEFT SHIFT is Present. LDL calc ser/plasOrdered By: Jess White on 06-29-2024 Cholesterol in LDL [Mass/Vol] 114 mg/dL [facility] Comment on above: Vctktkxyjm=208-368 m g/dL & Higher Ezyp=799 mg/dL or greater LDL Cholesterol, Calculated 114 mg/dL [facility] Comment on above: Ybsuwhmyui=955-254 m g/dL & Higher Popg=201 mg/dL or greater Laboratory - Chemistry and C hemistry - challengeOrdered By: Jess White on 06-29-2024 AST [Catalytic activity/Vol] 26 U/L <32 [facility] Lipid Profileon 06-29-2024 CHOL:HDL 3.72 Normal [facility] Comment on above: Performed By: #### L 501.9985, L500.4100, L100.0100, L500.4050 #### [facility] [address] [place], [place], [id number] Cholesterol [Mass/Vol] 202 mg/dL High <=200 [facility] Comment on above: Result Comment: Chol esterol level, Desirable <200 mg/dL Borderline high cholesterol 200-239 mg/dL High cholesterol >=240 mg/dL Recommendations of the NCEP Adult Treatment Panel for the following risk-cutoff thresholds for the [place] population. Performed By: #### L 501.9985, L500.4100, L100.0100, L500.4050 #### [facility] [address] [place], [address] Cholesterol in HDL [Mass/Vol] 54 mg/dL Normal [facility] Comment on above: Result Comment: Emmie onal Cholesterol Education Program (NCEP) guidelines: <40 mg/dL: Low HDL-cholesterol (major risk factor for CHD) >= 60 mg/dL: High HDL-cholesterol (negative risk factor for CHD) HDL-cholesterol is affected by a number of factors, e.g. smoking, exercise, hormones, sex and age. Performed By: #### L 501.9985, L500.4100, L100.0100, L500.4050 #### [facility] [address] [place], [address] Cholesterol in LDL [Mass/Vol] 114 mg/dL Normal [facility] Comment on above: Result Comment: Bord tirbii=934-922 mg/dL Higher Gpdk=493 mg/dL or greater Performed By: #### L 501.9985, L500.4100, L100.0100, L500.4050 #### [facility] [address] [place], [address] Cholesterol in VLDL [Mass/Vol] 34 mg/dL Normal 5-40 [facility] Comment on above: Performed By: #### L 501.9985, L500.4100, L100.0100, L500.4050 #### [facility] [address] [place], [address] Triglyceride [Mass/Vol] 171 mg/dL Normal [facility] Comment on above: Result Comment: The drugs N-Acetylcysteine and Metamizole may falsely depress this assay. Normal range: <150 mg/dL Borderline High: 150-199 mg/dL High: 200-499 mg/dL Very High: >500 mg/dL Performed By: #### L 501.9985, L500.4100, L100.0100, L500.4050 #### [facility] [address] [place], [address] Lymphocytes Auto (Unsp spec) [#/Vol]Ordered By: Jess White on 06-29-2024 Lymphocytes (Bld) [#/Vol] 1.91 10*3/uL 0.83-4.51 [facility] Lymphocytes/100 WBC Auto (Un sp spec)Ordered By: Jess White on 06-29-2024 Lymphocytes/100 WBC (Bld) 26.1 % 19-41 [facility] MCV (mean corpuscular volume ) determinationOrdered By: Jess White on 06-29-2024 MCV (RBC) [Entitic vol] 87.3 fL 81-99 [facility] Mean corpuscular hemoglobin (MCH) determinationOrdered By: Jess White on 06-29-2024 MCH (RBC) [Entitic mass] 28.0 pg 27.0-32.0 [facility] Mean corpuscular hemoglobin concentration (MCHC) determinationOrdered By: Jess White on 06-29-2024 MCHC (RBC) [Mass/Vol] 32.1 g/dL 32-36 [facility] Mean platelet volume determi nationOrdered By: Jess White on 06-29-2024 Platelet mean volume (Bld) [Entitic vol] 10.0 fL 6.2-12.0 [facility] Monocyte percentageOrdered B y: Jess White on 06-29-2024 Monocytes/100 WBC (Bld) 6.3 % 0-10 [facility] Neutrophil percentageOrdered By: Jess White on 06-29-2024 Neutrophils/100 WBC (Bld) 62.1 % 47-70 [facility] Nucleated red blood cell per centageOrdered By: Jess White on 06-29-2024 Nucleated RBC/100 WBC (Bld) [Ratio] 0 % 0-5 [facility] Platelet countOrdered By: Lambert White on 06-29-2024 Platelets (Bld) [#/Vol] 321 10*3/uL 150-450 [facility] Potassium (Unsp spec) [Mass/ Vol]Ordered By: Jess White on 06-29-2024 Potassium [Moles/Vol] 4.0 mmol/L 3.3-5.1 [facility] Potassium measurement (mass/ volume)Ordered By: Jess White on 06-29-2024 Potassium (Unsp spec) [Mass/Vol] 4.0 mmol/L 3.3-5.1 [facility] RBC Auto (Bld) [#/Vol]Ordere d By: Jess White on 06-29-2024 RBC (Bld) [#/Vol] 4.64 10*6/uL 4.2-5.4 [facility] Screening total cholesterol/ high density lipoprotein (HDL) cholesterol ratioOrdered By: Jess White on 06-29-2024 Cholesterol.total/Choles terol in HDL [Mass ratio] 3.72 {ratio} [facility] Serum creatinine measurement (mass/volume)Ordered By: Jess White on 06-29-2024 Creatinine [Mass/Vol] 0.67 mg/dL Low 0.70-1.20 [facility] Serum globulin measurementOr dered By: Jess White on 06-29-2024 Globulin (S) [Mass/Vol] 3.2 g/dL 2.2-4.2 [facility] Serum glucose measurement (m ass/volume)Ordered By: Jess White on 06-29-2024 Glucose [Mass/Vol] 103 mg/dL High 70-99 [facility] Serum or plasma alanine vazquez otransferase (ALT) measurementOrdered By: Jess White on 06-29-2024 ALT [Catalytic activity/Vol] 24 U/L <35 [facility] Serum or plasma albumin eveline urement (mass/volume)Ordered By: Jess White on 06-29-2024 Albumin [Mass/Vol] 4.3 g/dL 3.5-5.0 [facility] Serum or plasma albumin/glob ulin mass ratioOrdered By: Jess White on 06-29-2024 Albumin/Globulin [Mass ratio] 1.3 {ratio} 0.9-2.4 [facility] Serum or plasma alkaline bonny sphatase measurementOrdered By: Jess White on 06-29-2024 ALP [Catalytic activity/Vol] 84 U/L 35-104 [facility] Serum or plasma calcium eveline urement (mass/volume)Ordered By: Jess White on 06-29-2024 Calcium [Mass/Vol] 10.1 mg/dL 7.6-11.0 [facility] Serum or plasma cholesterol in HDL measurement (mass/volume)Ordered By: Jess White 06-29-2024 Cholesterol in HDL [Mass/Vol] 54 mg/dL >40 [facility] Comment on above: National Cholesterol Education Program (NCEP) guidelines:<40 mg/dL: Low HDL-cholesterol (major risk factor for CHD)>= 60 mg/dL: High HDL-cholesterol (negative risk factor for CHD)HDL-cholesterol is affected by a number of factors, e.g. smoking, exercise, hormones, sex and age. Serum or plasma cholesterol measurement (mass/volume)Ordered By: Jess White on 06-29-2024 Cholesterol [Mass/Vol] 202 mg/dL High <201 [facility] Comment on above: Cholesterol level, D esirable <200 mg/dLBorderline high cholesterol 200-239 mg/dLHigh cholesterol >=240 mg/dLRecommendations of the NCEP Adult Treatment Panel for the following risk-cutoff thresholds for the [place] population. Serum or plasma urea nitroge n measurement (mass/volume)Ordered By: Jess White on 06-29-2024 Urea nitrogen [Mass/Vol] 10 mg/dL 4-19 [facility] Sodium levelOrdered By: Toñito vasquezhaim Christopher on 06-29-2024 Sodium [Moles/Vol] 140 mmol/L 133-145 [facility] Total proteinOrdered By: Bashir White 06-29-2024 Protein [Mass/Vol] 7.4 g/dL 5.9-8.4 [facility] Triglycerides measurementOrd ered By: Jess White on 06-29-2024 Triglyceride [Mass/Vol] 171 mg/dL <199 [facility] Comment on above: The drugs N-Acetylcy steine and Metamizole may falsely depress this assay. Normal range: <150 mg/dLBorderline High: 150-199 mg/dLHigh: 200-499 mg/dLVery High: >500 mg/dL White blood cell (WBC) count Ordered By: Jess White on 06-29-2024 WBC (Bld) [#/Vol] 7.3 10*3/uL 4.4-11.0 [facility] Internal Medicine Office Vis itolala 04-01-2024 Internal Medicine Office Visit [facility] [address] [place] [address] [place] [address] OFFICE VISIT Date of Service: 04/01/24 MR#: [id number] Acct: [id number] Name: LINNEA FLYNN Rep #: [id number] : 1965 Provider: Dr. Jess alicia MD Age/Sex: 58/F [place] [facility] [place] Status: Signed Intake Vital Signs 12/25/23 14:28 03/02/24 07:47 04/01/24 10:54 Height 5 ft 4 in 5 ft 4 in 5 ft 4 in Weight: 234 lb BMI 40.1 BP 132/84 H Blood Pressure Location Lt brachial Position Sitting Respiration 16 Pulse 86 Pulse Source Monitor Temp 97.2 F L Temp Source Temporal Pulse Oximetry (%) 95 Oxygen Delivery Method room air Intake Visit Reasons: 3 M FU Chief Complaint: Follow-up chronic conditions. 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 Accompanied by: Self Is patient in pain?: Yes (back pain right lower ) Pain scale (1-10): 10 Allergies No Known Allergies Allergy (Verified 04/01/24 10:49) Medications ???Medication ???Instructions ???Recorded ???Confirmed ???Type omeprazole magnesium 20 mg 20 mg PO DAILY 02/18/19 04/01/24 History tablet,delayed release (Prilosec OTC) rhubarb root extract 4 mg tablet mg PO 09/12/19 04/01/24 History (Estroven Complete Menopause Relief) multivitamin with iron (Daily 1 tab PO DAILY 09/14/19 04/01/24 History Vitamin with Iron tablet) blood sugar diagnostic #50 ea 11/16/19 04/01/24 Rx iron-vitamin B complex with C 27 tab PO 02/15/20 04/01/24 History mg-300 mg tablet baclofen 10 mg tablet 10 mg PO BID PRN muscle spasm #180 11/29/21 04/01/24 Rx tabs meloxicam 15 mg tablet 15 mg PO DAILY PRN pain #30 tabs 08/17/23 04/01/24 Rx metformin 500 mg tablet,extended 500 mg PO BID #180 tabs 09/21/23 04/01/24 Rx release 24 hr potassium chloride 20 mEq 20 meq PO BID #180 tabs 10/09/23 04/01/24 Rx tablet,extended release fluoxetine 20 mg capsule (Prozac) 20 mg PO DAILY #90 caps 12/25/23 04/01/24 Rx fluoxetine 40 mg capsule See Rx Instructions .Route 12/25/23 04/01/24 Rx .COMPLEX #90 caps hydrocortisone 2.5 % topical cream 1 applic topical BID PRN rash 12/25/23 04/01/24 Rx #28.35 grams ergocalciferol (vitamin D2) 1,250 50,000 unit PO QWEEK #20 caps 12/28/23 04/01/24 Rx mcg (50,000 unit) capsule tirzepatide (weight loss) 2.5 2.5 mg (0.5 mL) subcut QWEEK #2 mL 12/28/23 04/01/24 Rx mg/0.5 mL subcutaneous pen injector (Zepbound) topiramate 100 mg tablet (Topamax) 100 mg PO BID #180 tabs 12/28/23 04/01/24 Rx hydrochlorothiazide 25 mg tablet 12.5 mg (1/2 x 25 mg) PO DAILY #90 02/15/24 04/01/24 Rx tabs PFSH Medical History Dermatitis Right elbow pain Hypokalemia URI (upper respiratory infection) Osteoarthritis of carpometacarpal joint of left thumb Pain of left thumb Musculoskeletal back pain Screening for thyroid disorder Vitamin D deficiency Health care maintenance Anxiety and depression Type 2 diabetes mellitus Flu vaccine need Post-viral cough syndrome COVID Back pain BMI 40.0-44.9, adult Other obesity due to excess calories Major depressive disorder Hypertension OSMIN (obstructive sleep apnea) Surgical History History of tonsillectomy History of hysterectomy History of cholecystectomy Family History Father Hypertension Diabetes Mother Hypertension Diabetes Myocardial infarction Lupus (systemic lupus erythematosus) Sister Diabetes Social History Smoking Status: Never smoker second hand exposure: No alcohol intake: never substance use type: does not use HPI HPI Chief Complaint: Follow-up chronic conditions. Details: LINNEA FLYNN, is a 58 F who presents to the office today for follow-up of her chronic conditions. She reports right sided lower back pain which started today. She states that she sat for long hours yesterday and believes that that precipitated the pain. No numbness or tingling down her extremities. Has taken some Aleve. Has a prescription for muscle relaxants but has not taken any. A1c today is at 6 down from 6.1. Has also lost 2 pounds since her last visit. Currently on metformin which she is taking as prescribed. No concerns for hypoglycemia. History of hypertension, blood pressure slightly elevated today however, she attributes it to her back pain. Currently on hydrochlorothiazide which she is taking as prescribed. No chest pain, palpitation or shortness of breath. ROS Const Constitutional: No body ache, chills, excessive sweating, fatigue, fever(s), frequent falls, headache(s), snoring, weakness or change in appetite Eyes Eyes: No blurry vision, change in vision, floaters, visual disturban (more content not included)... Normal [facility] Laboratory - Hematology and Cell countson 04-01-2024 HbA1c (Bld) [Mass fraction] 6.0 % 4.2-6.3 [facility] Pulmonary Visit Reporton Pulmonary Visit Report [facility] [address] [place], [place] [id number] OFFICE VISIT Date of Service: 03/02/24 MR#: [id number] Acct: [id number] Name: LINNEA FLYNN Rep #: [id number] : 1965 Provider: ERON Kaplan Age/Sex: 58/F [place] [facility] [place] Status: Signed Assessment and Plan Assessment and Plan (1) OSMIN (obstructive sleep apnea): Status: Chronic Plan: She is using and benefiting from Pap therapy. No indication for titration study at this time. It has been a long time since she had new supplies. I will send an order over to the DME to get replacement parts. Contact the office for any new or worsening symptoms in the meantime. Follow-up in 6 months to re-evaluate the compliance report and evaluate for continued day time tiredness. (2) Major depressive disorder: Status: Chronic Qualifiers: Major depression recurrence: unspecified whether recurrent Active/Remission status: remission status unspecified Qualified Code(s): F32.9 - Major depressive disorder, single episode, unspecified Plan: Complicates exam, plan, care and prognosis. Could be contributing to persistent day time tiredness. Anti-depressive medications side effects could also be contributing. (3) Obesity: Status: Chronic Qualifiers: Obesity type: due to excess calories Obesity classification: adult class 2 (BMI 35 - 39.9) Serious obesity comorbidity presence: with serious comorbidity Body mass index: BMI 39.0-39.9 Qualified Code(s): E66.812 - Obesity, class 2; E66.01 - Morbid (severe) obesity due to excess calories; Z68.39 - Body mass index [BMI] 39.0-39.9, adult Plan: Complicates exam, plan, care and prognosis. Continue to encourage healthy weight loss. Plan Details Follow Up: 6 Months (LMR) HPI Re-establish OSMIN Chief Complaint: Sleep apnea HPI Comments Details: This patient presents to the office today to reestablish care for her obstructive sleep apnea. She is ambulatory and currently on room air. She has not recently been seen in the ED or urgent care for any respiratory illness. She has not required any antibiotics or prednisone for breathing problems. She denies any difficulty with shortness of breath. She denies any cough, sputum production or hemoptysis. She denies any wheezing, chest tightness, chest pain or palpitations. The patient reports that she continues to experience persistent daytime hypersomnia. She is wondering if she should have a repeat sleep test. She admits, however, that she has never really felt rested with the use of her Pap device. Then as she goes on to think about the use of her PAP device, she notes that on occasion when she has an upper respiratory infection and cannot tolerate PAP therapy she notices that she feels less rested and more tired. She then states so I guess I must be feeling more rested when I use it. She is not requiring naps. She is not nodding off to sleep unintentionally. She does have occasional difficulty with dry mouth. She is not experiencing excessive nocturia. Compliance report for the past 30 days shows 100% compliance with average use of 8 hours and 39 minutes per night. Current setting is 18/14 cmH2O with residual AHI of 2.9 events per hour. Leaks do not appear to be problematic. 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 DME Vendor: pap- [employer] Accompanied by: Self Is patient in pain?: No Allergies No Known Allergies Allergy (Verified 03/02/24 14:47) Medications ???Medication ???Instructions ???Recorded ???Confirmed ???Type omeprazole magnesium 20 mg 20 mg PO DAILY 02/18/19 03/02/24 History tablet,delayed release (Prilosec OTC) rhubarb root extract 4 mg tablet mg PO 09/12/19 03/02/24 History (Estroven Complete Menopause Relief) multivitamin with iron (Daily 1 tab PO DAILY 09/14/19 03/02/24 History Vitamin with Iron tablet) blood sugar diagnostic #50 ea 08/12/20 11/27/24 Rx iron-vitamin B complex with C 27 tab PO 02/15/20 03/02/24 History mg-300 mg tablet baclofen 10 mg tablet 10 mg PO BID PRN muscle spasm #180 11/29/21 03/02/24 Rx tabs meloxicam 15 mg tablet 15 mg PO DAILY PRN pain #30 tabs 08/17/23 03/02/24 Rx metformin 500 mg tablet,extended 500 mg PO BID #180 tabs 09/21/23 03/02/24 Rx release 24 hr potassium chloride 20 mEq 20 meq PO BID #180 tabs 07 (more content not included)... Normal [facility] Internal Medicine Office Vis iton 12-25-2023 Internal Medicine Office Visit [facility] [address] [place] [address] [place] [address] OFFICE VISIT Date of Service: 12/25/23 MR#: [id number] Acct: [id number] Name: LINNEA FLYNN Rep #: [id number] : 1965 Provider: Dr. Jess alicia MD Age/Sex: 58/F [place] [facility] [place] Status: Signed Intake Vital Signs 09/18/23 15:08 12/25/23 14:28 Height 5 ft 4 in 5 ft 4 in Weight: 236 lb 2 oz BMI 40.5 BP 126/74 H Blood Pressure Location Lt brachial Position Sitting Respiration 16 Pulse 73 Pulse Source Monitor Temp 99.0 F Temp Source Temporal Pulse Oximetry (%) 97 Oxygen Delivery Method room air Intake Visit Reasons: 3 M FU Chief Complaint: Follow-up chronic conditions. 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 Accompanied by: Self Is patient in pain?: No Allergies No Known Allergies Allergy (Verified 12/25/23 14:25) Medications ???Medication ???Instructions ???Recorded ???Confirmed ???Type omeprazole magnesium 20 mg 20 mg PO DAILY 02/18/19 12/25/23 History tablet,delayed release (Prilosec OTC) rhubarb root extract 4 mg tablet mg PO 09/12/19 12/25/23 History (Estroven Complete Menopause Relief) multivitamin with iron (Daily 1 tab PO DAILY 09/14/19 12/25/23 History Vitamin with Iron tablet) blood sugar diagnostic #50 ea 11/16/19 12/25/23 Rx iron-vitamin B complex with C 27 tab PO 02/15/20 12/25/23 History mg-300 mg tablet baclofen 10 mg tablet 10 mg PO BID PRN muscle spasm #180 11/29/21 12/25/23 Rx tabs topiramate 100 mg tablet (Topamax) 100 mg PO BID #180 tabs 04/15/22 12/25/23 Rx hydrochlorothiazide 25 mg tablet 12.5 mg (1/2 x 25 mg) PO DAILY #90 09/08/22 12/25/23 Rx tabs ergocalciferol (vitamin D2) 1,250 50,000 unit PO QWEEK #20 caps 02/23/23 12/25/23 Rx mcg (50,000 unit) capsule fluoxetine 40 mg capsule See Rx Instructions .Route 03/19/23 12/25/23 Rx .COMPLEX #90 caps fluoxetine 20 mg capsule (Prozac) 20 mg PO DAILY #90 caps 04/02/23 12/25/23 Rx meloxicam 15 mg tablet 15 mg PO DAILY PRN pain #30 tabs 08/17/23 12/25/23 Rx metformin 500 mg tablet,extended 500 mg PO BID #180 tabs 09/21/23 12/25/23 Rx release 24 hr potassium chloride 20 mEq 20 meq PO BID #180 tabs 10/09/23 12/25/23 Rx tablet,extended release hydrocortisone 2.5 % topical cream 1 applic topical BID PRN rash 12/25/23 12/25/23 Rx #28.35 grams [facility] Medical History (Updated 12/25/23 @ 16:[address] Jess White MD) Dermatitis Right elbow pain Hypokalemia URI (upper respiratory infection) Osteoarthritis of carpometacarpal joint of left thumb Pain of left thumb Musculoskeletal back pain Screening for thyroid disorder Vitamin D deficiency Health care maintenance Anxiety and depression Type 2 diabetes mellitus Flu vaccine need Post-viral cough syndrome COVID Back pain BMI 40.0-44.9, adult Other obesity due to excess calories Major depressive disorder Hypertension OSMIN (obstructive sleep apnea) Surgical History History of tonsillectomy History of hysterectomy History of cholecystectomy Family History Father Hypertension Diabetes Mother Hypertension Diabetes Myocardial infarction Lupus (systemic lupus erythematosus) Sister Diabetes Social History Smoking Status: Never smoker second hand exposure: No alcohol intake: never substance use type: does not use HPI HPI Chief Complaint: Follow-up chronic conditions. Details: LINNEA FLYNN, is a 58 F who presents to the office today for follow-up of her chronic medical conditions. Also has some concerns. She reports a rash on her right breast/chest area which has been present for a month. No known precipitating factor. Does not itch. No similar presentation in the past. Has not tried anything [id number] History of type 2 diabetes mellitus, currently on metformin. Had done really well on GLP-1 however due to cost, has not been on it recently. A1c today is at 6.1 up from 6. Currently at a BMI of 40.5. Other chronic medical conditions are stable. She would like a flu shot. ROS Const Constitutional: No body ache, chills, excessive sweating, fatigue, fever(s), frequent falls, headache(s), snoring, weakness or change in appetite Eyes Eyes: No blurry vision, change in vision, bulging eyes, floaters, visual disturbances, eye pain or Light sensitivity ENT ENT: No abnormal hearing, ear or mastoid pain, tinnitus, balance problems, nosebleed/epistaxis, nasal congestion, headache(s), neck pain or sore throat Resp Respiratory: No cough, excessive phlegm production, pain on inspiration, shortness of breath, snoring or wheezing Cardio Cardiology: No chest pain at res (more content not included)... Normal [facility] SCRN MAMM (CAD)W/ANAIS BILATo n 10-09-2023 SCRN MAMM (CAD)W/ANAIS BILAT [facility] Imaging Services [address] [place] [address] SCRN MAMM (CAD)W/ANAIS BILAT MR#: [id number] Acct: [id number] Name: LINNEA FLYNN Rep #: [id number] : 1965 F 58 From: Diego Ann MD PCP: Dr. Jess White MD Status: REG CLI Study: SCRN MAMM (CAD)W/ANAIS BILAT Date of Exam: 08/27 Exam# [id number] Ordering Dr: Jess White MD [id number] MAMMOGRAPHY - BILATERAL SCREENING 3-D TOMOSYNTHESIS REASON FOR EXAM: Female, 58 years old. Breast cancer screening PERTINENT HISTORY: No significant family history. TECHNIQUE: 2-D mammograms and 3-D Tomosynthesis of the breast (s) were performed. CAD was performed. COMPARISON: 09/09/2022 FINDINGS: The breast composition is composed of scattered fibroglandular density. Scattered benign calcifications are seen. No dense spiculated masses or suspicious microcalcifications are identified. No architectural distortion is identified. There is no skin thickening or retraction. There has been no significant change since the prior study. BI/SCRN MAMM (CAD)W/ANAIS BILAT IMPRESSION: No mammographic signs of malignancy. Routine yearly mammograms recommended. ASSESSMENT CATEGORY: BIRADS Category 1: Negative. A letter regarding these results will be sent to the patient by the facility within 30 days. FOLLOW UP RECOMMENDATION: Yearly follow up mammogram recommended. (A) Approximately 10% of breast cancers are not detected by mammography. A normal mammogram should not delay biopsy of a clinically suspicious abnormality. Electronically Signed: Diego Ann MD at 8:32 EDT , CC: Dr. Jess White MD Construction Engineer: Signed Normal [facility] Basophil percentageOrdered B y: Jess White on 06-24-2023 Potassium [Moles/Vol] 3.8 mmol/L 3.5-5.1 [facility] Absolute lymphocyte countOrd ered By: Jess White on 06-10-2023 Lymphocytes Auto (Unsp spec) [#/Vol] 2.39 10*3/uL 0.83-4.51 [facility] Automated lymphocyte count a s percentage of total leukocytesOrdered By: Jess White on 06-10-2023 Lymphocytes/100 WBC Auto (Unsp spec) 28.2 % 19-41 [facility] Basophil percentageOrdered B y: Jess White on 06-10-2023 Basophils/100 WBC (Bld) 0.5 % 0-1 [facility] Bilirubin [Mass/Vol] 0.30 mg/dL 0.20-1.00 [facility] Comment on above: For patients on eltr ombopag therapy, use of Dimension [employer] TBIL is not recommended. Chloride [Moles/Vol] 108 mmol/L 98-107 [facility] Cholesterol [Mass/Vol] 136 mg/dL <200 [facility] Comment on above: <200 mg/dL Desirable 200-240 mg/dL Borderline >240 mg/dL High Risk Eosinophils/100 WBC (Bld) 1.1 % 0-5 [facility] Glucose [Mass/Vol] 115 mg/dL 74-106 [facility] Comment on above: Fasting Glucose resu lt from 100 to 125 mg/dL suggests IMPAIRED HOMEOSTASIS per A.D.A. criteria. Hemoglobin (Bld) [Mass/Vol] 12.4 g/dL 12.0-15.0 [facility] Monocytes/100 WBC (Bld) 4.0 % 0-10 [facility] Neutrophils (Bld) [#/Vol] 5.6 10*3/uL 2.0-7.7 [facility] Neutrophils/100 WBC (Bld) 66.0 % 47-70 [facility] Potassium [Moles/Vol] 3.0 mmol/L 3.5-5.1 [facility] Protein [Mass/Vol] 7.5 g/dL 6.4-8.2 [facility] Sodium [Moles/Vol] 140 mmol/L 136-145 [facility] Triglyceride [Mass/Vol] 151 mg/dL <199 [facility] Comment on above: The drugs N-Acetylcy steine and Metamizole may falsely depress this assay.Serum Triglycerides Reference Interval Normal <150 mg/dL Borderline high 150 - 199 mg/dL High 200 - 499 mg/dL Very High > or = 500 mg/dL WBC (Bld) [#/Vol] 8.5 10*3/uL 4.4-11.0 [facility] Determination of erythrocyte mean corpuscular volume (MCV)Ordered By: Jess White on 06-10-2023 MCV (RBC) [Entitic vol] 85.7 fL 81-99 [facility] Erythrocyte distribution wid th ratioOrdered By: [facility] Angelobryan on 06-10-2023 Erythrocyte distribution width (RBC) [Ratio] 14.2 % 11.6-14.6 [facility] Erythrocyte distribution wid th standard deviationOrdered By: [facility] Angelobryan on 06-10-2023 Erythrocyte distribution width (RBC) [Entitic vol] 44.2 fL 35.1-43.9 [facility] Hematocrit Auto (Bld) [Volum e fraction]Ordered By: [facility] on 06-10-2023 Hematocrit (Bld) [Volume fraction] 39.1 % 37-47 [facility] Immature granulocytes/100 WB C Auto (Bld)Ordered By: [facility] Angelobryan on 06-10-2023 Immature granulocytes/100 WBC (Bld) 0.200 % 0.0-0.9 [facility] Comment on above: IG% - Immature Granu locytes (promyelocytes, myelocytes and metamyelocytes) > 1% indicates that a LEFT SHIFT is Present. Laboratory - Chemistry and C hemistry - challengeOrdered By: [facility] on 06-10-2023 Albumin/Globulin [Mass ratio] 0.9 {ratio} 0.9-2.4 [facility] ALP [Catalytic activity/Vol] 87 U/L 45-117 [facility] ALT [Catalytic activity/Vol] 34 U/L 13-56 [facility] Cholesterol in HDL [Mass/Vol] 44 mg/dL >40 [facility] Comment on above: The drugs N-Acetylcy steine and Metamizole may falsely depress this assay. Reference Range HDL <40 mg/dL Low HDL Cholesterol HDL >or= 60 mg/dL High HDL Cholesterol Cholesterol in LDL [Mass/Vol] 62 mg/dL 0-130 [facility] CO2 [Moles/Vol] 26.0 mmol/L 21.0-32.0 [facility] Globulin (S) [Mass/Vol] 4.0 g/dL 2.2-4.2 [facility] Urea nitrogen/Creatinine [Mass ratio] 15.3 mg/mg 10-20 [facility] Laboratory - Hematology and Cell countsOrdered By: Jess White on 06-10-2023 MCH (RBC) [Entitic mass] 27.2 pg 27.0-32.0 [facility] MCHC (RBC) [Mass/Vol] 31.7 g/dL 32-36 [facility] Nucleated RBC/100 WBC (Bld) [Ratio] 0 % 0-5 [facility] Platelet mean volume (Bld) [Entitic vol] 9.7 fL 6.2-12.0 [facility] Platelets (Bld) [#/Vol] 323 10*3/uL 150-450 [facility] No Panel InformationOrdered By: Jess White on 06-10-2023 Estimated GFR (MDRD) Amer 108 mL/min >60 [facility] Comment on above: GFR Calc Estimated GFR (MDRD) Non-Af Amer 89 mL/min >60 [facility] Comment on above: Non- GFR Calc VLDL Cholesterol 30 mg/dL 5-40 [facility] RBC Auto (Bld) [#/Vol]Ordere d By: Jses White on 06-10-2023 RBC (Bld) [#/Vol] 4.56 10*6/uL 4.2-5.4 [facility] Serum or plasma calcium eveline urement (mass/volume)Ordered By: Jess White on 06-10-2023 Calcium [Mass/Vol] 9.3 mg/dL 8.5-10.1 [facility] Serum or plasma creatinine m easurement (mass/volume)Ordered By: Jess White on 06-10-2023 Creatinine [Mass/Vol] 0.72 mg/dL 0.55-1.02 [facility] Comment on above: The validity of the calculated GFR & GFRAA in patients over 70 years has not been determined. Clinical correlation is essential. Serum or plasma urea nitroge n measurement (mass/volume)Ordered By: Jess White on 06-10-2023 Urea nitrogen [Mass/Vol] 11 mg/dL 7-18 [facility] Thin prep Papanicolaou smear with manual screeningOrdered By: Jess Wihte on 06-10-2023 Thin prep Papanicolaou smear with manual screening 3.5 g/dL 3.2-5.0 [facility] Thin prep Papanicolaou smear with manual screening 20 U/L 15-37 [facility] Thin prep Papanicolaou smear with manual screening 6 5-15 [facility] Whole blood hemoglobin A1c/t otal hemoglobin ratio (mass fraction)Ordered By: Jess White on 06-10-2023 HbA1c (Bld) [Mass fraction] 5.8 % 3.8-5.6 [facility] Comment on above: Normal < 5.7 % Predi abetic 5.7 - 6.4 % Diabetic >or= 6.5 % Please note range changes. Laboratory - Hematology and Cell countson 02-20-2023 HbA1c (Bld) [Mass fraction] 6.1 % 4.2-6.3 [facility] Basophil percentageOrdered B y: Jess White on 11-14-2022 Chloride [Moles/Vol] 107 mmol/L 98-107 [facility] Glucose [Mass/Vol] 111 mg/dL 74-106 [facility] Comment on above: Fasting Glucose resu lt from 100 to 125 mg/dL suggests IMPAIRED HOMEOSTASIS per A.D.A. criteria. Potassium [Moles/Vol] 3.6 mmol/L 3.5-5.1 [facility] Sodium [Moles/Vol] 140 mmol/L 136-145 [facility] Laboratory - Chemistry and C hemistry - challengeOrdered By: Jess White on 11-14-2022 CO2 [Moles/Vol] 26.0 mmol/L 21.0-32.0 [facility] Urea nitrogen/Creatinine [Mass ratio] 17.1 mg/mg 10-20 [facility] Laboratory - Hematology and Cell countson 11-14-2022 HbA1c (Bld) [Mass fraction] 6.2 % 4.2-6.3 [facility] No Panel InformationOrdered By: Jess White on 11-14-2022 Estimated GFR (MDRD) Amer 111 mL/min >60 [facility] Comment on above: GFR Calc Estimated GFR (MDRD) Non-Af Amer 92 mL/min >60 [facility] Comment on above: Non- GFR Calc Serum or plasma calcium eveline urement (mass/volume)Ordered By: Jess White on 11-14-2022 Calcium [Mass/Vol] 9.1 mg/dL 8.5-10.1 [facility] Serum or plasma creatinine m easurement (mass/volume)Ordered By: Jess White on 11-14-2022 Creatinine [Mass/Vol] 0.70 mg/dL 0.55-1.02 [facility] Comment on above: The validity of the calculated GFR & GFRAA in patients over 70 years has not been determined. Clinical correlation is essential. Serum or plasma urea nitroge n measurement (mass/volume)Ordered By: Jess White on 11-14-2022 Urea nitrogen [Mass/Vol] 12 mg/dL 10-21 [facility] Thin prep Papanicolaou smear with manual screeningOrdered By: Jess White on 11-14-2022 Thin prep Papanicolaou smear with manual screening 7 - [facility] Absolute lymphocyte countOrd ered By: Dr. White on 07-23-2022 Lymphocytes Auto (Unsp spec) [#/Vol] 2.28 10*3/uL 0.83-4.51 [facility] Basophil percentageOrdered B y: Dr. White on 07-23-2022 Basophils/100 WBC (Bld) 0.4 % 0-1 [facility] Bilirubin [Mass/Vol] 0.20 mg/dL 0.20-1.00 [facility] Comment on above: For patients on eltr ombopag therapy, use of [employer] TBIL is not recommended. Chloride [Moles/Vol] 106 mmol/L 98-107 [facility] Cholesterol [Mass/Vol] 178 mg/dL <200 [facility] Comment on above: <200 mg/dL Desirable 200-240 mg/dL Borderline >240 mg/dL High Risk Eosinophils/100 WBC (Bld) 1.0 % 0-5 [facility] Glucose [Mass/Vol] 103 mg/dL 74-106 [facility] Comment on above: Fasting Glucose resu lt from 100 to 125 mg/dL suggests IMPAIRED HOMEOSTASIS per A.D.A. criteria. Neutrophils (Bld) [#/Vol] 6.2 10*3/uL 2.0-7.7 [facility] Neutrophils/100 WBC (Bld) 68.2 % 47-70 [facility] Potassium [Moles/Vol] 3.3 mmol/L 3.5-5.1 [facility] Protein [Mass/Vol] 7.7 g/dL 6.4-8.2 [facility] Sodium [Moles/Vol] 136 mmol/L 136-145 [facility] Triglyceride [Mass/Vol] 168 mg/dL <199 [facility] Comment on above: The drugs N-Acetylcy steine and Metamizole may falsely depress this assay.Serum Triglycerides Reference Interval Normal <150 mg/dL Borderline high 150 - 199 mg/dL High 200 - 499 mg/dL Very High > or = 500 mg/dL WBC (Bld) [#/Vol] 9.2 10*3/uL 4.4-11.0 [facility] Blood erythrocytes count (nu mber/volume)Ordered By: Dr. White on 07-23-2022 RBC (Bld) [#/Vol] 4.37 10*6/uL 4.2-5.4 [facility] Blood hemoglobin measurement (mass/volume)Ordered By: Dr. White on 07-23-2022 Hemoglobin (Bld) [Mass/Vol] 12.2 g/dL 12.0-15.0 [facility] Blood lymphocytes/100 leukoc ytesOrdered By: Dr. White on 07-23-2022 Lymphocytes/100 WBC (Bld) 24.9 % 19-41 [facility] Blood monocytes/100 leukocyt esOrdered By: Dr. White on 07-23-2022 Monocytes/100 WBC (Bld) 5.1 % 0-10 [facility] Blood platelet mean volumeOr dered By: Dr. White on 07-23-2022 Platelet mean volume (Bld) [Entitic vol] 10.1 fL 6.2-12.0 [facility] Determination of erythrocyte mean corpuscular volume (MCV)Ordered By: Dr. White on 07-23-2022 MCV (RBC) [Entitic vol] 90.6 fL 81-99 [facility] Hematocrit Auto (Bld) [Volum e fraction]Ordered By: Dr. White on 07-23-2022 Hematocrit (Bld) [Volume fraction] 39.6 % 37-47 [facility] Laboratory - Chemistry and C hemistry - challengeOrdered By: Dr. White on 07-23-2022 ALP [Catalytic activity/Vol] 89 U/L 45-117 [facility] ALT [Catalytic activity/Vol] 37 U/L 13-56 [facility] CO2 [Moles/Vol] 26.0 mmol/L 21.0-32.0 [facility] Globulin (S) [Mass/Vol] 3.9 g/dL 2.2-4.2 [facility] Urea nitrogen/Creatinine [Mass ratio] 14.6 mg/mg 10-20 [facility] Laboratory - Hematology and Cell countsOrdered By: Dr. White on 07-23-2022 Erythrocyte distribution width (RBC) [Entitic vol] 48.6 fL 35.1-43.9 [facility] Erythrocyte distribution width (RBC) [Ratio] 14.6 % 11.6-14.6 [facility] Immature granulocytes/100 WBC (Bld) 0.400 % 0.0-0.9 [facility] Comment on above: IG% - Immature Granu locytes (promyelocytes, myelocytes and metamyelocytes) > 1% indicates that a LEFT SHIFT is Present. MCH (RBC) [Entitic mass] 27.9 pg 27.0-32.0 [facility] Nucleated RBC/100 WBC (Bld) [Ratio] 0 % 0-5 [facility] MCHC Auto (RBC) [Mass/Vol]Or dered By: Dr. White on 07-23-2022 MCHC (RBC) [Mass/Vol] 30.8 g/dL 32-36 [facility] No Panel InformationOrdered By: Dr. White on 07-23-2022 Urine Microalbumin/Creatinine Ratio TNP [facility] Comment on above: Test not performed Estimated GFR (MDRD) Amer 130 mL/min >60 [facility] Comment on above: GFR Calc Estimated GFR (MDRD) Non-Af Amer 107 mL/min >60 [facility] Comment on above: Non- GFR Calc Platelets bldOrdered By: Dr. White on 07-23-2022 Platelets (Bld) [#/Vol] 340 10*3/uL 150-450 [facility] Serum or plasma albumin eveline urement (mass/volume)Ordered By: Dr. White on 07-23-2022 Albumin [Mass/Vol] 3.8 g/dL 3.2-5.0 [facility] Serum or plasma albumin/glob ulin mass ratioOrdered By: Dr. White on 07-23-2022 Albumin/Globulin [Mass ratio] 1.0 {ratio} 0.9-2.4 [facility] Serum or plasma calcium eveline urement (mass/volume)Ordered By: Dr. White on 07-23-2022 Calcium [Mass/Vol] 9.3 mg/dL 8.5-10.1 [facility] Serum or plasma cholesterol in HDL measurement (mass/volume)Ordered By: Dr. White on 07-23-2022 Cholesterol in HDL [Mass/Vol] 47 mg/dL >40 [facility] Comment on above: The drugs N-Acetylcy steine and Metamizole may falsely depress this assay. Reference Range HDL <40 mg/dL Low HDL Cholesterol HDL >or= 60 mg/dL High HDL Cholesterol Serum or plasma cholesterol in VLDL measurement (mass/volume)Ordered By: Dr. White on 07-23-2022 Cholesterol in VLDL [Mass/Vol] 34 mg/dL 5-40 [facility] Serum or plasma creatinine m easurement (mass/volume)Ordered By: Dr. White on 07-23-2022 Creatinine [Mass/Vol] 0.62 mg/dL 0.55-1.02 [facility] Comment on above: The validity of the calculated GFR & GFRAA in patients over 70 years has not been determined. Clinical correlation is essential. Serum or plasma low density lipoprotein (LDL) cholesterol measurement (mass/volume)Ordered By: Dr. White on 07-23-2022 Cholesterol in LDL [Mass/Vol] 97 mg/dL 0-130 [facility] Serum or plasma urea nitroge n measurement (mass/volume)Ordered By: Dr. White on 07-23-2022 Urea nitrogen [Mass/Vol] 9 mg/dL 7-18 [facility] Thin prep Papanicolaou smear with manual screeningOrdered By: Dr. White on 07-23-2022 Thin prep Papanicolaou smear with manual screening < 5.0 mg/L NO RANGE EST. [facility] Thin prep Papanicolaou smear with manual screening 31 U/L 15-37 [facility] Thin prep Papanicolaou smear with manual screening 4 5-15 [facility] Urine creatinine measurement (mass/volume)Ordered By: Dr. White on 07-23-2022 Creatinine (U) [Mass/Vol] 70.10 mg/dL NO RANGE EST. [facility] Laboratory - Microbiology an d Antimicrobial susceptibilityOrdered By: Sarah Brand on 04-10-2022 SARS-CoV-2 (COVID-19) RNA ALBERTO+probe Ql (Unsp spec) Not detected Not Detect [facility] Comment on above: Normal Reference Ran ge: Not DetectedMethod:(RT-PCR) real-time reverse transcriptase PCRLuminex DORITA Instrument*The Food and Drug Administration (FDA) has issued an Emergency Use Authorization (EAU) for the DORITA SARS-CoV-2 Assay for the rapid detection of the virus that causes COVID-19. This test has been validated, but the FDAs independent review of this validation is pending.*Negative results do not preclude infection and should not be used as the sole basis for treatment or patient management. Optimum specimen types and timing for peak viral levels during infections caused by SARS-CoV-2 have not been determined. Collection of multiple specimens from the same patient may be necessary to detect the virus. The possibility of a false negative result should be considered if the patient has clinical presentation or has had recent exposure. No Panel Informationon 04-10 Influenza Types A,B Rapid (Clinic) Negative [facility] Basophil percentageon 2021 Bilirubin [Mass/Vol] 0.20 mg/dL 0.20-1.00 [facility] Work Phone: Comment on above: For patients on eltr ombopag therapy, use of [employer] TBIL is not recommended. Chloride [Moles/Vol] 108 mmol/L 98-107 [facility] Work Phone: Glucose [Mass/Vol] 117 mg/dL 74-106 [facility] Work Phone: Comment on above: Fasting Glucose resu lt from 100 to 125 mg/dL suggests IMPAIRED HOMEOSTASIS per A.D.A. criteria. Potassium [Moles/Vol] 3.5 mmol/L 3.5-5.1 [facility] Work Phone: Protein [Mass/Vol] 7.5 g/dL 6.4-8.2 [facility] Work Phone: Sodium [Moles/Vol] 141 mmol/L 136-145 [facility] Work Phone: [phone] Laboratory - Chemistry and C hemistry - challengeon 11-29-2021 ALP [Catalytic activity/Vol] 90 U/L 45-117 [facility] Work Phone: ALT [Catalytic activity/Vol] 49 U/L 13-56 [facility] Work Phone: CO2 [Moles/Vol] 24.0 mmol/L 21.0-32.0 [facility] Work Phone: Cobalamin (Vitamin B12) [Mass/Vol] 552 pg/mL 211-911 [facility] Work Phone: Free T4 [Mass/Vol] 0.85 ng/dL 0.76-1.46 [facility] Work Phone: Globulin (S) [Mass/Vol] 3.8 g/dL 2.2-4.2 [facility] Work Phone: Urea nitrogen/Creatinine [Mass ratio] 15.6 mg/mg 10-20 [facility] Work Phone: Laboratory - Hematology and Cell countson 11-29-2021 HbA1c (Bld) [Mass fraction] 6.2 % 4.2-6.3 [facility] Work Phone: No Panel Informationon 11-29 Estimated GFR (MDRD) Amer 101 mL/min >60 [facility] Work Phone: Comment on above: GFR Calc Estimated GFR (MDRD) Non-Af Amer 83 mL/min >60 [facility] Work Phone: Comment on above: Non- GFR Calc Thyroid Stimulating Hormone (TSH) 1.09 uIU/mL 0.358-3.74 [facility] Work Phone: Vitamin D 25-Hydroxy 52.9 ng/mL [facility] Work Phone: Comment on above: Vitamin D 25(OH) Sta tus Range Deficiency <20 ng/mL (50nmol/L) Insufficiency 20 - 30 ng/mL (50 - 75 nmol/L) Sufficiency 30 - 100 ng/mL (75 - 250 nmol/L) Toxicity >100 ng/mL (>250 nmol/L) Serum or plasma albumin eveline urement (mass/volume)on 11-29-2021 Albumin [Mass/Vol] 3.7 g/dL 3.2-5.0 [facility] Work Phone: Serum or plasma albumin/glob ulin mass ratioon 11-29-2021 Albumin/Globulin [Mass ratio] 1.0 {ratio} 0.9-2.4 [facility] Work Phone: Serum or plasma calcium eveline urement (mass/volume)on 11-29-2021 Calcium [Mass/Vol] 8.7 mg/dL 8.5-10.1 [facility] Work Phone: Serum or plasma creatinine m easurement (mass/volume)on 11-29-2021 Creatinine [Mass/Vol] 0.77 mg/dL 0.55-1.02 [facility] Work Phone: Comment on above: The validity of the calculated GFR & GFRAA in patients over 70 years has not been determined. Clinical correlation is essential. Serum or plasma urea nitroge n measurement (mass/volume)on 11-29-2021 Urea nitrogen [Mass/Vol] 12 mg/dL 7-18 [facility] Work Phone: Thin prep Papanicolaou smear with manual screeningon 11-29-2021 Thin prep Papanicolaou smear with manual screening 32 U/L 15-37 [facility] Work Phone: Thin prep Papanicolaou smear with manual screening 9 5-15 [facility] Work Phone: Absolute lymphocyte counton 08-23-2021 Lymphocytes Auto (Unsp spec) [#/Vol] 2.12 10*3/uL 0.83-4.51 [facility] Work Phone: Basophil percentageon 2021 Basophils/100 WBC (Bld) 0.3 % 0-1 [facility] Work Phone: [phone] Cholesterol [Mass/Vol] 192 mg/dL <200 [facility] Work Phone: Comment on above: <200 mg/dL Desirable 200-240 mg/dL Borderline >240 mg/dL High Risk Eosinophils/100 WBC (Bld) 5.4 % 0-5 [facility] Work Phone: Neutrophils (Bld) [#/Vol] 6.0 10*3/uL 2.0-7.7 [facility] Work Phone: [phone] Neutrophils/100 WBC (Bld) 66.2 % 47-70 [facility] Work Phone: [phone] Triglyceride [Mass/Vol] 180 mg/dL <199 [facility] Work Phone: Comment on above: The drugs N-Acetylcy steine and Metamizole may falsely depress this assay.Serum Triglycerides Reference Interval Normal <150 mg/dL Borderline high 150 - 199 mg/dL High 200 - 499 mg/dL Very High > or = 500 mg/dL WBC (Bld) [#/Vol] 9.0 10*3/uL 4.4-11.0 [facility] Work Phone: Blood erythrocytes count (nu mber/volume)on 08-23-2021 RBC (Bld) [#/Vol] 4.43 10*6/uL 4.2-5.4 [facility] Work Phone: Blood hemoglobin measurement (mass/volume)on 08-23-2021 Hemoglobin (Bld) [Mass/Vol] 12.4 g/dL 12.0-15.0 [facility] Work Phone: [phone] Blood lymphocytes/100 leukoc yteson 08-23-2021 Lymphocytes/100 WBC (Bld) 23.5 % 19-41 [facility] Work Phone: [phone] Blood monocytes/100 leukocyt eson 08-23-2021 Monocytes/100 WBC (Bld) 4.3 % 0-10 [facility] Work Phone: [phone] Blood platelet mean volumeon 08-23-2021 Platelet mean volume (Bld) [Entitic vol] 9.9 fL 6.2-12.0 [facility] Work Phone: [phone] Determination of erythrocyte mean corpuscular volume (MCV)on 08-23-2021 MCV (RBC) [Entitic vol] 88.0 fL 81-99 [facility] Work Phone: [phone] Hematocrit Auto (Bld) [Volum e fraction]on 08-23-2021 Hematocrit (Bld) [Volume fraction] 39.0 % 37-47 [facility] Work Phone: Laboratory - Hematology and Cell countson 08-23-2021 Erythrocyte distribution width (RBC) [Entitic vol] 46.0 fL 35.1-43.9 [facility] Work Phone: [phone] Erythrocyte distribution width (RBC) [Ratio] 14.3 % 11.6-14.6 [facility] Work Phone: [phone] Immature granulocytes/100 WBC (Bld) 0.300 % 0.0-0.9 [facility] Work Phone: [phone] Comment on above: IG% - Immature Granu locytes (promyelocytes, myelocytes and metamyelocytes) > 1% indicates that a LEFT SHIFT is Present. MCH (RBC) [Entitic mass] 28.0 pg 27.0-32.0 [facility] Work Phone: Nucleated RBC/100 WBC (Bld) [Ratio] 0 % 0-5 [facility] Work Phone: [phone] HbA1c (Bld) [Mass fraction] 6.3 % 4.2-6.3 [facility] Work Phone: [phone] MCHC Auto (RBC) [Mass/Vol]on 08-23-2021 MCHC (RBC) [Mass/Vol] 31.8 g/dL 32-36 [facility] Work Phone: [phone] Platelets bldon 08-23-2021 Platelets (Bld) [#/Vol] 327 10*3/uL 150-450 [facility] Work Phone: [phone] Serum or plasma cholesterol in HDL measurement (mass/volume)on 08-23-2021 Cholesterol in HDL [Mass/Vol] 44 mg/dL >40 [facility] Work Phone: [phone] Comment on above: The drugs N-Acetylcy steine and Metamizole may falsely depress this assay. Reference Range HDL <40 mg/dL Low HDL Cholesterol HDL >or= 60 mg/dL High HDL Cholesterol Serum or plasma cholesterol in VLDL measurement (mass/volume)on 08-23-2021 Cholesterol in VLDL [Mass/Vol] 36 mg/dL 5-40 [facility] Work Phone: [phone] Serum or plasma low density lipoprotein (LDL) cholesterol measurement (mass/volume)on 08-23-2021 Cholesterol in LDL [Mass/Vol] 112 mg/dL 0-130 [facility] Work Phone: [phone] Basophil percentageon 2021 Chloride [Moles/Vol] 105 mmol/L 98-107 [facility] Work Phone: [phone] Glucose [Mass/Vol] 90 mg/dL 74-106 [facility] Work Phone: [phone] Potassium [Moles/Vol] 3.4 mmol/L 3.5-5.1 [facility] Work Phone: [phone] Sodium [Moles/Vol] 138 mmol/L 136-145 [facility] Work Phone: Laboratory - Chemistry and C hemistry - challengeon 05-15-2021 CO2 [Moles/Vol] 26.0 mmol/L 21.0-32.0 [facility] Work Phone: Urea nitrogen/Creatinine [Mass ratio] 18.6 mg/mg 10-20 [facility] Work Phone: Laboratory - Hematology and Cell countson 05-15-2021 HbA1c (Bld) [Mass fraction] 6.4 % [facility] Work Phone: No Panel Informationon 05-15 Estimated GFR (MDRD) Amer 123 mL/min >60 [facility] Work Phone: Comment on above: GFR Calc Estimated GFR (MDRD) Non-Af Amer 102 mL/min >60 [facility] Work Phone: Comment on above: Non- GFR Calc Serum or plasma calcium eveline urement (mass/volume)on 05-15-2021 Calcium [Mass/Vol] 9.5 mg/dL 8.5-10.1 [facility] Work Phone: Serum or plasma creatinine m easurement (mass/volume)on 05-15-2021 Creatinine [Mass/Vol] 0.64 mg/dL 0.55-1.02 [facility] Work Phone: Comment on above: The validity of the calculated GFR & GFRAA in patients over 70 years has not been determined. Clinical correlation is essential. Serum or plasma urea nitroge n measurement (mass/volume)on 05-15-2021 Urea nitrogen [Mass/Vol] 12 mg/dL 7-18 [facility] Work Phone: Thin prep Papanicolaou smear with manual screeningon 05-15-2021 Thin prep Papanicolaou smear with manual screening 7 5-15 [facility] Work Phone: Vital Signs Date Time Vital Sign Value Performing Clinician Terryi davie 08-31-2024 07:51-0400 Body mass index (BMI) [Ratio] 39.1 kg/m2 Dr. Jess White MD Work Phone: [facility] 08-31-2024 07:51-0400 Body temperature 97.4 [degF] Dr. Jess White MD Work Phone: [facility] 08-31-2024 07:51-0400 Body weight 103.[address] Jess White MD Work Phone: [facility] 08-31-2024 07:51-0400 Diastolic blood pressure 81 mm[Hg] Dr. Jess White MD Work Phone: [facility] 08-31-2024 07:51-0400 Heart rate 73 /min Dr. Jess White MD Work Phone: [facility] 08-31-2024 07:51-0400 Respiratory rate 20 /min Dr. Jess White MD Work Phone: [facility] 08-31-2024 07:51-0400 SaO2% (BldA) [Mass fraction] 96 % Dr. Jess White MD Work Phone: [facility] 08-31-2024 07:51-0400 Systolic blood pressure 133 mm[Hg] Dr. Jess White MD Work Phone: [facility] 07-06-2024 11:08-0400 Body height 162.[address] Jess White MD Work Phone: [facility] 07-06-2024 11:08-0400 Body mass index (BMI) [Ratio] 40.1 kg/m2 Dr. Jess White MD Work Phone: [facility] 07-06-2024 11:08-0400 Body temperature 97.7 [degF] Dr. Jess White MD Work Phone: [facility] 07-06-2024 11:08-0400 Body weight 106.[address] Jess White MD Work Phone: [facility] 07-06-2024 11:08-0400 Diastolic blood pressure 80 mm[Hg] Dr. Jess White MD Work Phone: [facility] 07-06-2024 11:08-0400 Heart rate 84 /min Dr. Jess White MD Work Phone: [facility] 07-06-2024 11:08-0400 Respiratory rate 18 /min Dr. Jess White MD Work Phone: [facility] 07-06-2024 11:08-0400 SaO2% (BldA) [Mass fraction] 98 % Dr. Jess White MD Work Phone: [facility] 07-06-2024 11:08-0400 Systolic blood pressure 138 mm[Hg] Dr. Jess White MD Work Phone: [facility] 04-01-2024 10:54-0500 Body height 162.[address] Jess White MD Work Phone: [facility] 04-01-2024 10:54-0500 Body mass index (BMI) [Ratio] 40.1 kg/m2 Dr. Jess White MD Work Phone: [facility] 04-01-2024 10:54-0500 Body temperature 97.2 [degF] Dr. Jess White MD Work Phone: [facility] 04-01-2024 10:54-0500 Body weight 106.[address] Jess White MD Work Phone: [facility] 04-01-2024 10:54-0500 Diastolic blood pressure 84 mm[Hg] Dr. Jess White MD Work Phone: [facility] 04-01-2024 10:54-0500 Heart rate 86 /min Dr. Jess White MD Work Phone: [facility] 04-01-2024 10:54-0500 Respiratory rate 16 /min Dr. Jess White MD Work Phone: [facility] 04-01-2024 10:54-0500 SaO2% (BldA) [Mass fraction] 95 % Dr. Jess White MD Work Phone: [facility] 04-01-2024 10:54-0500 Systolic blood pressure 132 mm[Hg] Dr. Jess White MD Work Phone: [facility] 06-12-2023 14:32-0500 Body height 162.[address] Jess White Work Phone: [facility] 06-12-2023 14:32-0500 Body mass index (BMI) [Ratio] 40.3 kg/m2 Dr. Jess White Work Phone: [facility] 06-12-2023 14:32-0500 Body temperature 97 [degF] Dr. Jess White Work Phone: [facility] 06-12-2023 14:32-0500 Body weight 106.[address] Jess White Work Phone: [facility] 06-12-2023 14:32-0500 Diastolic blood pressure 78 mm[Hg] Dr. Jess White Work Phone: [facility] 06-12-2023 14:32-0500 Heart rate 56 /min Dr. Jess White Work Phone: [facility] 06-12-2023 14:32-0500 Respiratory rate 16 /min Dr. Jess White Work Phone: [facility] 06-12-2023 14:32-0500 SaO2% (BldA) [Mass fraction] 98 % Dr. Jess White Work Phone: [facility] 06-12-2023 14:32-0500 Systolic blood pressure 126 mm[Hg] Dr. Jess White Work Phone: [facility] 03-27-2023 15:28-0500 Body mass index (BMI) [Ratio] 41 kg/m2 Dr. Jess White Work Phone: [facility] 03-27-2023 15:28-0500 Body temperature 98.6 [degF] Dr. Jess White Work Phone: [facility] 03-27-2023 15:28-0500 Body weight 108.[address] Jess White Work Phone: [facility] 03-27-2023 15:28-0500 Diastolic blood pressure 98 mm[Hg] Dr. Jess White Work Phone: [facility] 03-27-2023 15:28-0500 Heart rate 92 /min Dr. Jess White Work Phone: [facility] 03-27-2023 15:28-0500 Respiratory rate 16 /min Dr. Jess White Work Phone: [facility] 03-27-2023 15:28-0500 SaO2% (BldA) [Mass fraction] 95 % Dr. Jess White Work Phone: [facility] 03-27-2023 15:28-0500 Systolic blood pressure 138 mm[Hg] Dr. Jess White Work Phone: [facility] 11-14-2022 15:04-0400 Body height 162.[address] Jess White Work Phone: [facility] 11-14-2022 15:04-0400 Body mass index (BMI) [Ratio] 42.4 kg/m2 Dr. Jess White Work Phone: [facility] 11-14-2022 15:04-0400 Body temperature 96.1 [degF] Dr. Jess White Work Phone: [facility] 11-14-2022 15:04-0400 Body weight 112.[address] Jess White Work Phone: [facility] 11-14-2022 15:04-0400 Diastolic blood pressure 84 mm[Hg] Dr. Jess White Work Phone: [facility] 11-14-2022 15:04-0400 Heart rate 72 /min Dr. Jess White Work Phone: [facility] 11-14-2022 15:04-0400 Respiratory rate 18 /min Dr. Jess White Work Phone: [facility] 11-14-2022 15:04-0400 SaO2% (BldA) [Mass fraction] 98 % Dr. Jess White Work Phone: [facility] 11-14-2022 15:04-0400 Systolic blood pressure 138 mm[Hg] Dr. Jess White Work Phone: [facility] 07-23-2022 15:21-0400 Body height 162.[address] Jess White Work Phone: [facility] 07-23-2022 15:21-0400 Body mass index (BMI) [Ratio] 42 kg/m2 Dr. Jess White Work Phone: [facility] 07-23-2022 15:21-0400 Body temperature 97.6 [degF] Dr. Jess White Work Phone: [facility] 07-23-2022 15:21-0400 Body weight 111.[address] Jess White Work Phone: [facility] 07-23-2022 15:21-0400 Diastolic blood pressure 76 mm[Hg] Dr. Jess White Work Phone: [facility] [facility]22 15:21-0400 Heart rate 71 /min Dr. Jess White Work Phone: [facility] 07-23-2022 15:21-0400 Respiratory rate 14 /min Dr. Jess White Work Phone: [facility] 07-23-2022 15:21-0400 SaO2% (BldA) [Mass fraction] 97 % Dr. Jess White Work Phone: [facility] 07-23-2022 15:21-0400 Systolic blood pressure 142 mm[Hg] Dr. Jess White Work Phone: [facility] 04-10-2022 13:54-0500 Body temperature 98.6 [degF] Dr. Jess White Work Phone: [facility] 04-10-2022 13:54-0500 Body weight 111.[address] Jess White Work Phone: [facility] 04-10-2022 13:54-0500 Diastolic blood pressure 96 mm[Hg] Dr. Jess White Work Phone: [facility] 04-10-2022 13:54-0500 Heart rate 106 /min Dr. Jess White Work Phone: [facility] 04-10-2022 13:54-0500 Respiratory rate 16 /min Dr. Jess White Work Phone: [facility] 04-10-2022 13:54-0500 SaO2% (BldA) [Mass fraction] 96 % Dr. Jess White Work Phone: [facility] 04-10-2022 13:54-0500 Systolic blood pressure 156 mm[Hg] Dr. Jess White Work Phone: [facility] 11-29-2021 14:54-0400 Body height 162.[address] Jess White Work Phone: [facility] Work Phone: 11-29-2021 14:54-0400 Body mass index (BMI) [Ratio] 41.7 kg/m2 Dr. Jess White Work Phone: [facility] Work Phone: 11-29-2021 14:54-0400 Body temperature 97.8 [degF] Dr. Jess White Work Phone: [facility] Work Phone: 11-29-2021 14:54-0400 Body weight 110.[address] Jess White Work Phone: [facility] Work Phone: 11-29-2021 14:54-0400 Diastolic blood pressure 80 mm[Hg] Dr. Jess White Work Phone: [facility] Work Phone: 11-29-2021 14:54-0400 Heart rate 79 /min Dr. Jess White Work Phone: [facility] Work Phone: 11-29-2021 14:54-0400 Respiratory rate 16 /min Dr. Jess White Work Phone: [facility] Work Phone: 11-29-2021 14:54-0400 SaO2% (BldA) [Mass fraction] 97 % Dr. Jess White Work Phone: [facility] Work Phone: 11-29-2021 14:54-0400 Systolic blood pressure 118 mm[Hg] Dr. Jess White Work Phone: [facility] Work Phone: 08-23-2021 14:30-0400 Body mass index (BMI) [Ratio] 41.8 kg/m2 Dr. Jess White Work Phone: [facility] Work Phone: 08-23-2021 14:30-0400 Body temperature 98.7 [degF] Dr. Jess White Work Phone: [facility] Work Phone: 08-23-2021 14:30-0400 Body weight 110.[address] Jess White Work Phone: [facility] Work Phone: 08-23-2021 14:30-0400 Diastolic blood pressure 80 mm[Hg] Dr. Jess White Work Phone: [facility] Work Phone: 08-23-2021 14:30-0400 Heart rate 84 /min Dr. Jess White Work Phone: [facility] Work Phone: 08-23-2021 14:30-0400 Respiratory rate 16 /min Dr. Jess White Work Phone: [facility] Work Phone: 08-23-2021 14:30-0400 SaO2% (BldA) [Mass fraction] 97 % Dr. Jess White Work Phone: [facility] Work Phone: 08-23-2021 14:30-0400 Systolic blood pressure 136 mm[Hg] Dr. Jess White Work Phone: [facility] Work Phone: 08-23-2021 14:30-0400 Body height 162.[address] Jess White Work Phone: [facility] Work Phone: 08-23-2021 14:30-0400 Body mass index (BMI) [Ratio] 41.8 kg/m2 Dr. Jess White Work Phone: [facility] Work Phone: 08-23-2021 14:30-0400 Body temperature 98.7 [degF] Dr. Jess White Work Phone: [facility] Work Phone: 08-23-2021 14:30-0400 Body weight 110.[address] Jess White Work Phone: [facility] Work Phone: 08-23-2021 14:30-0400 Diastolic blood pressure 80 mm[Hg] Dr. Jess White Work Phone: [facility] Work Phone: 08-23-2021 14:30-0400 Heart rate 84 /min Dr. Jess White Work Phone: [facility] Work Phone: 08-23-2021 14:30-0400 Respiratory rate 16 /min Dr. Jess White Work Phone: [facility] Work Phone: 08-23-2021 14:30-0400 SaO2% (BldA) [Mass fraction] 97 % Dr. Jess White Work Phone: [facility] Work Phone: 08-23-2021 14:30-0400 Systolic blood pressure 136 mm[Hg] Dr. Jess White Work Phone: [facility] Work Phone: 05-15-2021 13:27-0500 Body mass index (BMI) [Ratio] 42.7 kg/m2 Dr. Jess White Work Phone: [facility] Work Phone: 05-15-2021 13:27-0500 Body temperature 97.3 [degF] Dr. Jess White Work Phone: [facility] Work Phone: 05-15-2021 13:27-0500 Body weight 112.[address] Jess White Work Phone: [facility] Work Phone: 05-15-2021 13:27-0500 Diastolic blood pressure 80 mm[Hg] Dr. Jess White Work Phone: [facility] Work Phone: 05-15-2021 13:27-0500 Heart rate 67 /min Dr. Jess White Work Phone: [facility] Work Phone: 05-15-2021 13:27-0500 Respiratory rate 16 /min Dr. Jess White Work Phone: [facility] Work Phone: 05-15-2021 13:27-0500 SaO2% (BldA) [Mass fraction] 99 % Dr. Jess White Work Phone: [facility] Work Phone: 05-15-2021 13:27-0500 Systolic blood pressure 120 mm[Hg] Dr. Jess White Work Phone: [facility] Work Phone: Encounters Encounter Date Encounter Type Care Provider Facility Start: 09-15-2024 End: 09-15-[address] Jess White MD Work Phone: [facility] Work Phone: Start: 09-15-2024 End: 09-15-2024 Patient encounter procedure [employer] Francesca Baumann -[facility] Work Phone: Start: 09-15-2024 End: 09-15-2024 ambulatory [facility] Facility:[facility] Start: 08-31-2024 End: 08-31-2024 Patient encounter procedure MK Baumann -[facility] Work Phone: Start: 08-31-2024 End: 08-31-[address] Jess White MD Work Phone: [facility] Work Phone: Start: 07-06-2024 End: 07-06-[address] Jess White MD -[facility] Work Phone: Start: 07-06-2024 End: 07-06-[address] Jess White MD [facility] Start: 07-06-2024 End: 07-06-[facility] [place] [place]: 06-29-2024 End: 06-29-[address] Jess White MD Work Phone: [facility] Work Phone: Start: 06-29-2024 End: 06-29-[address] Jess White MD -Laboratory, [place] Start: 06-29-2024 End: 06-29-2024 ambulatory [facility] Facility:[facility] Start: 04-01-2024 End: 04-01-[address] Jess White MD -[facility] Work Phone: Start: 04-01-2024 End: 04-01-2024 ambulatory [facility] [place] [place]: 03-02-2024 End: 03-02-2024 ambulatory Lisa Kaplan Facility:[facility] Start: 12-25-2023 End: 12-25-[facility] Start: 10-09-2023 End: 10-09-2023 ambulatory [facility] Facility:[facility] Start: 06-24-2023 End: 06-24-[address] Jess White Work Phone: [facility] Work Phone: Start: 06-24-2023 End: 06-24-[address] Jess White Work Phone: [facility] [place] Start: 06-12-2023 End: 06-12-[address] Jess White Work Phone: [facility] Work Phone: Start: 06-10-2023 End: 06-10-[address] Jess White Work Phone: [facility] Work Phone: Start: 06-10-2023 End: 06-10-[address] Jess White Work Phone: [facility] [place] Start: 03-27-2023 End: 03-27-[address] Jess White Work Phone: [facility] Work Phone: Start: 02-20-2023 End: 02-20-2023 Encounter for general adult medical examination without abnormal findings Dr. Jess White Work Phone: [facility] Start: 02-20-2023 End: 02-20-[address] Jess White Work Phone: [facility] Internal [facility] Work Phone: Start: 11-14-2022 End: 11-14-[address] Jess White Work Phone: [facility] Work Phone: Start: 11-14-2022 End: 11-14-[address] Jess White Work Phone: [facility] Work Phone: Start: 09-09-2022 End: 09-09-[address] Jess White Work Phone: [facility]-Outpatient Breast Imaging Work Phone: Start: 08-05-2022 End: 08-05-[address] Jess White Work Phone: [facility] Work Phone: Start: 07-23-2022 End: 07-23-[address] Jess White Work Phone: [facility] Work Phone: Start: 07-23-2022 End: 07-23-[address] Jess White Work Phone: [facility] Internal Medicine Start: 04-10-2022 End: 04-10-[address] Jess White Work Phone: [facility]-Laboratory, Spec[facility] Start: 11-29-2021 End: 11-29-[address] Jess White Work Phone: [facility] Work Phone: Start: 11-29-2021 End: 11-29-[address] Jess White Work Phone: [facility] Internal Medicine Start: 09-03-2021 End: 09-03-[address] Jess hWite Work Phone: [facility]-Outpatient Breast Imaging Start: 08-23-[address] Jess White Work Phone: [facility] Start: 08-23-2021 End: 08-23-2021 Encounter for general adult medical examination without abnormal findings Dr. Jess White Work Phone: [facility] Internal Medicine Start: 08-23-2021 End: 08-23-[address] Jess White Work Phone: [facility] Internal Medicine Start: 05-15-2021 End: 05-15-[address] Jess White Work Phone: [facility] Procedures Date Procedure Procedure Detail Performing Clinician Start: 09-09-[address] Jess roche Work Phone: Start: 08-05-2022 Plain x-ray of wrist Dr. Jess adams Work Phone: Start: 09-03-[address] Jess roche Work Phone: H/O: hysterectomy History of hysterectomy Dr. Jess White Work Phone: History of cholecystectomy History of cholecystectomy Dr. Jess White Work Phone: History of tonsillectomy History of tonsi llectomy Dr. Jess White Work Phone: Plan of Treatment Date Care Activity Detail Author Start: 07-23-2022 Patient referral [facility] Work Phone: Basic metabolic 2008 panel with ionized calcium - Serum or Plasma [facility] Hemoglobin A1c/Hemog lobin.total in Blood [facility] MG Breast - bilateral Screening [facility] Patient referral [facility] Work Phone: Potassium [Moles/vol ume] in Serum or Plasma [facility] T4 free measurement [facility] Thyroid stimulating hormone measurement [facility] Viral nucleic acid assay [facility] Immunizations Immunization Date Immunization Notes Care Provider Fa cility 12-25-2023 influenza, injectabl e, madin katarzyna canine kidney, preservative free Dr. eJss White MD Work Phone: [facility] 02-20-2023 influenza, injectabl e, quadrivalent, preservative free Dr. Jess White Work Phone: [facility] 02-21-2022 influenza, injectabl e, quadrivalent, preservative free Dr. Jess White Work Phone: [facility] 02-21-2022 influenza, seasonal, injectable Dr. Jess White Work Phone: [facility] 02-15-2020 Flucelvax Quad (PF) (flu vac qs 2019(4 yr up)CD(PF)) 60 mcg ([address] Jess White Work Phone: [facility] Work Phone: 02-15-2020 influenza, injectable,quadrivalent , preservative free, pediatric Dr. Jess White Work Phone: [facility] Payers Date Payer Category Payer Unknown [id number] 2023 Self-pay [id number] 2023 Unknown [id number] 2016 Unknown [id number] 21 [id number] Unknown [id number] 2.16.8 [id number] Unknown [id number] 2.16.8 [id number] Unknown [id number] 2.16.8 [id number] Unknown [id number] 2.16.8 [id number] Unknown [id number] 2.16.8 [id number] Unknown [id number] 2.16.8 [id number] Unknown [id number] 2.16.8 [id number] Unknown [id number] 2.16.8 [id number] Social History Date Type Detail Facility Start: 08-23-2021 End: 06-12-2023 Tobacco smoking status NYIS Unknown if ever smoked [facility] Start: 1965 Sex Assigned At Female [facility] Start: 06-12-2023 Tobacco smoking stat us NYIS Never smoked tobacco (finding) [facility] Start: 07-04-2024 Sex Female (finding) [facility] Medical Equipment Procedure Code Equipment Code Equipment Origin al Text Equipment Identifier Dates Lancets Start: 11-15-2019 End: 04-30-2020 Lancets Start: 04-30-2020 End: 05-16-2020 Lancets Start: 11-15-2019 End: 04-30-2020 Lancets Start: 04-30-2020 End: 05-16-2020 Lancets Start: 11-15-2019 End: 04-30-2020 Lancets Start: 04-30-2020 End: 05-16-2020 Lancets Start: 11-15-2019 End: 04-30-2020 Lancets Start: 04-30-2020 End: 05-16-2020 Lancets Start: 11-15-2019 End: 04-30-2020 Lancets Start: 04-30-2020 End: 05-16-2020 Lancets Start: 11-15-2019 End: 04-30-2020 Lancets Start: 04-30-2020 End: 05-16-2020 Lancets Start: 11-15-2019 End: 04-30-2020 Lancets Start: 04-30-2020 End: 05-16-2020 Blood Sugar Diagnostic strip Start: 11-16-2019 Lancets misc Start: 11-15-2019 End: 04-30-2020 Lancets misc Start: 04-30-2020 End: 05-16-2020 Blood Sugar Diagnostic strip Start: 11-16-2019 Lancets misc Start: 11-15-2019 End: 04-30-2020 Lancets misc Start: 04-30-2020 End: 05-16-2020 Blood Sugar Diagnostic strip Start: 11-16-2019 Lancets misc Start: 11-15-2019 End: 04-30-2020 Lancets misc Start: 04-30-2020 End: 05-16-2020 Evaluation note 07-06-2024 Note Date & Type Note Facility 07-06-2024 Evaluation note Diagnosis Onset Date Resolution Health care maintenance acute A pril 2024 11:11am Anxiety and depression chronic Ap ril 2024 11:11am BMI 40.0-44.9, adult chronic Apri l 2024 11:11am Hypertension chronic July 06 11:11am Type 2 diabetes mellitus chronic July 06, 2024 11:11am Major depressive disorder chronic August 31, 2024 11:10am Obesity chronic August 31, 2024 11:10am OSMIN (obstructive sleep apnea) chronic August 31, 2024 11:10am [facility] Work Phone: Evaluation note 04-01-2024 Note Date & Type Note Facility 04-01-2024 Evaluation note Diagnosis Onset Date Resolution Anxiety and depression chronic De cember 2023 10:49am Hypertension chronic March 10:49am Musculoskeletal back pain chronic April 01, 2024 10:49am Type 2 diabetes mellitus chronic April 01, 2024 10:49am [facility] Work Phone: Chief complaint+Reason for visit Narrative Note Date & Type Note Facility Chief complaint+Reason for visit Narrative Reason for Visit Exposure to COVID-19 virus Anxiety and depression Hypertension Pain of left thumb Type 2 diabetes mellitus [facility] Work Phone: Evaluation note Note Date & Type Note Facility Evaluation note Diagnosis Onset Date Anxiety and depression chron ic Hypertension chronic Type 2 diabetes mellitus chr onic Health care maintenance acut e Anxiety and depression chron ic Type 2 diabetes mellitus chr ic [facility] Work Phone: Evaluation note Note Date & Type Note Facility Evaluation note Diagnosis Onset Date Health care maintenance acut e Anxiety and depression chron ic Type 2 diabetes mellitus [facility] onic Musculoskeletal back pain ac sharda Screening for thyroid disorder acute Vitamin D deficiency acute Hypertension chronic Type 2 diabetes mellitus [facility] Work Phone: Evaluation note Note Date & Type Note Facility Evaluation note Diagnosis Onset Date Exposure to COVID-19 virus n [employer] Anxiety and depression chron ic Hypertension chronic Pain of left thumb chronic Type 2 diabetes mellitus [facility] Work Phone: Evaluation note Note Date & Type Note Facility Evaluation note Diagnosis Onset Date Anxiety and depression chron ic Hypertension chronic Pain of left thumb chronic Type 2 diabetes mellitus [facility] onic Osteoarthritis of carpometac arpal joint of left thumb acute Pain of left thumb chronic URI (upper respiratory infection) acute Anxiety and depression chron ic BMI 40.0-44.9, adult chronic Hypertension chronic Type 2 diabetes mellitus [facility] Work Phone: Evaluation note Note Date & Type Note Facility Evaluation note Diagnosis Onset Date Health care maintenance acut e Anxiety and depression chron ic BMI 40.0-44.9, adult chronic Hypertension chronic Type 2 diabetes mellitus chr on[facility] Anxiety and depression chron ic BMI 40.0-44.9, adult chronic Type 2 diabetes mellitus chr on[facility] Hypokalemia acute Right elbow pain acute BMI 40.0-44.9, adult chronic Hypertension chronic Type 2 diabetes mellitus [facility] Work Phone: Evaluation note Note Date & Type Note Facility Evaluation note Diagnosis Onset Date Anxiety and depression chron ic BMI 40.0-44.9, adult chronic Type 2 diabetes mellitus chr onic Hypokalemia acute Right elbow pain acute BMI 40.0-44.9, adult chronic Hypertension chronic Type 2 diabetes mellitus [facility] Work Phone: Reason for referral (narrative) Note Date & Type Note Facility Reason for referral (narrative) No reason for referral information available [facility] Work Phone: Chief Complaint and Reason for Visit Chief Complaint 3 M FU 3 M FU Reason for Visit Anxiety and depressi on Hypertension Type 2 diabetes mellitus Health care maintenance Anxiety and depression Type 2 diabetes mellitus Chief Complaint 3 M FU 3 M FU SCREENING Reason for Visit Anxiety and depressi on Hypertension Type 2 diabetes mellitus Health care maintenance Anxiety and depression Type 2 diabetes mellitus Chief Complaint 3 M FU SCREENING 3 M FU Reason for Visit Health care [facility] Anxiety and depression Type 2 diabetes mellitus Musculoskeletal back pain Screening for thyroid disorder Vitamin D deficiency Hypertension Type 2 diabetes mellitus Chief Complaint 4 M FU left hand RM 2 SCREENING 4 M FU Reason for Visit Anxiety and depressi on Hypertension Pain of left thumb Type 2 diabetes mellitus Osteoarthritis of carpometacarpal joint of left thumb Pain of left thumb URI (upper respiratory infection) Anxiety and depression BMI 40.0-44.9, adult Hypertension Type 2 diabetes mellitus Chief Complaint 3 M FU MED CHECK 3 M FU Reason for Visit Health care maintena nce Anxiety and depression BMI 40.0-44.9, adult Hypertension Type 2 diabetes mellitus Anxiety and depression BMI 40.0-44.9, adult Type 2 diabetes mellitus Hypokalemia Right elbow pain BMI 40.0-44.9, adult Hypertension Type 2 diabetes mellitus Chief Complaint MED CHECK 3 M FU Reason for Visit Anxiety and depressi on BMI 40.0-44.9, adult Type 2 diabetes mellitus Hypokalemia Right elbow pain BMI 40.0-44.9, adult Hypertension Type 2 diabetes mellitus Chief Complaint Admit Date 3 M FU April 01, 2024 10:49am Reason for Visit Admit Date Anxiety and depression April 01 10:49am Hypertension April 01, 2024 10:49am Musculoskeletal back pain April 01, 2024 10:49am Type 2 diabetes mellitus April 01, 2024 10:49am Chief Complaint Admit Date 3 M FU July 06, 2024 11:1 1am 6 M FU August 31, 2024 11:10 am Reason for Visit Admit Date Health care maintenance July 06, 2024 11:11am Anxiety and depression July 06, 2024 1 1:11am BMI 40.0-44.9, adult July 06, 2024 11: 11am Hypertension July 06, 2024 11:1 1am Type 2 diabetes mellitus July 06, 2024 11:11am Major depressive disorder August 31, 2024 11:10am Obesity August 31, 2024 11:10 am OSMIN (obstructive sleep apnea) August 31, 2024 11:10am Chief Complaint Admit Date 3 M FU July 06, 2024 11:1 1am 6 M FU August 31, 2024 11:10 am G47.33 - Obstructive sleep apnea (adult) (pediatri September 15, 2024 1:00pm Family History No Family History Records Found Relationship Condition Age at Onset Recorded Date/T fidel father Hypertension Unknown Diabetes mellitus Unknown mother Hypertension Unknown Myocardial infarction Unknown Systemic lupus erythematosus Unknown sister Diabetes mellitus Unknown Summary Purpose Advance Directives No Advanced Directives Records Found Additional Source Comments Goals (unrecognized section and content) Goals may be documented in a n alternate sectionGoals may be documented in an alternate sectionGoals may be documented in an alternate sectionGoals may be documented in an alternate sectionGoals may be documented in an alternate sectionGoals may be documented in an alternate sectionGoals may be documented in an alternate sectionGoals may be documented in an alternate sectionGoals may be documented in an alternate sectionGoals may be documented in an alternate section Care Teams (unrecognized sec tion and content) Team Status: Active Member Role Status Dates Dr. Jayy Cisse MD Family Provider Active Dr. Jess White MD Primary Care Provider Active Team Status: Inactive Member Role Status Dates Dr. Jess White MD Primary Care P el, Attending Provider, Referring Provider Active Team Status: Inactive Member Role Status Dates Dr. Jess White MD Primary Care Provider, Refer ring Provider Active DAGO Bentley Attending Provider Active Team Status: Inactive Member Role Status Dates Dr. Jess White MD Primary Care Provider Active DAGO Bentley Attending Provider, Referring Pro vider Active Team Status: Inactive Member Role Status Dates Dr. Jess White MD Primary Care Provider, Refer ring Provider Active Mike Rizzo MD Attending Provider Active Team Status: Inactive Member Role Status Dates Dr. Jess White MD Primary Care Provider Active Dr. Alin Luque MD Attending Provider Active Team Status: Inactive Member Role Status Dates Dr. Jess White MD Primary Care Provider, Refer ring Provider Active Campos LOZA PA Attending Provider Active Team Status: Inactive Member Role Status Dates Dr. Jess White MD Primary Care Provider, Atten ding Provider Active Team Status: Inactive Member Role Status Dates Dr. Jess White MD Primary Care Provider Active Start: April 01, 2024 End: April 01, 2024 Dr. Jess White MD Attending Provider Active Start: April 01, 2024 End: April 01, 2024 Dr. Jess White MD Referring Provider Active Start: April 01, 2024 End: April 01, 2024 Team Status: Inactive Member Role Status Dates Dr. Jess White MD Primary Care Provider Active Start: June 29, 2024 End: June 29, 2024 Dr. Jess White MD Attending Provider Active Start: June 29, 2024 End: June 29, 2024 Dr. Jess White MD Referring Provider Active Start: June 29, 2024 End: June 29, 2024 Team Status: Inactive Member Role Status Dates Dr. Jess White MD Primary Care Provider Active Start: July 06, 2024 End: July 06, 2024 Dr. Jess White MD Attending Provider Active Start: July 06, 2024 End: July 06, 2024 Dr. Jess White MD Referring Provider Active Start: July 06, 2024 End: July 06, 2024 Team Status: Inactive Member Role Status Dates Dr. Jess White MD Primary Care Provider Active Start: August 31, 2024 End: August 31, 2024 Dr. Jess White MD Referring Provider Active Start: August 31, 2024 End: August 31, 2024 ERON Ochoa Attending Provider Active Start: August 31, 2024 End: August 31, 2024 Team Status: Active Member Role Status Dates Dr. Jess White MD Primary Care Provider Active Team Status: Inactive Member Role Status Dates Dr. Jess White MD Primary Care Provider Active Start: September 15, 2024 End: September 15, 2024 ERON Ochoa Attending Provider Active Start: September 15, 2024 End: September 15, 2024 ERON Ochoa Referring Provider Active Start: September 15, 2024 End: September 15, 2024 INFORMATION SOURCE (unrecogn ized section and content) DATE CREATED AUTHOR 09/25/2024 [facility] FOR RECORDS PERTAINING TO PATIENTS WHO ARE OR HAVE BEEN ENROLLED IN A CHEMICAL DEPENDENCY/SUBSTANCEABUSE PROGRAM, SOME INFORMATION MAY BE OMITTED. This clinical summary was aggregated from multiple sources. Caution should be exercised in using it in the provision of clinical care. This summary normalizes information from multiple sources, and as a consequence, information in this document may materially change the coding, format and clinical context of patient data. In addition, data may be omitted in some cases. CLINICAL DECISIONS SHOULD BE BASED ON THE PRIMARY CLINICAL RECORDS. [facility], [facility]. provides no warranty or guarantee of the accuracy or completeness of information in this document.
== END | disposition home or self-care (01) ==
LOC: SL 10-13 06:06
PROVIDERS: PCP Internal Medicine; Visit Provider Nurse Practitioner Family
DX: Z46.89 Encounter for fitting and adjustment of other specified devices (principal)

== ENCOUNTER → 2024-11-10 | Outpatient (CLI) | payer OTHER, SELFPAY ==
[2024-11-10 12:25] LABS: Anion Gap 17 (5-15); BUN 13 mg/dL (4-19); BUN/Creat Ratio 18.1 RATIO (10-20); Calcium,Total 10.3 mg/dL (7.6-11.0); Carbon Dioxide 19.9 mmol/L (21.0-32.0); Chloride 103 mmol/L (98-108); Glucose 111 mg/dL (70-99); Potassium 3.7 mmol/L (3.3-5.1); Vitamin D,25 Hydroxy 51.0 ng/mL (30-100)
[2024-11-11 10:15] LABS: BETA-HYDROXYBUTYRATE 0.2 mmol/L (0.0-0.3)
== END | disposition home or self-care (01) ==
LOC: LAB 11:06
PROVIDERS: PCP Internal Medicine; Referring Provider Internal Medicine; Visit Provider Internal Medicine
DX: E11.69 Type 2 diabetes mellitus with other specified complication (principal); I10 Essential (primary) hypertension; E55.9 Vitamin D deficiency, unspecified
CPT/HCPCS: 36415; 80048; 82010; 82306; 83036; 84439; 84443

== ENCOUNTER → 2024-12-02 | Outpatient (CLI) | payer OTHER, SELFPAY ==
[2024-12-02 11:21] LABS: Anion Gap 14 (5-15); BETA-HYDROXYBUTYRATE 0.3 mmol/L (0.0-0.3); BUN 14 mg/dL (4-19); BUN/Creat Ratio 20.5 RATIO (10-20); Calcium,Total 10.0 mg/dL (7.6-11.0); Carbon Dioxide 21.9 mmol/L (21.0-32.0); Chloride 104 mmol/L (98-108); Glucose 108 mg/dL (70-99); Potassium 4.1 mmol/L (3.3-5.1)
== END | disposition home or self-care (01) ==
LOC: LAB 09:55
PROVIDERS: PCP Internal Medicine; Referring Provider Internal Medicine; Visit Provider Internal Medicine
DX: E87.8 Other disorders of electrolyte and fluid balance, not elsewhere classified (principal)
CPT/HCPCS: 36415; 80048; 82010

== ENCOUNTER → 2024-12-29 | Outpatient (CLI) | payer OTHER, SELFPAY ==
--- NOTE | 2024-12-29 15:45 | BI_ITS ---
EXAM: SCRN MAMM (CAD)W/ANAIS BILAT DATE: 12/29/2024 CLINICAL HISTORY: F, Age 59 y/o , BREAST CANCER SCREENING TECHNIQUE: Procedure Code: [id number] Modality: MG Procedure: SCRN MAMM (CAD)W/ANAIS BILAT COMPARISON: Prior exam(s) dated 10/09/2023, 09/09/2022, 09/03/2021. FINDINGS: TISSUE DENSITY: There are scattered areas of fibroglandular density. Bilateral Breast Mammographic Findings: No significant masses, calcifications or other abnormalities are identified. BI/SCRN MAMM (CAD)W/ANAIS BILAT IMPRESSION: There is no mammographic evidence of malignancy. OVERALL FINAL ASSESSMENT BI-RADS 1: NEGATIVE. RECOMMENDATION: Routine annual follow-up in 1 Year Additional Recommendation none A letter with findings and recommendations will be mailed to the patient. Reading Location: [id number]
== END | disposition home or self-care (01) ==
LOC: OPBI 15:42
PROVIDERS: PCP Internal Medicine; Referring Provider Physician Assistant; Visit Provider Physician Assistant
DX: Z12.31 Encounter for screening mammogram for malignant neoplasm of breast (principal)
CPT/HCPCS: 77063; 77067

== ENCOUNTER → 2025-02-02 | Outpatient (CLI) | payer OTHER, SELFPAY | END | disposition home or self-care (01) | LOC: SL 12:01 | PROVIDERS: PCP Internal Medicine; Referring Provider Nurse Practitioner Family; Visit Provider Nurse Practitioner Family | DX: G47.33 Obstructive sleep apnea (adult) (pediatric) (principal) ==

== ENCOUNTER 2025-02-20 06:11 | Day surgery (SDC) | payer OTHER, SELFPAY ==
[2025-02-20] VITALS (8 sets, daily range): BP systolic 92–136; BP diastolic 54–88; PULSE 63–68; RESP 14–16; TEMP 36.2–36.4; O2SAT 96–99; BMI 35.9
--- OUTSIDE RECORDS SUMMARY | 2025-02-20 06:23 | XMS RPT_ITS | CCD ---
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 Jess White Primary Care Provider [phone] Dr. Jess White Attending Provider [phone] Dr. Jess White Referring Provider [phone])2 Dr. Jess White Primary Care Provider 1(33 0) Christopher, Dr. Mercado Referring Provider [phone] DAGO Brand Attending Provider [facility] le Dr. Jess White Attending Provider [phone])2 Dr. Jess White Primary Care Provider 1(33 0) Dr. Jess White Referring Provider [phone])2 MD Mike Rizzo Attending Provider [phone] Dr. Alin Luque Attending Provider [phone] Dr. Jess White Primary Care Provider 1(33 0) Dr. Jess White Attending Provider [phone])2 Dr. Jess White Referring Provider [phone])2 DAGO Baxter Attending Provider 1(330) Dr. Jess White Primary Care Provider 1(33 0) Dr. Jess White Referring Provider [phone])2 Dr. Jess White Attending Provider [phone])2 Dr. Jess White MD Primary Care Provider Christopher JAIN, Dr. Mercado Attending Provider [phone] Christopher JAIN, Dr. Mercado Referring Provider 1(33 0) Christopher JAIN, Dr. Mercado Primary Care Provider Christopher JAIN, Dr. Mercado Attending Provider [phone] Christopher JAIN, Dr. Mercado Referring Provider [phone] Ibis [employer]-CFrancesca Attending Provider Ibis [employer]ER-CFrancesca Referring Provider Christopher JAIN, Dr. Mercado Primary Care Provider Christopher JAIN, Dr. Mercado Attending Provider [phone] [phone]) Christopher JAIN, Dr. Mercado Referring Provider 1(33 0) Christopher JAIN, Dr. Mercado Primary Care Provider Christopher JAIN, Dr. Mercado Referring Provider 1(33 0) Christopher JAIN, Dr. Mercado Attending Provider [phone] Campos Baxter Attending Provider Christopher JAIN, Dr. Mercado Primary Care Physician Francesca Alberto Attending Physician [phone] Christopher JAIN, Dr. Mercado Attending Physician [phone]) Christopher JAIN, Dr. Mercado Referring Provider [phone] Campos Baxter Attending Physician Campos Baxter Referring Provider Debi JAIN, Dr. Jones Attending Physician Christopher JAIN, Dr. Mercado Primary Care Physician Ibis TERRAZAS-CFrancesca Attending Physician [phone] Jess White Primary Care Unavailable Jess White Referring Unavailable Oleghe, Efewongbe Attending Unavailable Oleghe, Efewongbe Primary Care Unavailable Francesca Baumann Attending Unavailable Oleghe, Efewongbe Primary Care Unavailable Karen Carrera Attending Unavailable Oleghe, Efewongbe Primary Care Unavailable Francesca Baumann Referring Unavailable Francesca Baumann Attending Unavailable Oleghe, Efewongbe Primary Care Unavailable Oleghe, Efewongbe Referring Unavailable Oleghe, Efewongbe Attending Unavailable Oleghe, Efewongbe Primary Care Unavailable Oleghe, Efewongbe Referring Unavailable Oleghe, Efewongbe Attending Unavailable Oleghe, Efewongbe Primary Care Unavailable Oleghe, Efewongbe Referring Unavailable Francesca Baumann Attending Unavailable Oleghe, Efewongbe Primary Care Unavailable Oleghe, Efewongbe Referring Unavailable Campos Baxter Attending Unavailable Oleghe, Efewongbe Primary Care Unavailable Oleghe, Efewongbe Referring Unavailable RobothamKaren Attending Unavailable Oleghe, Efewongbe Primary Care Unavailable Oleghe, Efewongbe Referring Unavailable Francesca Baumann Attending Unavailable Oleghe, Efewongbe Primary Care Unavailable Oleghe, Efewongbe Referring Unavailable Lisa Kaplan NP Attending Unavailable Oleghe, Efewongbe Primary Care Unavailable Oleghe, Efewongbe Referring Unavailable Oleghe, Efewongbe Attending Unavailable Oleghe, Efewongbe Primary Care Unavailable Oleghe, Efewongbe Referring Unavailable Oleghe, Efewongbe Attending Unavailable Oleghe, Efewongbe Primary Care Unavailable Campos Baxter Referring Unavailable Campos Baxter Attending Unavailable Oleghe, Efewongbe Primary Care Unavailable Francesca Baumann Referring Unavailable Francesca Baumann Attending Unavailable Medications Current Medications Medication Drug Class(es) Dates Sig (Normalized) Sig (Original) Blood Sugar Diagnostic (7 sources) Start: 11-16-2019 Blood Sugar Diagnostic Active 0 .ROUTE .MEDSUPPLY November 16, 2019 2:25pm As directed Start: 11-16-2019 Blood Sugar Di agnostic Active 0 .ROUTE .MEDSUPPLY November 16, 2019 12:00am As directed iron-vitamin B complex with C 27 mg-300 mg tablet (7 sources) Start: 02-15-2020 iron-vitamin B complex with C 27 mg-300 mg tablet Active TABLET PO February 15, 2020 4:13pm Start: 02-15-2020 iron-vitamin B complex with C 27 mg-300 mg tablet Active TABLET PO February 15, 2020 1:00am Iron-Vitamin B Complex With C 27-300 mg tablet (15 sources) Start: 12-09-2024 Start: 12-09-2024 Iron-Vitamin B Complex With C 27-300 mg tablet Active {tbl} PO DAILY December 09, 2024 11:24am Complies with drug therapy Start: 12-09-2024 Iron-Vitamin B Complex With C 27-300 mg tablet Active {tbl} PO DAILY December 09, 2024 11:24am Start: 02-15-2020 End: 12-09-2024 Iron-Vitamin B Complex With C 27-300 mg tablet Discontinued {tbl} PO February 15, 2020 1:00am December 09, 2024 11:25am Start: 02-15-2020 Iron-Vitamin B Complex With C 27-300 mg tablet Active {tbl} PO February 15, 2020 1:00am melatonin 10 mg oral capsule (5 sources) Start: 12-09-2024 take 1 capsule by mouth at bedtime as needed Melatonin 10 mg capsule Active 10 mg PO BEDTIME as needed December 09, 2024 12:00am Complies with drug therapy Multivitamin With Iron (Daily Vitamin With Iron) tablet (17 sources) Start: 09-14-2019 take 1 tablet by mouth once daily Multivitamin With Iron (Daily Vitamin With Iron) tablet Active 1 TABLET PO DAILY September 14, 2019 3:48pm Start: 09-14-2019 Start: 09-14-2019 Multivitamin W ith Iron (Daily Vitamin With Iron) tablet Active 1 {tbl} PO DAILY September 14, 2019 12:00am Complies with drug therapy Start: 09-14-2019 Multivitamin W ith Iron (Daily Vitamin With Iron) tablet Active 1 {tbl} PO DAILY September 14, 2019 12:00am Start: 09-14-2019 take 1 tablet by melecio th once daily Multivitamin With Iron (Daily Vitamin With Iron) tablet Active 1 TABLET PO DAILY September 14, 2019 12:00am omeprazole 20 mg delayed release oral tablet (20 sources) Proton Pump Inhibitor Start: 02-18-2019 End: 12-09-2024 take 1 tablet by mouth once daily Omeprazole Magnesium (Prilosec Otc) 20 mg tablet,delayed release (DR/EC) Active 20 mg PO DAILY 90 December 09, 2024 11:52am Complies with drug therapy Rhubarb Root Extract (Estroven Cmplt Menopause Rlf) 4 mg tablet (20 sources) Start: 12-09-2024 take 1 mg by mouth once daily Start: 12-09-2024 take 1 mg by mouth once daily Rhubarb Root Extract (Estroven Cmplt Menopause Rlf) 4 mg tablet Active mg PO DAILY December 09, 2024 11:25am Complies with drug therapy Start: 12-09-2024 take 1 mg by mouth once daily Rhubarb Root Extract (Estroven Cmplt Menopause Rlf) 4 mg tablet Active mg PO DAILY December 09, 2024 11:25am Start: 09-12-2019 Rhubarb Root E xtract (Estroven Cmplt Menopause Rlf) 4 mg tablet Active MG PO September 12, 2019 1:05pm Start: 09-12-2019 End: 12-09-2024 Rhubarb Root Extract (Estrov en Cmplt Menopause Rlf) 4 mg tablet Discontinued mg PO September 12, 2019 12:00am December 09, 2024 11:25am Start: 09-12-2019 Rhubarb Root E xtract (Estroven Cmplt Menopause Rlf) 4 mg tablet Active mg PO September 12, 2019 12:00am Start: 09-12-2019 Rhubarb Root E xtract (Estroven Cmplt Menopause Rlf) 4 mg tablet Active MG PO September 12, 2019 12:00am Semaglutide (Weight Loss) (3 sources) Start: 01-05-2025 Start: 01-05-2025 Semaglutide (W eight Loss) 0.25 mg/0.5 mL pen injector Active 0.25 mg SC EVERY WEEK January 05, 2025 12:00am administer weeks 1 through 4 of therapy Complies with drug therapy Tirzepatide (10 sources) Start: 06-12-2023 Tirzepatide Ac [...] 20, 2023 1:00am March 20, 2023 1:05am traZODone hydrochloride 50 m g oral tablet (6 sources) Serotonin Reuptake Inhibitor Start: 01-30-2025 Start: 12-09-2024 End: 01-30-2025 Trazodone 50 mg tablet Disco ntinued 25 mg PO AT BEDTIME as needed for insomnia 30 December 09, 2024 12:00am January 30, 2025 3:56pm Completed/Discontinued Medications Medication Drug Class(es) Dates Sig (Normalized) Sig (Original) baclofen 10 mg oral tablet (20 sources) gamma-Aminobutyric Acid-ergic Agonist Start: 09-12-2020 End: 12-09-2024 take 1 tablet by mouth twice daily as needed for muscle spasms Baclofen 10 mg tablet Discontinued 10 mg PO TWICE A DAY as needed for muscle spasm 180 November 29, 2021 3:24pm December 09, 2024 11:23am benzonatate 100 mg oral capsule (20 sources) Non-narcotic Antitussive Start: 04-10-2022 End: 07-23-2022 take 1 capsule by mouth twice daily as needed for cough Benzonatate 100 mg capsule Discontinued 100 mg PO TWICE A DAY as needed for cough 30 April 10, 2022 3:18pm July 23, 2022 3:18pm Start: 11-15-2020 End: 05-15-2021 take 1 capsule by mouth twice daily as needed for cough Benzonatate (Tessalon Perles) 100 mg capsule Discontinued 100 mg PO TWICE A DAY as needed for cough 30 December 25, 2020 8:51am May 15, 2021 3:32pm ergocalciferol 1.25 mg oral capsule (20 sources) Provitamin D2 Compound Start: 04-30-2020 End: 12-09-2024 Ergocalciferol (Vitamin D2) 1,250 mcg (50,000 unit) capsule Discontinued 34795 U PO EVERY WEEK 20 August 30, 2024 10:14am December 09, 2024 11:54am Start: 02-18-2019 End: 02-23-2023 Ergocalciferol (Vitamin D2) 50,000 unit capsule Discontinued 50075 U PO EVERY WEEK February 18, 2019 1:00am April 30, 2020 12:34pm Flucelvax Quad 7699-5721 (PF) (flu vac qs 2020(2 yr up)CD(PF)) 60 mcg (15 mcg x (2 sources) Start: 12-19-2020 End: 12-19-2020 inject 15 ug by intramuscular injection once Flucelvax Quad (PF) (flu vac qs 2020(2 yr up)CD(PF)) 60 mcg (15 mcg x Discontinued 0.5 ML IM ONCE 0.5 December 19, 2020 3:52pm December 19, 2020 4:37pm FLUoxetine 40 mg oral capsule (20 sources) Serotonin Reuptake Inhibitor Start: 03-04-2022 End: 12-09-2024 take 1 capsule by mouth once daily in the morning Fluoxetine 40 mg capsule Discontinued 0 .ROUTE .COMPLEX 90 August 22, 2024 1:21pm December 09, 2024 11:54am TAKE 1 CAPSULE BY MOUTH ONCE DAILY IN THE MORNING. TAKE IN ADDITION TO THE 20MG CAPSULE FOR A TOTAL DAILY DOSE OF 60MG. Start: 05-16-2020 End: 12-09-2024 take 1 capsule by mouth once daily Fluoxetine (Prozac) 20 mg capsule Discontinued 20 mg PO DAILY August 22, 2024 1:21pm December 09, 2024 11:54am Start: 05-16-2020 End: 03-19-2023 Fluoxetine 40 mg capsule Discontinued 40 mg PO EVERY MORNING 90 May 15, 2021 4:55pm March 04, 2022 6:48pm Take with 20 mg capsule for a total dose of 60mg Start: 09-12-2019 End: 05-16-2020 take 3 capsules by mouth once daily Fluoxetine (Prozac) 20 mg capsule Discontinued 60 mg PO DAILY 90 April 30, 2020 12:33pm May 16, 2020 4:56pm Start: 02-18-2019 End: 09-12-2019 take 1 capsule by mouth once daily Fluoxetine (Prozac) 20 mg capsule Discontinued 20 mg PO DAILY February 18, 2019 1:00am September 12, 2019 1:05pm fluticasone propionate 0.05 mg/actuat metered dose nasal spray (14 sources) Corticosteroid Start: 2022 End: 07-23-2022 take 50 ug nasal route twice daily Fluticasone Propionate (Flonase Allergy Relief) 50 mcg/actuation spray,suspension Discontinued 1 NMA INTRANASAL TWICE A DAY 16 2022 1:00am July 23, 2022 3:18pm administer [...] Vitamin B12 Start: 02-18-2019 End: 05-16-2020 Vitamin K86-Ppyjf Acid 500-400 mcg tablet Discontinued 1 {tbl} PO DAILY 90 April 30, 2020 12:34pm May 16, 2020 4:37pm Start: 02-18-2019 End: 05-16-2020 take 1 tablet by mouth once daily Vitamin T98-Jnott Acid Discontinued 1 TABLET PO DAILY April 30, 2020 12:34pm May 16, 2020 4:37pm hydroCHLOROthiazide 25 mg oral tablet (20 sources) Thiazide Diuretic Start: 09-12-2019 End: 12-09-2024 Hydrochlorothiazide 25 mg tablet Discontinued 12.5 mg PO DAILY 90 1 February 15, 2024 9:38am December 09, 2024 11:54am Start: 09-12-2019 End: 09-08-2022 take 12.5 mg by mouth once daily Hydrochlorothiazide Discontinued 12.5 MG PO DAILY 90 December 25, 2020 8:51am May 15, 2021 4:55pm Start: 02-18-2019 End: 09-12-2019 take 1 tablet by mouth once daily Hydrochlorothiazide 25 mg tablet Discontinued 25 mg PO DAILY February 18, 2019 1:00am September 12, 2019 1:05pm hydrocortisone 25 mg/ml topical cream (10 sources) Corticosteroid Start: 12-25-2023 End: 12-09-2024 Hydrocortisone 2.5 % cream Discontinued 1 NMA TOPICAL TWICE A DAY as needed for rash 28.35 1 December 25, 2023 12:00am December 09, 2024 11:24am 3 ml liraglutide 6 mg/ml pen injector (10 sources) GLP-1 Receptor Agonist Start: 09-18-2023 End: 12-25-2023 Liraglutide (Victoza 2-Matty) 0.6 mg/0.1 mL (18 mg/3 mL) pen injector Discontinued 1.2 mg SC DAILY 6 30 2 September 18, 2023 12:00am December 25, 2023 2:27pm meloxicam 15 mg oral tablet (20 sources) Nonsteroidal Anti-inflammatory Drug Start: 06-12-2023 End: 12-09-2024 Meloxicam 15 mg tablet Discontinued 15 mg PO DAILY as needed for pain 30 August 17, 2023 5:24pm December 09, 2024 11:24am Take daily for 5-7 days then just as needed. 24 hr metFORMIN hydrochloride 500 mg extended release oral tablet (20 sources) Biguanide Start: 11-14-2022 End: 12-09-2024 take 1 tablet by mouth twice daily Metformin 500 mg tablet extended release 24 hr Discontinued 500 mg PO TWICE A DAY 180 2 August 10, 2024 12:59pm December 09, 2024 11:54am Start: 08-23-2021 End: 11-14-2022 take 4 tablets by mouth once daily Metformin 500 mg tablet extended release 24 hr Discontinued 0 .ROUTE .COMPLEX 360 0 March 04, 2022 6:48pm November 14, 2022 [...] hr Discontinued 2000 mg PO DAILY 360 90 2 May 15, 2021 3:43pm August 23, 2021 2:50pm Start: 05-15-2021 End: 08-23-2021 take 2000 mg by mouth once daily Metformin Discontinued 2000 MG PO DAILY 360 90 May 15, 2021 3:43pm August 23, 2021 [...] hr Discontinued 500 mg PO EVERY EVENING 90 2 May 16, 2020 1:00am September 12, 2020 3:40pm Start: 09-14-2019 End: 05-16-2020 take 1 tablet by mouth twice daily Metformin 500 mg tablet Discontinued 500 mg PO TWICE A DAY 180 2 April 30, 2020 12:33pm May 16, 2020 4:42pm Nirmatrelvir-Ritonavir (14 sources) Start: 2022 End: 07-23-2022 Nirmatrelvir-Ritonavir (Paxl ovid (Eua)) 300 mg (150 mg x 2)-100 mg tablets,dose pack Discontinued 0 PO .COMPLEX 30 2022 1:00am July 23, 2022 3:19pm take TWO 150 mg tablets of nirmatrelvir with ONE 100 mg tablet of ritonavir twice daily for 5 days PO Start: 2022 End: 07-23-2022 Nirmatrelvir-Ritonavir (Paxl ovid (Eua)) 300 mg (150 mg x 2)-100 mg tablets,dose pack Discontinued 0 PO .COMPLEX 2022 1:00am July 23, 2022 3:19pm take TWO 150 mg tablets of nirmatrelvir with ONE 100 mg tablet of ritonavir twice daily for 5 days PO ondansetron 4 mg disintegrating oral tablet (14 sources) Serotonin-3 Receptor Antagonist Start: 04-10-2022 End: 07-23-2022 take 1 tablet by mouth every eight hours as needed for nausea and vomiting Ondansetron 4 mg tablet,disintegrating Discontinued 4 mg PO Q8H as needed for nausea and vomiting 30 0 April 10, 2022 1:00am July 23, 2022 3:19pm potassium chloride 20 meq extended release oral tablet (20 sources) Start: 05-17-2020 End: 12-09-2024 take 1 tablet by mouth twice daily Potassium Chloride 20 mEq tablet extended release Discontinued 20 meq PO TWICE A DAY 180 3 August 22, 2024 1:21pm December 09, 2024 4:56pm Start: 02-18-2019 End: 05-17-2020 take 1 tablet by mouth once daily Potassium Chloride 20 mEq tablet extended release Discontinued 20 meq PO DAILY February 18, 2019 1:00am May 17, 2020 2:07pm semaglutide 7 mg oral tablet (16 sources) Start: 09-18-2023 End: 09-18-2023 take 1 tablet by mouth once daily Semaglutide 7 mg tablet Discontinued 7 mg PO DAILY 30 3 September 18, 2023 12:00am September 18, 2023 3:47pm Start: 11-14-2022 End: 02-20-2023 take 1 tablet by mouth once daily Semaglutide (Rybelsus) 3 mg tablet Discontinued 3 mg PO DAILY 30 30 1 November 14, 2022 12:00am February 20, 2023 4:28pm Semaglutide 7 mg tablet (7 sources) Start: 09-18-2023 End: 09-18-2023 take 1 tablet by mouth once daily Semaglutide 7 mg tablet Discontinued 7 mg PO DAILY 30 3 September 18, 2023 12:00am September 18, 2023 3:47pm Start: 09-18-2023 End: 09-18-2023 take 1 tablet by mouth once daily Semaglutide 7 mg tablet Discontinued 7 mg PO DAILY 30 September 18, 2023 12:00am September 18, 2023 3:47pm Tirzepatide (12 sources) Start: 06-12-2023 End: 09-18-2023 Tirzepatide 2.5 mg/0.5 mL pe n injector Discontinued 2.5 mg SC EVERY WEEK 2 28 2 June 12, 2023 4:04pm September 18, 2023 3:15pm Start: 04-27-2023 End: 06-12-2023 Tirzepatide 2.5 mg/0.5 mL pe n injector Discontinued 2.5 mg SC EVERY WEEK 2 28 2 April 27, 2023 2:09pm June 12, 2023 4:04pm Start: 03-27-2023 End: 04-02-2023 Tirzepatide 2.5 mg/0.5 mL pe n injector Discontinued 2.5 mg SC EVERY WEEK 2 28 0 March 27, 2023 5:02pm April 23, 2023 1:00am April 02, 2023 3:17pm Start: 02-20-2023 End: 03-20-2023 Tirzepatide 2.5 mg/0.5 mL pe n injector Discontinued 2.5 mg SC EVERY WEEK 2 0 February 20, 2023 1:00am March 19, 2023 1:00am March 20, 2023 1:05am Tirzepatide (3 sources) Start: 04-02-2023 End: 04-27-2023 Tirzepatide 5 mg/0.5 mL pen injector Discontinued 5 mg SC EVERY WEEK 2 2 April 02, 2023 3:16pm April 27, 2023 2:09pm Tirzepatide (Weight Loss) (10 sources) Start: 12-28-2023 End: 07-06-2024 Tirzepatide (Weight Loss) (Z epbound) 2.5 mg/0.5 mL pen injector Discontinued 2.5 mg SC EVERY WEEK 2 0 December 28, 2023 12:00am July 06, 2024 11:18am for 4 weeks Start: 12-28-2023 End: 07-06-2024 Tirzepatide (Weight Loss) (Z epbound) 2.5 mg/0.5 mL pen injector Discontinued 2.5 mg SC EVERY WEEK 2 December 28, 2023 12:00am July 06, 2024 11:18am for 4 weeks Start: 12-28-2023 Tirzepatide (W eight Loss) (Zepbound) 2.5 mg/0.5 mL pen injector Active 2.5 mg SC EVERY WEEK December 28, 2023 12:00am for 4 weeks Tirzepatide 2.5 mg/0.5 mL pe n injector (20 sources) Start: 06-12-2023 End: 09-18-2023 Tirzepatide 2.5 mg/0.5 mL pe n injector Discontinued 2.5 mg SC EVERY WEEK 2 03 06June 12, 2023 4:04pm September 18, 2023 3:15pm Start: 06-12-2023 End: 09-18-2023 Tirzepatide 2.5 mg/0.5 mL pe n injector Discontinued 2.5 mg SC EVERY WEEK 2 June 12, 2023 4:04pm September 18, 2023 3:15pm Start: 04-27-2023 End: 06-12-2023 Tirzepatide 2.5 mg/0.5 mL pe n injector Discontinued 2.5 mg SC EVERY WEEK April 27, 2023 2:09pm June 12, 2023 4:04pm Start: 04-27-2023 End: 06-12-2023 Tirzepatide 2.5 mg/0.5 mL pe n injector Discontinued 2.5 mg SC EVERY WEEK 2 April 27, 2023 2:09pm June 12, 2023 4:04pm Start: 03-27-2023 End: 04-02-2023 Tirzepatide 2.5 mg/0.5 mL pe n injector Discontinued 2.5 mg SC EVERY WEEK March 27, 2023 5:02pm April 23, 2023 1:00am April 02, 2023 3:17pm Start: 03-27-2023 End: 04-02-2023 Tirzepatide 2.5 mg/0.5 mL pe n injector Discontinued 2.5 mg SC EVERY WEEK 2 March 27, 2023 5:02pm April 23, 2023 1:00am April 02, 2023 3:17pm Start: 02-20-2023 End: 03-20-2023 Tirzepatide 2.5 mg/0.5 mL pe n injector Discontinued 2.5 mg SC EVERY WEEK 2 February 20, 2023 1:00am March 19, 2023 1:00am March 20, 2023 1:05am Start: 02-20-2023 End: 03-20-2023 Tirzepatide 2.5 mg/0.5 mL pe n injector Discontinued 2.5 mg SC EVERY WEEK 2 February 20, 2023 1:00am March 19, 2023 1:00am March 20, 2023 1:05am Tirzepatide 5 mg/0.5 mL pen injector (7 sources) Start: 04-02-2023 End: 04-27-2023 Tirzepatide 5 mg/0.5 mL pen injector Discontinued 5 mg SC EVERY WEEK April 02, 2023 3:16pm April 27, 2023 2:09pm Start: 04-02-2023 End: 04-27-2023 Tirzepatide 5 mg/0.5 mL pen injector Discontinued 5 mg SC EVERY WEEK 2 April 02, 2023 3:16pm April 27, 2023 2:09pm topiramate 100 mg oral tablet (20 sources) Start: 02-18-2019 End: 12-09-2024 take 1 tablet by mouth twice daily Topiramate (Topamax) 100 mg tablet Discontinued 100 mg PO TWICE A DAY 180 December 28, 2023 10:10am December 09, 2024 11:54am Problems Problem Classification Problem Date Documented Da te Episodic/Chronic Allergic reactions (10 sources) Inflammatory dermatosis; Translations: [Dermatitis, unspecified] 12-25-2023 Episodic Anxiety disorders (20 sources) Mixed anxiety and depressive disorder; Translations: [Anxiety disorder, unspecified] Chronic Diabetes mellitus with complications (1 source) Type 2 diabetes mellitus with other specified complication; Translations: [Type 2 diabetes mellitus with other specified complication] Onset: Chronic Diabetes mellitus without complication (20 sources) Type 2 diabetes mellitus; Translations: [Type 2 diabetes mellitus without complications] Chronic Diabetes mellitus without complication (17 sources) Prediabetes; Translations: [Prediabetes] 09-14-2019 Episodic Esophageal disorders (4 sources) Gastroesophageal reflux disease; Translations: [Gastro-esophageal reflux disease without esophagitis] 01-06-2025 Chronic Essential hypertension (20 sources) Hypertensive disorder; Translations: [Essential (primary) hypertension] Onset: 5 Chronic Fluid and electrolyte disorders (20 sources) Hypokalemia; Translations: [Hypokalemia] Onset: 5 06-12-2023 Episodic Immunizations and screening for infectious disease (19 sources) Needs influenza immunization; Translations: [Encounter for immunization] Onset: 5 12-19-2020 Episodic Mood disorders (20 sources) Major depressive disorder; Translations: [Major depressive disorder, single episode, unspecified] 02-18-2019 Chronic Nutritional deficiencies (16 sources) Vitamin D deficiency; Translations: [Vitamin D deficiency, unspecified] Chronic Osteoarthritis (14 sources) Osteoarthrosis of the carpometacarpal joint of the thumb; Translations: [Unilateral primary osteoarthritis of first carpometacarpal joint, left hand] 08-05-2022 Chronic Other connective tissue disease (11 sources) Pain in thumb ; Translations: [Pain in left finger(s)] 07-23-2022 Episodic Other connective tissue disease (3 sources) Pain in left finger(s); Translations: [Pain in limb] 07-23-2022 Episodic Other connective tissue disease (3 sources) Pain in left thumb; Translations: [Pain in left finger(s)] 07-23-2022 Episodic Other gastrointestinal disorders (10 sources) Altered bowel function; Translations: [Change in bowel habit] 12-09-2024 Episodic Other gastrointestinal disorders (1 source) Change in bowel habit; Translations: [Change in bowel habit] Onset: 5 Episodic Other lower respiratory disease (17 sources) Postviral cough; Translations: [Post-viral cough syndrome] 12-19-2020 Episodic Other non-traumatic joint disorders (12 sources) Pain in elbow; Translations: [Pain in right elbow] 06-12-2023 Episodic Other non-traumatic joint disorders (2 sources) Pain in right elbow; Translations: [Pain in joint, upper arm] 06-12-2023 Episodic Other nutritional; endocrine; and metabolic disorders (4 sources) Simple obesity ; Translations: [Other obesity due to excess calories] 02-18-2019 Chronic Other nutritional; endocrine; and metabolic disorders (20 sources) Body mass index 40+ - severely obese; Translations: [Body mass index (BMI) 40.0-44.9, adult] 02-18-2019 Chronic Other nutritional; endocrine; and metabolic disorders (13 sources) Obesity caused by energy imbalance; Translations: [Other obesity due to excess calories] 02-18-2019 Chronic Other nutritional; endocrine; and metabolic disorders (6 sources) Body mass index (BMI) 40.0-44.9, adult; Translations: [Body Mass Index 40.0-44.9, adult] 11-14-2022 Chronic Other nutritional; endocrine; and metabolic disorders (18 sources) Obesity; Translations: [Obesity, unspecified] 03-02-2024 Chronic Other screening for suspected conditions (not mental disorders or infectious disease) (20 sources) Patient encounter status; Translations: [Encounter for screening for other suspected endocrine disorder] Onset: 5 Episodic Other upper respiratory infections (14 sources) Upper respiratory infection; Translations: [Acute upper respiratory infection, unspecified] 11-14-2022 Episodic Rehabilitation care; fitting of prostheses; and adjustment of devices (1 source) Encounter for fitting and adjustment of other specified devices; Translations: [Encounter for fitting and adjustment of other specified devices] Onset: 5 Chronic Residual codes; unclassified (20 sources) Obstructive sleep apnea syndrome; Translations: [Obstructive sleep apnea (adult) (pediatric)] 02-18-2019 Chronic Residual codes; unclassified (2 sources) Obstructive sleep apnea (adult) (pediatric); Translations: [Obstructive sleep apnea (adult) (pediatric)] Onset: 5 Chronic Residual codes; unclassified (8 sources) Insomnia; Translations: [Insomnia, unspecified] 12-09-2024 Episodic Spondylosis; intervertebral disc disorders; other back problems (20 sources) Backache; Translations: [Dorsalgia, unspecified] Episodic Unclassified (2 sources) Altered bowel habits Unclassified (7 sources) R19.4 - Change in bowel habit Viral infection (17 sources) Disease caused by 2019-nCoV; Translations: [COVID-19] 11-15-2020 Episodic Comment on above: 11/03/20 Results Test Name Value Interpretation Reference Range Facility Pulmonary Visit Reporton Pulmonary Visit Report [facility] [address] [place] [address] OFFICE VISIT Date of Service: 01/18/25 MR#: [id number] Acct: [id number] Name: LINNEA FLYNN Rep #: [id number] : 1965 Provider: Francesca Baumann NP Age/Sex: 59/F Location: [facility] Status: Signed Assessment and Plan Assessment and Plan (1) OSMIN (obstructive sleep apnea): Status: Chronic Plan: The apnea appears to be well-controlled along with a nocturnal oxygenation. I have recommended that she work with RT for PAP education and mask fit and also for the RT to look over her device to determine if it is functioning properly as the BiPAP device may be broken. It appears that there is a significant noise coming from the device and it is disturbing her sleep onset. If the device is outdated and need replaced then a prescription will be sent to her vendor to receive a replacement device. The patient is agreeable to proceed in this direction although she does have some hesitancy due to the concerns for bmx-to-ozbjcz costs for a new device with the current insurance plan. The patient understands the importance of treating sleep apnea and has been compliant with therapy. At this point I recommend a 6-month follow-up. The patient understands that she should advance her follow-up if she has worsening symptoms or is not able to use her PAP therapy. (2) Major depressive disorder: Status: Chronic Qualifiers: Active/Remission status: remission status unspecified Major depression recurrence: unspecified whether recurrent Qualified Code(s): F32.9 - Major depressive disorder, single episode, unspecified Plan: Complicates exam, plan, care and prognosis. Continue to work on optimizing sleep as it can worsen her mood. (3) Obesity: Status: Chronic Qualifiers: Body mass index: BMI 39.0-39.9 Obesity classification: adult class 2 (BMI 35 - 39.9) Obesity type: due to excess calories Serious obesity comorbidity presence: with serious comorbidity Qualified Code(s): E66.812 - Obesity, class 2; E66.01 - Morbid (severe) obesity due to excess calories; Z68.39 - Body mass index [BMI] 39.0-39.9, adult Plan: Weight loss is warranted through prudent dieting and daily exercise. Orders: Orders Self Mgmnt Educ Training 02/02/25 G47.33 - Obstructive sleep apnea (adult) (pediatric) Plan Details Follow Up: 6 Months (LMR) HPI HPI Comments Details: Patient is a 59-year-old female who presents today for follow-up of sleep apnea. She is ambulatory and currently on room air. She has not recently been seen in the ED or urgent care for any respiratory illness. She has not required any antibiotics or prednisone for breathing problems. She is using her PAP device. She reports that she occasionally feels rested. She does nap on occasions. She does experience significant oral dryness. She reports she is using a nasal mask. She indicates that she is not able to use a fullface style mask. She does have occasional headaches in the morning. She denies nocturia. Her mask is leaking as she is seeing a red frown in the morning but she does not feel like it is coming from her mask but from her machine. She reports that her machine is sounding loud. Like there is a fan blowing. She continues to feel frustrated about the noise coming from the machine. She reports that it is difficult for her to fall asleep with this noise. She has worked with RT and trialed a different mask but reports that it was not better than the previous mask that she was using. Documentation reviewed with patient today includes: Nocturnal oximetry from October 03, 2024 shows an average saturation of 96.23% and 0 time below 88%. Compliance download from January 16, 2025 shows 97% compliance with therapy, using the device 7 hours and 11 minutes nightly average. She has a BiPAP at 18 over 14 cm. There is a large air leak present but AHI is 2.3. The patient did work with RT 09/15/2024 for mask fit. Intake Vital Signs 12/09/24 12:33 01/18/25 08:30 Height 5 ft 4 in 5 ft 4 in Weight: 215 lb BMI 36.8 BP 121/75 H Blood Pressure Location Rt brachial Position Sitting Respiration 20 H Pulse 66 Pulse Source Monitor Temp 97.5 F L Temperature Source Temporal Artery Pulse Oximetry (%) 95 Oxygen Delivery Method room air Intake Visit Reasons: 4 M FU Data Security Analyst Required: No DME Vendor: [employer] Accompanied by: Self Is patient in pain?: No Allergies No Known Allergies Allergy (Verified 01/18/25 14:25) Medications ???Medication ???Instructions ???Recorded ???Confirmed ???Type multivitamin with iron (Daily 1 tab PO DAILY 09/14/19 01/18/25 H istory Vitamin with Iron tablet) blood sugar diagnostic #50 ea 11/16/19 01/18/25 Rx ergocalciferol (vitamin D2) 1,250 50,000 unit PO QWEEK #12 (more content not included)... Normal [facility] Surgery Visit Reporton 01-05 Surgery Visit Report [facility] [address] [place] [address] OFFICE VISIT Date of Service: 01/05/25 MR#: [id number] Acct: [id number] Name: LINNEA FLYNN Rep #: [id number] : 1965 Provider: Dr. Karen miranda MD Age/Sex: 59/F Location: [facility] Status: Signed Intake Vital Signs 12/09/24 12:33 01/05/25 13:02 Height 5 ft 4 in 5 ft 4 in Weight: 218 lb BMI 37.4 BP 116/78 Blood Pressure Location Rt brachial Position Sitting Respiration 16 Intake Visit Reasons: CHANGE IN BOWELS Chief Complaint: change in bowels Data Security Analyst Required: No Is patient in pain?: No Allergies No Known Allergies Allergy (Verified 01/05/25 13:03) Medications ???Medication ???Instructions ???Recorded ???Confirmed ???Type multivitamin with iron (Daily 1 tab PO DAILY 09/14/19 01/05/25 H istory Vitamin with Iron tablet) blood sugar diagnostic #50 ea 11/16/19 01/05/25 Rx ergocalciferol (vitamin D2) 1,250 50,000 unit PO QWEEK #12 caps 08/2801/05/25 Rx mcg (50,000 unit) capsule fluoxetine 20 mg capsule (Prozac) 20 mg PO DAILY #90 caps 12/09/24 01/05/25 Rx fluoxetine 40 mg capsule See Rx Instructions .Route 5 01/05/25 Rx .COMPLEX #90 caps hydrochlorothiazide 25 mg tablet 12.5 mg (1/2 x 25 mg) PO DAILY #45 12/09/24 01/05/25 Rx tabs iron-vitamin B complex with C 27 tab PO DAILY 12/09/24 01/05/25 His tory mg-300 mg tablet melatonin 10 mg capsule 10 mg PO HS PRN 12/09/24 01/05/25 History metformin 500 mg tablet,extended 500 mg PO BID #180 tabs 12/09/24 1 Rx release 24 hr omeprazole magnesium 20 mg 20 mg PO DAILY #90 tabs 12/09/24 1 Rx tablet,delayed release (Prilosec OTC) potassium chloride 20 mEq 20 meq PO BID #180 tabs 12/09/24 1 Rx tablet,extended release rhubarb root extract 4 mg tablet mg PO DAILY 12/09/24 01/05/25 Hist ory (Estroven Complete Menopause Relief) topiramate 100 mg tablet (Topamax) 100 mg PO BID #180 tabs 12/09/24 01/05/25 Rx trazodone 50 mg tablet 25 mg (1/2 x 50 mg) PO QHS PRN 08/2801/05/25 Rx insomnia #30 tabs semaglutide (weight loss) 0.25 0.25 mg subcut QWEEK 01/05/2505/31 History mg/0.5 mL subcutaneous pen injector Have you fallen in the past year?: No PFSH Medical History Insomnia High anion gap Dermatitis Right elbow pain Hypokalemia URI (upper [...] use type: does not use HPI HPI HPI: 59-year-old female presents due to change of bowel habits. Patient states that since she has been having diarrhea. Typically she will have no bowel movement for 2 or 3 days and then start having diarrhea. Patient did state that today she had a normal formed stool. Patient has also been on omeprazole 20 mg p.o. daily for about 3 years denies any symptoms previous symptoms were burning up her esophagus. Patient states she did get a Cologuard less than a year ago that was negative. Patient states recently she has been under increased stress as she was caring for her stepdad who did of colon cancer recently. Patient does admit to having some mid abdominal/left-sided abdominal pain when she has constipation. Patient has not tried any laxatives. Patient is unsure exactly how much fiber she gets daily. ROS General General: Yes weight change and fatigue; No appetite, colon cancer or breast cancer HEENT HEENT: No difficulty swallowing, eye injury, eye surgery, swollen glands or hoarseness Endo Endocrine: No thyroid disease, diabetes mellitus, thyroid cancer, Hair loss, heat intolerance or cold intolerance Skin Skin: No rash or changing moles Musc Musculoskeletal: Yes back problems; No arthritis, rheumatoid arthritis, gout or joint pain Cardio Cardiovascula (more content not included)... Normal [facility] Breast imaging reportOrdered By: Vira Rodriguez on 12-30-2024 Study report [facility] Imaging Services [address] [place], [place] [address] SCRN MAMM (CAD)W/ANAIS BILAT MR#: [id number] Acct: [id number] Name: LINNEA FLYNN Rep #: [id number] : 1965 F 59 From: Karen Rodriguez MD PCP: Dr. Jess White MD Status: R EG CLI Study:SCRN MAMM (CAD)W/ANAIS BILAT Date of Exa m: 12/29/24 Exam# [id number] Ordering Dr: Mayo Goldstein PA EXAM: SCRN MAMM (CAD)W/ANAIS BILAT DATE: 12/29/2024 CLINICAL HISTORY: F, Age 59 y/o , BREAST CANCER SCREENING TECHNIQUE: Procedure Code: BISMWCADBTOM Modality: MG Procedure: SCRN MAMM (CAD)W/ANAIS BILAT COMPARISON: Prior exam(s) dated 10/09/2023, 09/09/2022, 09/03/2021. FINDINGS: TISSUE DENSITY: There are scattered areas of fibroglandular density. Bilateral Breast Mammographic Findings: No significant masses, calcifications or other abnormalities are identified. BI/SCRN MAMM (CAD)W/ANAIS BILAT IMPRESSION: There is no mammographic evidence of malignancy. OVERALL FINAL ASSESSMENT BI-RADS 1: NEGATIVE. RECOMMENDATION: Routine annual follow-up in 1 Year Additional Recommendation none A letter with findings and recommendations will be mailed to the patient. Reading Location: [facility] CC: Dr. Jess White MD; DAGO Martinez ~ Manager Rn Case: Signed [facility] SCRN MAMM (CAD)W/ANAIS BILATo n 12-29-2024 SCRN MAMM (CAD)W/ANAIS BILAT [facility] Imaging Services [address] [place] [address] SCRN MAMM (CAD)W/ANAIS BILAT MR#: [id number] Acct: [id number] Name: LINNEA FLYNN Rep #: [id number] : 1965 F 59 From: Vira Rodriguez MD PCP: Dr. Jess White MD Status: REG CLI Study: SCRN MAMM (CAD)W/ANAIS BILAT Date of Exam: 12/06 08/28 Exam# [id number] Ordering Dr: Campos Goldstein EXAM: SCRN MAMM (CAD)W/ANAIS BILAT DATE: 12/29/2024 CLINICAL HISTORY: F, Age 59 y/o , BREAST CANCER SCREENING TECHNIQUE: Procedure Code: BISMWCADBTOM Modality: MG Procedure: SCRN MAMM (CAD)W/ANAIS BILAT COMPARISON: Prior exam(s) dated 10/09/2023, 09/09/2022, 09/03/2021. FINDINGS: TISSUE DENSITY: There are scattered areas of fibroglandular density. Bilateral Breast Mammographic Findings: No significant masses, calcifications or other abnormalities are identified. BI/SCRN MAMM (CAD)W/ANAIS BILAT IMPRESSION: There is no mammographic evidence of malignancy. OVERALL FINAL ASSESSMENT BI-RADS 1: NEGATIVE. RECOMMENDATION: Routine annual follow-up in 1 Year Additional Recommendation none A letter with findings and recommendations will be mailed to the patient. Reading Location: [id number] CC: Dr. Jess White MD; DAGO Martinez Manager Rn Case: Signed Normal [facility] Internal Medicine Office Vis itolala 12-09-2024 Internal Medicine Office Visit [facility] [address] [place] [address] [address] [place] [address] OFFICE VISIT Date of Service: 12/09/24 MR#: [id number] Acct: [id number] Name: LINNEA FLYNN Rep #: [id number] : 1965 Provider: DAGO Martinez Age/Sex: 59/F Location: [facility] Status: Signed with Addenda ADDENDUM by PEDRO Byers on 12/13/24 at 1100 HPI Details: LINNEA FLYNN, is a 59 F who presents to the office today for Assessment and Plan Assessment and Plan (1) Colon cancer screening: Status: Acute (2) Breast cancer screening: Status: Acute Qualifiers: Breast cancer screening modality: mammogram Qualified Code(s): Z12.31 - Encounter for screening mammogram for malignant neoplasm of breast (3) Anxiety and depression: Status: Chronic (4) High anion gap: Status: Acute (5) Insomnia: Status: Acute Qualifiers: Insomnia type: unspecified Qualified Code(s): G47.00 - Insomnia, unspecified Orders: Orders SCRN MAMM (CAD)W/ANAIS BILAT 12/09/24 Z12.39 - Encounter for other screening for malignant neoplasm of breast Colonoscopy 12/09/24 Z12.11 - Encounter for screening for malignant neoplasm of colon Influenza Immunization 12/09/24 Z23 - Encounter for immunization Referrals General Surgery R19.4 - Change in bowel habit Medications: New omeprazole magnesium (Prilosec OTC) 20 mg PO DAILY 90 tabs 1RF trazodone 25 mg (1/2 x 50 mg) PO QHS PRN 30 tabs 0RF insomnia flu vac ts 2023(6 ms up)CD(PF) 0.5 mL IM ONCE 0.5 mL 0RF Z23 - Encounter for immunization Refilled fluoxetine (Prozac) 20 mg PO DAILY 90 caps 1RF fluoxetine TAKE 1 CAPSULE BY MOUTH ONCE DAILY IN THE MORNING. TAKE IN ADDITION TO THE 20MG CAPSULE FOR A TOTAL DAILY DOSE OF 60MG. 90 caps 1RF hydrochlorothiazide 12.5 mg (1/2 x 25 mg) PO DAILY 45 tabs 1RF metformin ER 500 mg PO BID 180 tabs 1RF topiramate (Topamax) 100 mg PO BID 180 tabs 1RF ergocalciferol (vitamin D2) 50,000 units PO QWEEK 12 caps 1RF 12/13/24 1255 Date Campos Goldstein cc: * Signed Intake Vital Signs 07/06/24 11:08 08/31/24 07:51 12/09/24 11:29 Height 5 ft 4 in 5 ft 4 in 5 ft 4 in Weight: 218 lb BMI 37.4 BP 138/92 H Blood Pressure Location Lt brachial Position Sitting Respiration 16 Pulse 73 Pulse Source Monitor Temp 98.3 F Temp Source Temporal Pulse Oximetry (%) 95 Oxygen Delivery Method room air Intake Visit Reasons: 5 M Chief Complaint: 5 M FU Is patient in pain?: No Allergies No Known Allergies Allergy (Verified 12/09/24 11:23) Medications ???Medication ???Instructions ???Recorded ???Confirmed ???Type multivitamin with iron (Daily 1 tab PO DAILY 09/14/19 12/09/24 H istory Vitamin with Iron tablet) blood sugar diagnostic #50 ea 11/16/19 12/09/24 Rx ergocalciferol (vitamin D2) 1,250 50,000 unit PO QWEEK #12 caps 08/2812/09/24 Rx mcg (50,000 unit) capsule fluoxetine 20 mg capsule (Prozac) 20 mg PO DAILY #90 caps 12/09/24 12/09/24 Rx fluoxetine 40 mg capsule See Rx Instructions .Route 5 12/09/24 Rx .COMPLEX #90 caps hydrochlorothiazide 25 mg tablet 12.5 mg (1/2 x 25 mg) PO DAILY #45 12/09/24 12/09/24 Rx tabs iron-vitamin B complex with C 27 tab PO DAILY 12/09/24 12/09/24 His tory mg-300 mg tablet melatonin 10 mg capsule 10 mg PO HS PRN 12/09/24 12/09/24 History metformin 500 mg tablet,extended 500 mg PO BID #180 tabs 12/09/24 0 12/09/24 Rx release 24 hr omeprazole magnesium 20 mg 20 mg PO DAILY #90 tabs 12/09/24 0 12/09/24 Rx tablet,delayed release (Prilosec OTC) potassium chloride 20 mEq 20 meq PO BID #180 tabs 12/09/24 Rx tablet,extended release rhubarb root extract 4 mg tablet mg PO DAILY 12/09/24 12/09/24 Hist ory (Estroven Complete Menopause Relief) topiramate 100 mg tablet (Topamax) 100 mg PO BID #180 tabs 12/09/24 12/09/24 Rx trazodone 50 mg tablet 25 mg (1/2 x 50 mg) PO QHS PRN 08/2812/09/24 Rx insomnia #30 tabs Have you fallen in the past year?: No Nurse's Note: REQUESTING MAMMOGRAM ORDER; REQUESTING FLU SHOT pt completed influenza vaccine consent form, signed and placed in scan bin pt denies any issues with past influenza vaccines pt denies any known allergies to influenza vaccines requested right deltoid for administration Lot [id number] Exp August 13, 2025 [place] [address]-471-74 MFD: Rupert unable to document NDC in [employer]. information officer Vero notified. [facility] Medical History (Updated 12/10/24 @ 14:37 by Campos LOZA, PA) Insomnia High anion gap Dermatitis Right elbow pain Hypokalemia URI (upper respiratory infection) Osteoarthritis of carpometacarpal joint of left thumb Pain of left thumb Musculoskeletal back pain Screening for thyroid disorder (more content not included)... Normal [facility] Anion gap in Serum or Plasma Ordered By: Jess White on 12-02-2024 Anion gap [Moles/Vol] 14 mmol/L 5-15 [facility] BUN/creatinine ratioOrdered By: Jess White on 12-02-2024 Urea nitrogen/Creatinine [Mass ratio] 20.5 mg/mg High 10-20 [facility] Basic Metabolic Profile (BMP )on 12-02-2024 BUN/CRE 20.5 RATIO High - [facility] Comment on above: Performed By: #### L 500.2500, L501.6901 ####[facility] [address] [place], [address] Calcium [Mass/Vol] 10.0 mg/dL Normal 7.6-11.0 [facility] Comment on above: Performed By: #### L 500.2500, L501.6901 ####[facility] [address] [place], [address] Chloride [Moles/Vol] 104 mmol/L Normal 98-108 [facility] Comment on above: Performed By: #### L 500.2500, L501.6901 ####[facility] [address] [place], [address] CO2 [Moles/Vol] 21.9 mmol/L Normal 21.0-32.0 [facility] Comment on above: Performed By: #### L 500.2500, L501.6901 ####[facility] [address] [place], [address] Creatinine [Mass/Vol] 0.67 mg/dL Low 0.70-1.20 [facility] Comment on above: Performed By: #### L 500.2500, L501.6901 ####[facility] [address] [place], [address] GAP 14 Normal 5-15 [facility] Comment on above: Performed By: #### L 500.2500, L501.6901 ####[facility] [address] [place], [address] GFR/1.73 sq M.predicted among non-blacks MDRD (S/P/Bld) [Vol rate/Area] 102 mL/min/{1.73_m2} Normal >60 [facility] Comment on above: Result Comment: mL/m in/1.73m2 CKD-EPI Creatinine Equation (2020) Performed By: #### L 500.2500, L501.6901 ####[facility] [address] [place], [address] Glucose [Mass/Vol] 108 mg/dL High 70-99 [facility] Comment on above: Performed By: #### L 500.2500, L501.6901 ####[facility] [address] [place], [address] Potassium [Moles/Vol] 4.1 mmol/L Normal 3.3-5.1 [facility] Comment on above: Performed By: #### L 500.2500, L501.6901 ####[facility] [address] [place], [address] Sodium [Moles/Vol] 140 mmol/L Normal 133-145 [facility] Comment on above: Performed By: #### L 500.2500, L501.6901 ####[facility] [address] [place], [address] Urea nitrogen [Mass/Vol] 14 mg/dL Normal 4-19 [facility] Comment on above: Performed By: #### L 500.2500, L501.6901 ####[facility] [address] [place], [address] Beta-Hydroxbytyrateon 08-29- 2025 BETA-HYDROXYBUT 0.3 mmol/L Normal 0.0-0.3 [facility] Comment on above: Performed By: #### L 500.2500, L501.6901 ####[facility] [address] [place], [address] Beta-hydroxybutyrateOrdered By: Jess White on 12-02-2024 Beta hydroxybutyrate [Mass/Vol] 0.3 mmol/L 0.0-0.3 [facility] Carbon dioxide, total [Moles /volume] in Central venous bloodOrdered By: Jess White on 12-02-2024 CO2 [Moles/Vol] 21.9 mmol/L 21.0-32.0 [facility] Chloride assayOrdered By: Lambert White on 12-02-2024 Chloride [Moles/Vol] 104 mmol/L 98-108 [facility] Glomerular filtration rate ( GFR) estimation/1.73 sq m using serum, plasma, or whole bOrdered By: Jess White on 12-02-2024 GFR/1.73 sq M.predicted among non-blacks MDRD (S/P/Bld) [Vol rate/Area] 102 mL/min/{1.73_m2} >60 [facility] Comment on above: mL/min/1.73m2 CKD-EP I Creatinine Equation (2020) Potassium measurement (mass/ volume)Ordered By: Jess White on 12-02-2024 Potassium (Unsp spec) [Mass/Vol] 4.1 mmol/L 3.3-5.1 [facility] Serum creatinine measurement (mass/volume)Ordered By: Jess White on 12-02-2024 Creatinine [Mass/Vol] 0.67 mg/dL Low 0.70-1.20 [facility] Serum glucose measurement (m ass/volume)Ordered By: Jess White on 12-02-2024 Glucose [Mass/Vol] 108 mg/dL High 70-99 [facility] Serum or plasma calcium eveline urement (mass/volume)Ordered By: Jess White on 12-02-2024 Calcium [Mass/Vol] 10.0 mg/dL 7.6-11.0 [facility] Serum or plasma urea nitroge n measurement (mass/volume)Ordered By: Jess White on 12-02-2024 Urea nitrogen [Mass/Vol] 14 mg/dL 4-19 [facility] Sodium levelOrdered By: Lambertsamy francisco Angeloorsa on 12-02-2024 Sodium [Moles/Vol] 140 mmol/L 133-145 [facility] Beta-Hydroxbytyrateon 2024 BETA-HYDROXYBUT 0.2 mmol/L Normal 0.0-0.3 [facility] Comment on above: Performed By: #### L 501.6901, L501.9520, L506.1001, L501.9985, L506.0400, L500.2500 ####[facility] [address] [place], [address] Anion gap in Serum or Plasma Ordered By: Jess White on 11-10-2024 Anion gap [Moles/Vol] 17 mmol/L High 5-15 [facility] BUN/creatinine ratioOrdered By: Jess Stephenssajanbryan on 11-10-2024 Urea nitrogen/Creatinine [Mass ratio] 18.1 mg/mg 10-20 [facility] Basic Metabolic Profile (BMP )on 11-10-2024 BUN/CRE 18.1 RATIO Normal - [facility] Comment on above: Performed By: #### L 501.6901, L501.9520, L506.1001, L501.9985, L506.0400, L500.2500 #### [facility] [address] [place], [address] Calcium [Mass/Vol] 10.3 mg/dL Normal 7.6-11.0 [facility] Comment on above: Performed By: #### L 501.6901, L501.9520, L506.1001, L501.9985, L506.0400, L500.2500 #### [facility] [address] [place], [address] Chloride [Moles/Vol] 103 mmol/L Normal 98-108 [facility] Comment on above: Performed By: #### L 501.6901, L501.9520, L506.1001, L501.9985, L506.0400, L500.2500 #### [facility] [address] [place], [address] CO2 [Moles/Vol] 19.9 mmol/L Low 21.0-32.0 [facility] Comment on above: Performed By: #### L 501.6901, L501.9520, L506.1001, L501.9985, L506.0400, L500.2500 #### [facility] [address] [place], [address] Creatinine [Mass/Vol] 0.71 mg/dL Normal 0.70-1.20 [facility] Comment on above: Performed By: #### L 501.6901, L501.9520, L506.1001, L501.9985, L506.0400, L500.2500 #### [facility] [address] [place], [address] GAP 17 High 5-15 [facility] Comment on above: Performed By: #### L 501.6901, L501.9520, L506.1001, L501.9985, L506.0400, L500.2500 #### [facility] [address] [place], [address] GFR/1.73 sq M.predicted among non-blacks MDRD (S/P/Bld) [Vol rate/Area] 100 mL/min/{1.73_m2} Normal >60 [facility] Comment on above: Result Comment: mL/m in/1.73m2 CKD-EPI Creatinine Equation (2020) Performed By: #### L 501.6901, L501.9520, L506.1001, L501.9985, L506.0400, L500.2500 #### [facility] [address] [place], [address] Glucose [Mass/Vol] 111 mg/dL High 70-99 [facility] Comment on above: Performed By: #### L 501.6901, L501.9520, L506.1001, L501.9985, L506.0400, L500.2500 #### [facility] Laboratory [address] [place], [address] Potassium [Moles/Vol] 3.7 mmol/L Normal 3.3-5.1 [facility] Comment on above: Performed By: #### L 501.6901, L501.9520, L506.1001, L501.9985, L506.0400, L500.2500 #### [facility] Laboratory [address] [place], [address] Sodium [Moles/Vol] 140 mmol/L Normal 133-145 [facility] Comment on above: Performed By: #### L 501.6901, L501.9520, L506.1001, L501.9985, L506.0400, L500.2500 #### [facility] Laboratory [address] [place], [address] Urea nitrogen [Mass/Vol] 13 mg/dL Normal 4-19 [facility] Comment on above: Performed By: #### L 501.6901, L501.9520, L506.1001, L501.9985, L506.0400, L500.2500 #### [facility] [address] [place], [address] Beta-hydroxybutyrateOrdered By: Jess White on 11-10-2024 Beta hydroxybutyrate [Mass/Vol] 0.2 mmol/L 0.0-0.3 [facility] Carbon dioxide, total [Moles /volume] in Central venous bloodOrdered By: Jess White on 11-10-2024 CO2 [Moles/Vol] 19.9 mmol/L Low 21.0-32.0 [facility] Chloride assayOrdered By: Lambert White on 11-10-2024 Chloride [Moles/Vol] 103 mmol/L 98-108 [facility] Glomerular filtration rate ( GFR) estimation/1.73 sq m using serum, plasma, or whole bOrdered By: Jess White on 11-10-2024 GFR/1.73 sq M.predicted among non-blacks MDRD (S/P/Bld) [Vol rate/Area] 100 mL/min/{1.73_m2} >60 [facility] Comment on above: mL/min/1.73m2 CKD-EP I Creatinine Equation (2020) Hemoglobin A1con 11-10-2024 HbA1c (Bld) [Mass fraction] 5.9 % High <=5.6 [facility] Comment on above: Result Comment: Norm al < 5.7 % Prediabetic 5.7 - 6.4 % Diabetic >or= 6.5 % Please note range changes. Performed By: #### L 501.6901, L501.9520, L506.1001, L501.9985, L506.0400, L500.2500 ####[facility] [address] [place], [address] Hemoglobin A1c percentageOrd ered By: Jess White on 11-10-2024 HbA1c (Bld) [Mass fraction] 5.9 % High <5.7 [facility] Comment on above: Normal < 5.7 % Predi abetic 5.7 - 6.4 % Diabetic >or= 6.5 % Please note range changes. Potassium measurement (mass/ volume)Ordered By: Jess White on 11-10-2024 Potassium (Unsp spec) [Mass/Vol] 3.7 mmol/L 3.3-5.1 [facility] Serum creatinine measurement (mass/volume)Ordered By: Jess White on 11-10-2024 Creatinine [Mass/Vol] 0.71 mg/dL 0.70-1.20 [facility] Serum glucose measurement (m ass/volume)Ordered By: Chanceovidio Stephensrosa on 11-10-2024 Glucose [Mass/Vol] 111 mg/dL High 70-99 [facility] Serum or plasma calcium eveline urement (mass/volume)Ordered By: Lambertsamygermánovidio Stephenssajanbryan on 11-10-2024 Calcium [Mass/Vol] 10.3 mg/dL 7.6-11.0 [facility] Serum or plasma urea nitroge n measurement (mass/volume)Ordered By: Jess Stephenssajanbryan on 11-10-2024 Urea nitrogen [Mass/Vol] 13 mg/dL 4-19 [facility] Sodium levelOrdered By: Toñito singh Angelosajanbryan on 11-10-2024 Sodium [Moles/Vol] 140 mmol/L 133-145 [facility] T4 Free Directon 11-10-2024 T4 FREE DIRECT 1.00 ng/dL Normal 0.76-1.46 [facility] Comment on above: Performed By: #### L 501.6901, L501.9520, L506.1001, L501.9985, L506.0400, L500.2500 ####[facility] [address] [place], [place], [id number] T4 freeOrdered By: Toñitogermánovidio White on 11-10-2024 Free T4 [Mass/Vol] 1.00 ng/dL 0.76-1.46 [facility] TSH DL <= 0.005 mIU/L QnOrde red By: Jess White on 11-10-2024 TSH Qn 1.780 uIU/mL 0.300-4.200 [facility] Thyroid Stim Hormone (TSH)on 11-10-2024 TSH 1.780 uIU/mL Normal 0.300-4.200 [facility] Comment on above: Performed By: #### L 501.6901, L501.9520, L506.1001, L501.9985, L506.0400, L500.2500 #### [facility] Laboratory [address] [place], [place], [id number] Vitamin D,25 Hydroxyon 11-10 Vitamin D 25-OH 51.0 ng/mL Normal 30-100 [facility] Comment on above: Result Comment: Louise min D Status Deficiency: <20 ng/mL (50nmol/L) Insufficiency: 20-30 ng/mL (50-75 nmol/L) Sufficiency: 30-100 ng/mL (75-250 nmol/L) Toxicity: >100 ng/mL (>250 nmol/L) Performed By: #### L 501.6901, L501.9520, L506.1001, L501.9985, L506.0400, L500.2500 ####[facility] [address] [place], [place], [address] Pulmonary Visit Reporton Pulmonary Visit Report [facility] [place] [address] [place] [address] OFFICE VISIT Date of Service: 08/31/24 MR#: [id number] Acct: [id number] Name: LINNEA FLYNN Rep #: [id number] : 1965 Provider: Francesca Baumann NP Age/Sex: 59/F Location: [facility].PMW Status: Signed Assessment and Plan Assessment and [...] air Intake Visit Reasons: 6 M FU Data Security Analyst Required: No MAGEN Vendor: mala Graham Accompanied by: Self Is [...] % topic (more content not included)... Normal [facility] Internal Medicine Office Vis iton 07-06-2024 Internal Medicine Office Visit [facility] [address] [place], [place] [address] OFFICE VISIT Date of Service: 07/06/24 MR#: [id number] Acct: [id number] Name: LINNEA FLYNN Rep #: [id number] : 1965 Provider: Dr. Jess alicia MD Age/Sex: 59/F Location: [facility] Status: Signed Intake Vital Signs 04/01/24 10:54 [...] M FU Chief Complaint: 3 M FU Data Security Analyst Required: No Is patient in pain?: No [...] No ch (more content not included)... Normal [facility] Absolute lymphocyte countOrd ered By: Jess Whiet on 06-29-2024 Lymphocytes Auto (Unsp spec) [#/Vol] 1.91 10*3/uL 0.83-4.51 [facility] Absolute neutrophil countOrd ered By: Jess White on 06-29-2024 Neutrophils (Bld) [#/Vol] 4.6 10*3/uL 2.0-7.7 [facility] Anion gap in Serum or Plasma Ordered By: Jess White on 06-29-2024 Anion gap [Moles/Vol] 13 mmol/L 5-15 [facility] Automated lymphocyte count a s percentage of total leukocytesOrdered By: Jess White on 06-29-2024 Lymphocytes/100 WBC Auto (Unsp spec) 26.1 % 19-41 [facility] BUN/creatinine ratioOrdered By: Jess White on 06-29-2024 Urea nitrogen/Creatinine [Mass ratio] 15.3 mg/mg 10-20 [facility] Basophil percentageOrdered B y: Jess White on 06-29-2024 Basophils/100 WBC (Bld) 0.3 % 0-1 [facility] Bilirubin, totalOrdered By: Jess White on 06-29-2024 Bilirubin [Mass/Vol] 0.26 mg/dL 0.00-1.30 [facility] CBC W/Diff, Automatedon 06-05 Absolute Lymph 1.91 X10 3/uL Normal 0.83-4.51 [facility] Comment on above: Performed By: #### L 100.0100, L500.4050, L501.9985, L500.4100 #### [facility] Laboratory [address] [place], [address] Absolute Neut 4.6 X10 3/uL Normal 2.0-7.7 [facility] Comment on above: Performed By: #### L 100.0100, L500.4050, L501.9985, L500.4100 #### [facility] Laboratory [address] [place], [address] Basophils/100 WBC (Bld) 0.3 % Normal 0-1 [facility] Comment on above: Performed By: #### L 100.0100, L500.4050, L501.9985, L500.4100 #### [facility] Laboratory [address] [place], [address] Eosinophils/100 WBC (Bld) 4.8 % Normal 0-5 [facility] Comment on above: Performed By: #### L 100.0100, L500.4050, L501.9985, L500.4100 #### [facility] Laboratory [address] [place], [address] Erythrocyte distribution width (RBC) [Ratio] 14.5 % Normal 11.6-14.6 [facility] Comment on above: Performed By: #### L 100.0100, L500.4050, L501.9985, L500.4100 #### [facility] Laboratory [address] [place], [address] Hematocrit (Bld) [Volume fraction] 40.5 % Normal 37-47 [facility] Comment on above: Performed By: #### L 100.0100, L500.4050, L501.9985, L500.4100 #### [facility] [address] [place], [address] Hemoglobin (Bld) [Mass/Vol] 13.0 g/dL Normal 12.0-15.0 [facility] Comment on above: Performed By: #### L 100.0100, L500.4050, L501.9985, L500.4100 #### [facility] Laboratory [address] [place], [address] IG% 0.400 Normal 0.0-0.9 [facility] Comment on above: Result Comment: IG% - Immature Granulocytes (promyelocytes, myelocytes and metamyelocytes) > 1% indicates that a LEFT SHIFT is Present. Performed By: #### L 100.0100, L500.4050, L501.9985, L500.4100 #### [facility] [address] [place], [address] Lymphocytes/100 WBC (Bld) 26.1 % Normal 19-41 [facility] Comment on above: Performed By: #### L 100.0100, L500.4050, L501.9985, L500.4100 #### [facility] [address] [place], [address] MCH (RBC) [Entitic mass] 28.0 pg Normal 27.0-32.0 [facility] Comment on above: Performed By: #### L 100.0100, L500.4050, L501.9985, L500.4100 #### [facility] [address] [place], [address] MCHC (RBC) [Mass/Vol] 32.1 g/dL Normal 32-36 [facility] Comment on above: Performed By: #### L 100.0100, L500.4050, L501.9985, L500.4100 #### [facility] Laboratory [address] [place], [address] MCV (RBC) [Entitic vol] 87.3 fL Normal 81-99 [facility] Comment on above: Performed By: #### L 100.0100, L500.4050, L501.9985, L500.4100 #### [facility] [address] [place], [address] Monocytes/100 WBC (Bld) 6.3 % Normal 0-10 [facility] Comment on above: Performed By: #### L 100.0100, L500.4050, L501.9985, L500.4100 #### [facility] Laboratory [address] [place], [address] Neutrophils/100 WBC (Bld) 62.1 % Normal 47-70 [facility] Comment on above: Performed By: #### L 100.0100, L500.4050, L501.9985, L500.4100 #### [facility] Laboratory [address] [place], [address] Nucleated RBC (Bld) [#/Vol] 0 10*3/uL Normal 0-5 [facility] Comment on above: Performed By: #### L 100.0100, L500.4050, L501.9985, L500.4100 #### [facility] Laboratory [address] [place], [address] Platelet mean volume (Bld) [Entitic vol] 10.0 fL Normal 6.2-12.0 [facility] Comment on above: Performed By: #### L 100.0100, L500.4050, L501.9985, L500.4100 #### [facility] [address] [place], [address] Platelets (Bld) [#/Vol] 321 10*3/uL Normal 150-450 [facility] Comment on above: Performed By: #### L 100.0100, L500.4050, L501.9985, L500.4100 #### [facility] [address] [place], [address] RBC (Bld) [#/Vol] 4.64 10*6/uL Normal 4.2-5.4 [facility] Comment on above: Performed By: #### L 100.0100, L500.4050, L501.9985, L500.4100 #### [facility] [address] [place], [address] RDW SD 46.3 fl High 35.1-43.9 [facility] Comment on above: Performed By: #### L 100.0100, L500.4050, L501.9985, L500.4100 #### [facility] [address] [place], [address] WBC (Bld) [#/Vol] 7.3 10*3/uL Normal 4.4-11.0 [facility] Comment on above: Performed By: #### L 100.0100, L500.4050, L501.9985, L500.4100 #### [facility] [address] [place], [address] Calculated very low density lipoprotein (VLDL) cholesterol measurementOrdered By: Jess White on 06-29-2024 Calculated very low density lipoprotein (VLDL) cholesterol measurement 34 mg/dL [facility] VLDL Cholesterol 34 mg/dL [facility] Carbon dioxide, total [Moles /volume] in Central venous bloodOrdered By: Jess White on 06-29-2024 CO2 [Moles/Vol] 22.2 mmol/L 21.0-32.0 [facility] Chloride assayOrdered By: Lambert White on 06-29-2024 Chloride [Moles/Vol] 104 mmol/L 98-108 [facility] Comprehensive Metabolic Prof ilon 06-29-2024 Albumin [Mass/Vol] 4.3 g/dL Normal 3.5-5.0 [facility] Comment on above: Performed By: #### L 100.0100, L500.4050, L501.9985, L500.4100 #### [facility] [address] [place], [address] Albumin/Globulin [Mass ratio] 1.3 {ratio} Normal 0.9-2.4 [facility] Comment on above: Performed By: #### L 100.0100, L500.4050, L501.9985, L500.4100 #### [facility] [address] [place], [address] ALK PHOS 84 U/L Normal 35-104 [facility] Comment on above: Performed By: #### L 100.0100, L500.4050, L501.9985, L500.4100 #### [facility] [address] [place], [address] ALT [Catalytic activity/Vol] 24 U/L Normal <=34 [facility] Comment on above: Performed By: #### L 100.0100, L500.4050, L501.9985, L500.4100 #### [facility] [address] [place], [address] AST [Catalytic activity/Vol] 26 U/L Normal <=31 [facility] Comment on above: Performed By: #### L 100.0100, L500.4050, L501.9985, L500.4100 #### [facility] [address] [place], [address] Bilirubin [Mass/Vol] 0.26 mg/dL Normal 0.00-1.30 [facility] Comment on above: Performed By: #### L 100.0100, L500.4050, L501.9985, L500.4100 #### [facility] [address] [place], [address] BUN/CRE 15.3 RATIO Normal 10-20 [facility] Comment on above: Performed By: #### L 100.0100, L500.4050, L501.9985, L500.4100 #### [facility] [address] [place], [address] Calcium [Mass/Vol] 10.1 mg/dL Normal 7.6-11.0 [facility] Comment on above: Performed By: #### L 100.0100, L500.4050, L501.9985, L500.4100 #### [facility] [address] [place], [address] Chloride [Moles/Vol] 104 mmol/L Normal 98-108 [facility] Comment on above: Performed By: #### L 100.0100, L500.4050, L501.9985, L500.4100 #### [facility] [address] [place], [address] CO2 [Moles/Vol] 22.2 mmol/L Normal 21.0-32.0 [facility] Comment on above: Performed By: #### L 100.0100, L500.4050, L501.9985, L500.4100 #### [facility] [address] [place], [address] Creatinine [Mass/Vol] 0.67 mg/dL Low 0.70-1.20 [facility] Comment on above: Performed By: #### L 100.0100, L500.4050, L501.9985, L500.4100 #### [facility] [address] [place], [address] GAP 13 Normal 5-15 [facility] Comment on above: Performed By: #### L 100.0100, L500.4050, L501.9985, L500.4100 #### [facility] [address] [place], [address] GFR/1.73 sq M.predicted among non-blacks MDRD (S/P/Bld) [Vol rate/Area] 102 mL/min/{1.73_m2} Normal >60 [facility] Comment on above: Result Comment: mL/m in/1.73m2 CKD-EPI Creatinine Equation (2020) Performed By: #### L 100.0100, L500.4050, L501.9985, L500.4100 #### [facility] [address] [place], [address] Globulin (S) [Mass/Vol] 3.2 g/dL Normal 2.2-4.2 [facility] Comment on above: Performed By: #### L 100.0100, L500.4050, L501.9985, L500.4100 #### [facility] [address] [place], [address] Glucose [Mass/Vol] 103 mg/dL High 70-99 [facility] Comment on above: Performed By: #### L 100.0100, L500.4050, L501.9985, L500.4100 #### [facility] [address] [place], [address] Potassium [Moles/Vol] 4.0 mmol/L Normal 3.3-5.1 [facility] Comment on above: Performed By: #### L 100.0100, L500.4050, L501.9985, L500.4100 #### [facility] [address] [place], [address] Sodium [Moles/Vol] 140 mmol/L Normal 133-145 [facility] Comment on above: Performed By: #### L 100.0100, L500.4050, L501.9985, L500.4100 #### [facility] [address] [place], [address] T PROT 7.4 g/dL Normal 5.9-8.4 [facility] Comment on above: Performed By: #### L 100.0100, L500.4050, L501.9985, L500.4100 #### [facility] [address] [place], [address] Urea nitrogen [Mass/Vol] 10 mg/dL Normal 4-19 [facility] Comment on above: Performed By: #### L 100.0100, L500.4050, L501.9985, L500.4100 #### [facility] [address] [place], [place], [address] Eosinophil percentageOrdered By: Jess White on 06-29-2024 Eosinophils/100 WBC (Bld) 4.8 % 0-5 [facility] Erythrocyte distribution wid th ratioOrdered By: [facility] White on 06-29-2024 Erythrocyte distribution width (RBC) [Ratio] 14.5 % 11.6-14.6 [facility] Erythrocyte distribution wid th standard deviationOrdered By: samysuffolkovidio White on 06-29-2024 Erythrocyte distribution width (RBC) [Entitic vol] 46.3 fL High 35.1-43.9 [facility] Erythrocyte distribution width (RBC) [Ratio] 46.3 fl High 35.1-43.9 [facility] GFR/1.73 sq M.predicted ben g non-blacks MDRD (S/P/Bld) [Vol rate/Area]Ordered By: Jess White on 06-29-2024 Estimated GFR (MDRD) Non-Af Amer 102 >60 [facility] Comment on above: mL/min/1.73m2 CKD-EP I Creatinine Equation (2020) Glomerular filtration rate ( GFR) estimation/1.73 sq m using serum, plasma, or whole bOrdered By: Jess White on 06-29-2024 GFR/1.73 sq M.predicted among non-blacks MDRD (S/P/Bld) [Vol rate/Area] 102 mL/min/{1.73_m2} >60 [facility] Comment on above: mL/min/1.73m2 CKD-EP I Creatinine Equation (2020) Hematocrit Auto (Bld) [Volum e fraction]Ordered By: Jess White on 06-29-2024 Hematocrit (Bld) [Volume fraction] 40.5 % 37-47 [facility] Hemoglobin A1con 06-29-2024 HbA1c (Bld) [Mass fraction] 5.8 % Normal <=5.6 [facility] Comment on above: Performed By: #### L 100.0100, L500.4050, L501.9985, L500.4100 #### [facility] [address] [place], [place], [address] Hemoglobin A1c percentageOrd ered By: Jess White on 06-29-2024 HbA1c (Bld) [Mass fraction] 5.8 % >5.7 [facility] Hemoglobin measurementOrdere d By: Jess White on 06-29-2024 Hemoglobin (Bld) [Mass/Vol] 13.0 g/dL 12.0-15.0 [facility] Immature granulocytes/100 WB C Auto (Bld)Ordered By: Jess White on 06-29-2024 Immature granulocytes/100 WBC (Bld) 0.400 % 0.0-0.9 [facility] Comment on above: IG% - Immature Granu locytes (promyelocytes, myelocytes and metamyelocytes) > 1% indicates that a LEFT SHIFT is Present. LDL calc ser/plasOrdered By: Jess White on 06-29-2024 Cholesterol in LDL [Mass/Vol] 114 mg/dL [facility] Comment on above: Gxrpfqybxg=902-981 m g/dL & Higher Ysqw=332 mg/dL or greater LDL Cholesterol, Calculated 114 mg/dL [facility] Comment on above: Ldkhjwephh=290-158 m g/dL & Higher Thcq=106 mg/dL or greater Laboratory - Chemistry and C hemistry - challengeOrdered By: Jess White on 06-29-2024 AST [Catalytic activity/Vol] 26 U/L <32 [facility] Lipid Profileon 06-29-2024 CHOL:HDL 3.72 Normal [facility] Comment on above: Performed By: #### L 100.0100, L500.4050, L501.9985, L500.4100 #### [facility] [address] [place], [address] Cholesterol [Mass/Vol] 202 mg/dL High <=200 [facility] Comment on above: Result Comment: Chol esterol level, Desirable <200 mg/dL Borderline high cholesterol 200-239 mg/dL High cholesterol >=240 mg/dL Recommendations of the NCEP Adult Treatment Panel for the following risk-cutoff thresholds for the [place] population. Performed By: #### L 100.0100, L500.4050, L501.9985, L500.4100 #### [facility] [address] [place], [address] Cholesterol in HDL [Mass/Vol] 54 mg/dL Normal [facility] Comment on above: Result Comment: Emmie onal Cholesterol Education Program (NCEP) guidelines: <40 mg/dL: Low HDL-cholesterol (major risk factor for CHD) >= 60 mg/dL: High HDL-cholesterol (negative risk factor for CHD) HDL-cholesterol is affected by a number of factors, e.g. smoking, exercise, hormones, sex and age. Performed By: #### L 100.0100, L500.4050, L501.9985, L500.4100 #### [facility] [address] [place], [address] Cholesterol in LDL [Mass/Vol] 114 mg/dL Normal [facility] Comment on above: Result Comment: Bord shkfdy=421-625 mg/dL Higher Wmdb=736 mg/dL or greater Performed By: #### L 100.0100, L500.4050, L501.9985, L500.4100 #### [facility] [address] [place], [address] Cholesterol in VLDL [Mass/Vol] 34 mg/dL Normal 5-40 [facility] Comment on above: Performed By: #### L 100.0100, L500.4050, L501.9985, L500.4100 #### [facility] [address] [place], [address] Triglyceride [Mass/Vol] 171 mg/dL Normal [facility] Comment on above: Result Comment: The drugs N-Acetylcysteine and Metamizole may falsely depress this assay. Normal range: <150 mg/dL Borderline High: 150-199 mg/dL High: 200-499 mg/dL Very High: >500 mg/dL Performed By: #### L 100.0100, L500.4050, L501.9985, L500.4100 #### [facility] [address] [place], [address] Lymphocytes Auto (Unsp spec) [#/Vol]Ordered By: Jess White on 06-29-2024 Lymphocytes (Bld) [#/Vol] 1.91 10*3/uL 0.83-4.51 [facility] Lymphocytes/100 WBC Auto (Un sp spec)Ordered By: Jess White on 06-29-2024 Lymphocytes/100 WBC (Bld) 26.1 % 19-41 [facility] MCV (mean corpuscular volume ) determinationOrdered By: Jess White on 06-29-2024 MCV (RBC) [Entitic vol] 87.3 fL 81-99 [facility] Mean corpuscular hemoglobin (MCH) determinationOrdered By: Toñitosuffolkovidio White on 06-29-2024 MCH (RBC) [Entitic mass] 28.0 pg 27.0-32.0 [facility] Mean corpuscular hemoglobin concentration (MCHC) determinationOrdered By: samysuffolkovidio White on 06-29-2024 MCHC (RBC) [Mass/Vol] 32.1 g/dL 32-36 [facility] Mean platelet volume determi nationOrdered By: samysuffolkovidio White on 06-29-2024 Platelet mean volume (Bld) [Entitic vol] 10.0 fL 6.2-12.0 [facility] Monocyte percentageOrdered B y: Jess White on 06-29-2024 Monocytes/100 WBC (Bld) 6.3 % 0-10 [facility] Neutrophil percentageOrdered By: Jess White on 06-29-2024 Neutrophils/100 WBC (Bld) 62.1 % 47-70 [facility] Nucleated red blood cell per centageOrdered By: Jess White on 06-29-2024 Nucleated RBC/100 WBC (Bld) [Ratio] 0 % 0-5 [facility] Platelet countOrdered By: Lambert White on 06-29-2024 Platelets (Bld) [#/Vol] 321 10*3/uL 150-450 [facility] Potassium (Unsp spec) [Mass/ Vol]Ordered By: Jess White on 06-29-2024 Potassium [Moles/Vol] 4.0 mmol/L 3.3-5.1 [facility] Potassium measurement (mass/ volume)Ordered By: Jess White on 06-29-2024 Potassium (Unsp spec) [Mass/Vol] 4.0 mmol/L 3.3-5.1 [facility] RBC Auto (Bld) [#/Vol]Ordere d By: Jess White on 06-29-2024 RBC (Bld) [#/Vol] 4.64 10*6/uL 4.2-5.4 [facility] Screening total cholesterol/ high density lipoprotein (HDL) cholesterol ratioOrdered By: Jess White on 06-29-2024 Cholesterol.total/Choles terol in HDL [Mass ratio] 3.72 {ratio} [facility] Serum creatinine measurement (mass/volume)Ordered By: Jess White on 06-29-2024 Creatinine [Mass/Vol] 0.67 mg/dL Low 0.70-1.20 [facility] Serum globulin measurementOr dered By: Jess White on 06-29-2024 Globulin (S) [Mass/Vol] 3.2 g/dL 2.2-4.2 [facility] Serum glucose measurement (m ass/volume)Ordered By: Jess White on 06-29-2024 Glucose [Mass/Vol] 103 mg/dL High 70-99 [facility] Serum or plasma alanine vazquez otransferase (ALT) measurementOrdered By: Jess White on 06-29-2024 ALT [Catalytic activity/Vol] 24 U/L <35 [facility] Serum or plasma albumin eveline urement (mass/volume)Ordered By: Jess White on 06-29-2024 Albumin [Mass/Vol] 4.3 g/dL 3.5-5.0 [facility] Serum or plasma albumin/glob ulin mass ratioOrdered By: Jess White on 06-29-2024 Albumin/Globulin [Mass ratio] 1.3 {ratio} 0.9-2.4 [facility] Serum or plasma alkaline bonny sphatase measurementOrdered By: Jess White on 06-29-2024 ALP [Catalytic activity/Vol] 84 U/L 35-104 [facility] Serum or plasma calcium eveline urement (mass/volume)Ordered By: Jess White on 06-29-2024 Calcium [Mass/Vol] 10.1 mg/dL 7.6-11.0 [facility] Serum or plasma cholesterol in HDL measurement (mass/volume)Ordered By: Jess White 06-29-2024 Cholesterol in HDL [Mass/Vol] 54 mg/dL >40 [facility] Comment on above: National Cholesterol Education Program (NCEP) guidelines:<40 mg/dL: Low HDL-cholesterol (major risk factor for CHD)>= 60 mg/dL: High HDL-cholesterol (negative risk factor for CHD)HDL-cholesterol is affected by a number of factors, e.g. smoking, exercise, hormones, sex and age. Serum or plasma cholesterol measurement (mass/volume)Ordered By: Jess White on 06-29-2024 Cholesterol [Mass/Vol] 202 mg/dL High <201 [facility] Comment on above: Cholesterol level, D esirable <200 mg/dLBorderline high cholesterol 200-239 mg/dLHigh cholesterol >=240 mg/dLRecommendations of the NCEP Adult Treatment Panel for the following risk-cutoff thresholds for the [place] population. Serum or plasma urea nitroge n measurement (mass/volume)Ordered By: Jess White on 06-29-2024 Urea nitrogen [Mass/Vol] 10 mg/dL 4-19 [facility] Sodium levelOrdered By: Toñito White on 06-29-2024 Sodium [Moles/Vol] 140 mmol/L 133-145 [facility] Total proteinOrdered By: Bashir White on 06-29-2024 Protein [Mass/Vol] 7.4 g/dL 5.9-8.4 [facility] Triglycerides measurementOrd ered By: Jess White on 06-29-2024 Triglyceride [Mass/Vol] 171 mg/dL <199 [facility] Comment on above: The drugs N-Acetylcy steine and Metamizole may falsely depress this assay. Normal range: <150 mg/dLBorderline High: 150-199 mg/dLHigh: 200-499 mg/dLVery High: >500 mg/dL White blood cell (WBC) count Ordered By: Jess White on 06-29-2024 WBC (Bld) [#/Vol] 7.3 10*3/uL 4.4-11.0 [facility] Internal Medicine Office Vis itolala 04-01-2024 Internal Medicine Office Visit [facility] [address] [place] [address] [place] [address] OFFICE VISIT Date of Service: 04/01/24 MR#: [id number] Acct: [id number] Name: LINNEA FLYNN Rep #: [id number] : 1965 Provider: Dr. Jess alicia MD Age/Sex: 58/F Location: [facility] Status: Signed Intake Vital Signs 12/25/23 14:28 [...] M FU Chief Complaint: Follow-up chronic conditions. Data Security Analyst Required: No Accompanied by: Self Is patient [...] visual disturban (more content not included)... Normal [facility] Laboratory - Hematology and Cell countson 04-01-2024 HbA1c (Bld) [Mass fraction] 6.0 % 4.2-6.3 [facility] Pulmonary Visit Reporton Pulmonary Visit Report [facility] [address] [place] [address] OFFICE VISIT Date of Service: 03/02/24 MR#: [id number] Acct: [id number] Name: LINNEA FLYNN Rep #: [id number] : 1965 Provider: ERON Kaplan Age/Sex: 58/F Location: [facility].PMW Status: Signed Assessment and Plan Assessment and Plan (1) OSMIN (obstructive sleep apnea): Status: Chronic Plan: She is using and benefiting from Pap therapy. No indication for titration study at this time. It has been "a long time" since she had new supplies. I will [...] be feeling more rested when I use it". She is not requiring naps. She is [...] room air Intake Visit Reasons: Re-establish OSMIN Data Security Analyst Required: No DME Vendor: pap- [employer] Accompanied [...] tablet) blood sugar diagnostic #50 ea 11/16/19 03/02/24 Rx iron-vitamin B complex with C 27 [...] tabs 07 (more content not included)... Normal [facility] Basophil percentageOrdered B y: Lambertsamygermánovidio Stephenssajanbryan on 06-24-2023 Potassium [Moles/Vol] 3.8 mmol/L 3.5-5.1 [facility] Absolute lymphocyte countOrd ered By: Jess White on 06-10-2023 Lymphocytes Auto (Unsp spec) [#/Vol] 2.39 10*3/uL 0.83-4.51 [facility] Automated lymphocyte count a s percentage of total leukocytesOrdered By: Jess Stephenssajanbryan on 06-10-2023 Lymphocytes/100 WBC Auto (Unsp spec) 28.2 % 19-41 [facility] Basophil percentageOrdered B y: Jess Angelosajanbryan on 06-10-2023 Basophils/100 WBC (Bld) 0.5 % 0-1 [facility] Bilirubin [Mass/Vol] 0.30 mg/dL 0.20-1.00 [facility] Comment on above: For patients on eltr ombopag therapy, use of Dimension [place] TBIL is not recommended. Chloride [Moles/Vol] 108 mmol/L 98-107 [facility] Cholesterol [Mass/Vol] 136 mg/dL <200 [facility] Comment on above: <200 mg/dL Desirable 200-240 mg/dL Borderline >240 mg/dL High Risk Eosinophils/100 WBC (Bld) 1.1 % 0-5 [facility] Glucose [Mass/Vol] 115 mg/dL 74-106 [facility] Comment on above: Fasting Glucose resu lt from 100 to 125 mg/dL suggests IMPAIRED HOMEOSTASIS per A.D.A. criteria. Hemoglobin (Bld) [Mass/Vol] 12.4 g/dL 12.0-15.0 [facility] Monocytes/100 WBC (Bld) 4.0 % 0-10 [facility] Neutrophils (Bld) [#/Vol] 5.6 10*3/uL 2.0-7.7 [facility] Neutrophils/100 WBC (Bld) 66.0 % 47-70 [facility] Potassium [Moles/Vol] 3.0 mmol/L 3.5-5.1 [facility] Protein [Mass/Vol] 7.5 g/dL 6.4-8.2 [facility] Sodium [Moles/Vol] 140 mmol/L 136-145 [facility] Triglyceride [Mass/Vol] 151 mg/dL <199 [facility] Comment on above: The drugs N-Acetylcy steine and Metamizole may falsely depress this assay.Serum Triglycerides Reference Interval Normal <150 mg/dL Borderline high 150 - 199 mg/dL High 200 - 499 mg/dL Very High > or = 500 mg/dL WBC (Bld) [#/Vol] 8.5 10*3/uL 4.4-11.0 [facility] Determination of erythrocyte mean corpuscular volume (MCV)Ordered By: Jess White on 06-10-2023 MCV (RBC) [Entitic vol] 85.7 fL 81-99 [facility] Erythrocyte distribution wid th ratioOrdered By: Toñitosuffolkovidio Stephensbryan on 06-10-2023 Erythrocyte distribution width (RBC) [Ratio] 14.2 % 11.6-14.6 [facility] Erythrocyte distribution wid th standard deviationOrdered By: Toñitosuffolkovidio White on 06-10-2023 Erythrocyte distribution width (RBC) [Entitic vol] 44.2 fL 35.1-43.9 [facility] Hematocrit Auto (Bld) [Volum e fraction]Ordered By: Jess White on 06-10-2023 Hematocrit (Bld) [Volume fraction] 39.1 % 37-47 [facility] Immature granulocytes/100 WB C Auto (Bld)Ordered By: Jess White on 06-10-2023 Immature granulocytes/100 WBC (Bld) 0.200 % 0.0-0.9 [facility] Comment on above: IG% - Immature Granu locytes (promyelocytes, myelocytes and metamyelocytes) > 1% indicates that a LEFT SHIFT is Present. Laboratory - Chemistry and C hemistry - challengeOrdered By: Jess White on 06-10-2023 Albumin/Globulin [Mass ratio] 0.9 {ratio} 0.9-2.4 [facility] ALP [Catalytic activity/Vol] 87 U/L 45-117 [facility] ALT [Catalytic activity/Vol] 34 U/L 13-56 [facility] Cholesterol in HDL [Mass/Vol] 44 mg/dL >40 [facility] Comment on above: The drugs N-Acetylcy steine and Metamizole may falsely depress this assay. Reference Range HDL <40 mg/dL Low HDL Cholesterol HDL >or= 60 mg/dL High HDL Cholesterol Cholesterol in LDL [Mass/Vol] 62 mg/dL 0-130 [facility] CO2 [Moles/Vol] 26.0 mmol/L 21.0-32.0 [facility] Globulin (S) [Mass/Vol] 4.0 g/dL 2.2-4.2 [facility] Urea nitrogen/Creatinine [Mass ratio] 15.3 mg/mg 10-20 [facility] Laboratory - Hematology and Cell countsOrdered By: Jess White on 06-10-2023 MCH (RBC) [Entitic mass] 27.2 pg 27.0-32.0 [facility] MCHC (RBC) [Mass/Vol] 31.7 g/dL 32-36 [facility] Nucleated RBC/100 WBC (Bld) [Ratio] 0 % 0-5 [facility] Platelet mean volume (Bld) [Entitic vol] 9.7 fL 6.2-12.0 [facility] Platelets (Bld) [#/Vol] 323 10*3/uL 150-450 [facility] No Panel InformationOrdered By: Jess White on 06-10-2023 Estimated GFR (MDRD) Amer 108 mL/min >60 [facility] Comment on above: GFR Calc Estimated GFR (MDRD) Non-Af Amer 89 mL/min >60 [facility] Comment on above: Non- GFR Calc VLDL Cholesterol 30 mg/dL 5-40 [facility] RBC Auto (Bld) [#/Vol]Ordere d By: Jess White on 06-10-2023 RBC (Bld) [#/Vol] 4.56 10*6/uL 4.2-5.4 [facility] Serum or plasma calcium eveline urement (mass/volume)Ordered By: Jess White on 06-10-2023 Calcium [Mass/Vol] 9.3 mg/dL 8.5-10.1 [facility] Serum or plasma creatinine m easurement (mass/volume)Ordered By: Jess White on 06-10-2023 Creatinine [Mass/Vol] 0.72 mg/dL 0.55-1.02 [facility] Comment on above: The validity of the calculated GFR & GFRAA in patients over 70 years has not been determined. Clinical correlation is essential. Serum or plasma urea nitroge n measurement (mass/volume)Ordered By: Jess White on 06-10-2023 Urea nitrogen [Mass/Vol] 11 mg/dL 7-18 [facility] Thin prep Papanicolaou smear with manual screeningOrdered By: Jess White on 06-10-2023 Thin prep Papanicolaou smear with manual screening 3.5 g/dL 3.2-5.0 [facility] Thin prep Papanicolaou smear with manual screening 20 U/L 15-37 [facility] Thin prep Papanicolaou smear with manual screening 6 5-15 [facility] Whole blood hemoglobin A1c/t otal hemoglobin ratio (mass fraction)Ordered By: Jess White on 06-10-2023 HbA1c (Bld) [Mass fraction] 5.8 % 3.8-5.6 [facility] Comment on above: Normal < 5.7 % Predi abetic 5.7 - 6.4 % Diabetic >or= 6.5 % Please note range changes. Laboratory - Hematology and Cell countson 02-20-2023 HbA1c (Bld) [Mass fraction] 6.1 % 4.2-6.3 [facility] Basophil percentageOrdered B y: Jess White on 11-14-2022 Chloride [Moles/Vol] 107 mmol/L 98-107 [facility] Glucose [Mass/Vol] 111 mg/dL 74-106 [facility] Comment on above: Fasting Glucose resu lt from 100 to 125 mg/dL suggests IMPAIRED HOMEOSTASIS per A.D.A. criteria. Potassium [Moles/Vol] 3.6 mmol/L 3.5-5.1 [facility] Sodium [Moles/Vol] 140 mmol/L 136-145 [facility] Laboratory - Chemistry and C hemistry - challengeOrdered By: Jess White on 11-14-2022 CO2 [Moles/Vol] 26.0 mmol/L 21.0-32.0 [facility] Urea nitrogen/Creatinine [Mass ratio] 17.1 mg/mg 10-20 [facility] Laboratory - Hematology and Cell countson 11-14-2022 HbA1c (Bld) [Mass fraction] 6.2 % 4.2-6.3 [facility] No Panel InformationOrdered By: Jess White on 11-14-2022 Estimated GFR (MDRD) Amer 111 mL/min >60 [facility] Comment on above: GFR Calc Estimated GFR (MDRD) Non-Af Amer 92 mL/min >60 [facility] Comment on above: Non- GFR Calc Serum or plasma calcium eveline urement (mass/volume)Ordered By: Jess White on 11-14-2022 Calcium [Mass/Vol] 9.1 mg/dL 8.5-10.1 [facility] Serum or plasma creatinine m easurement (mass/volume)Ordered By: Jess White on 11-14-2022 Creatinine [Mass/Vol] 0.70 mg/dL 0.55-1.02 [facility] Comment on above: The validity of the calculated GFR & GFRAA in patients over 70 years has not been determined. Clinical correlation is essential. Serum or plasma urea nitroge n measurement (mass/volume)Ordered By: Jess White on 11-14-2022 Urea nitrogen [Mass/Vol] 12 mg/dL 7-18 [facility] Thin prep Papanicolaou smear with manual screeningOrdered By: Jess White on 11-14-2022 Thin prep Papanicolaou smear with manual screening 7 5-15 [facility] Absolute lymphocyte countOrd ered By: Dr. White on 07-23-2022 Lymphocytes Auto (Unsp spec) [#/Vol] 2.28 10*3/uL 0.83-4.51 [facility] Basophil percentageOrdered B y: Dr. White on 07-23-2022 Basophils/100 WBC (Bld) 0.4 % 0-1 [facility] Bilirubin [Mass/Vol] 0.20 mg/dL 0.20-1.00 [facility] Comment on above: For patients on eltr ombopag therapy, use of Dimension [place] TBIL is not recommended. Chloride [Moles/Vol] 106 mmol/L 98-107 [facility] Cholesterol [Mass/Vol] 178 mg/dL <200 [facility] Comment on above: <200 mg/dL Desirable 200-240 mg/dL Borderline >240 mg/dL High Risk Eosinophils/100 WBC (Bld) 1.0 % 0-5 [facility] Glucose [Mass/Vol] 103 mg/dL 74-106 [facility] Comment on above: Fasting Glucose resu lt from 100 to 125 mg/dL suggests IMPAIRED HOMEOSTASIS per A.D.A. criteria. Neutrophils (Bld) [#/Vol] 6.2 10*3/uL 2.0-7.7 [facility] Neutrophils/100 WBC (Bld) 68.2 % 47-70 [facility] Potassium [Moles/Vol] 3.3 mmol/L 3.5-5.1 [facility] Protein [Mass/Vol] 7.7 g/dL 6.4-8.2 [facility] Sodium [Moles/Vol] 136 mmol/L 136-145 [facility] Triglyceride [Mass/Vol] 168 mg/dL <199 [facility] Comment on above: The drugs N-Acetylcy steine and Metamizole may falsely depress this assay.Serum Triglycerides Reference Interval Normal <150 mg/dL Borderline high 150 - 199 mg/dL High 200 - 499 mg/dL Very High > or = 500 mg/dL WBC (Bld) [#/Vol] 9.2 10*3/uL 4.4-11.0 [facility] Blood erythrocytes count (nu mber/volume)Ordered By: Dr. White on 07-23-2022 RBC (Bld) [#/Vol] 4.37 10*6/uL 4.2-5.4 [facility] Blood hemoglobin measurement (mass/volume)Ordered By: Dr. White on 07-23-2022 Hemoglobin (Bld) [Mass/Vol] 12.2 g/dL 12.0-15.0 [facility] Blood lymphocytes/100 leukoc ytesOrdered By: Dr. White on 07-23-2022 Lymphocytes/100 WBC (Bld) 24.9 % 19-41 [facility] Blood monocytes/100 leukocyt esOrdered By: Dr. White on 07-23-2022 Monocytes/100 WBC (Bld) 5.1 % 0-10 [facility] Blood platelet mean volumeOr dered By: Dr. White on 07-23-2022 Platelet mean volume (Bld) [Entitic vol] 10.1 fL 6.2-12.0 [facility] Determination of erythrocyte mean corpuscular volume (MCV)Ordered By: Dr. White on 07-23-2022 MCV (RBC) [Entitic vol] 90.6 fL 81-99 [facility] Hematocrit Auto (Bld) [Volum e fraction]Ordered By: Dr. White on 07-23-2022 Hematocrit (Bld) [Volume fraction] 39.6 % 37-47 [facility] Laboratory - Chemistry and C hemistry - challengeOrdered By: Dr. White on 07-23-2022 ALP [Catalytic activity/Vol] 89 U/L 45-117 [facility] ALT [Catalytic activity/Vol] 37 U/L 13-56 [facility] CO2 [Moles/Vol] 26.0 mmol/L 21.0-32.0 [facility] Globulin (S) [Mass/Vol] 3.9 g/dL 2.2-4.2 [facility] Urea nitrogen/Creatinine [Mass ratio] 14.6 mg/mg 10-20 [facility] Laboratory - Hematology and Cell countsOrdered By: Dr. White on 07-23-2022 Erythrocyte distribution width (RBC) [Entitic vol] 48.6 fL 35.1-43.9 [facility] Erythrocyte distribution width (RBC) [Ratio] 14.6 % 11.6-14.6 [facility] Immature granulocytes/100 WBC (Bld) 0.400 % 0.0-0.9 [facility] Comment on above: IG% - Immature Granu locytes (promyelocytes, myelocytes and metamyelocytes) > 1% indicates that a LEFT SHIFT is Present. MCH (RBC) [Entitic mass] 27.9 pg 27.0-32.0 [facility] Nucleated RBC/100 WBC (Bld) [Ratio] 0 % 0-5 [facility] MCHC Auto (RBC) [Mass/Vol]Or dered By: Dr. White on 07-23-2022 MCHC (RBC) [Mass/Vol] 30.8 g/dL 32-36 [facility] No Panel InformationOrdered By: Dr. White on 07-23-2022 Urine Microalbumin/Creatinine Ratio TNP [facility] Comment on above: Test not performed Estimated GFR (MDRD) Amer 130 mL/min >60 [facility] Comment on above: GFR Calc Estimated GFR (MDRD) Non-Af Amer 107 mL/min >60 [facility] Comment on above: Non- GFR Calc Platelets bldOrdered By: Dr. White on 07-23-2022 Platelets (Bld) [#/Vol] 340 10*3/uL 150-450 [facility] Serum or plasma albumin eveline urement (mass/volume)Ordered By: Dr. White on 07-23-2022 Albumin [Mass/Vol] 3.8 g/dL 3.2-5.0 [facility] Serum or plasma albumin/glob ulin mass ratioOrdered By: Dr. White on 07-23-2022 Albumin/Globulin [Mass ratio] 1.0 {ratio} 0.9-2.4 [facility] Serum or plasma calcium eveline urement (mass/volume)Ordered By: Dr. White on 07-23-2022 Calcium [Mass/Vol] 9.3 mg/dL 8.5-10.1 [facility] Serum or plasma cholesterol in HDL measurement (mass/volume)Ordered By: Dr. White on 07-23-2022 Cholesterol in HDL [Mass/Vol] 47 mg/dL >40 [facility] Comment on above: The drugs N-Acetylcy steine and Metamizole may falsely depress this assay. Reference Range HDL <40 mg/dL Low HDL Cholesterol HDL >or= 60 mg/dL High HDL Cholesterol Serum or plasma cholesterol in VLDL measurement (mass/volume)Ordered By: Dr. White on 07-23-2022 Cholesterol in VLDL [Mass/Vol] 34 mg/dL 5-40 [facility] Serum or plasma creatinine m easurement (mass/volume)Ordered By: Dr. White on 07-23-2022 Creatinine [Mass/Vol] 0.62 mg/dL 0.55-1.02 [facility] Comment on above: The validity of the calculated GFR & GFRAA in patients over 70 years has not been determined. Clinical correlation is essential. Serum or plasma low density lipoprotein (LDL) cholesterol measurement (mass/volume)Ordered By: Dr. White on 07-23-2022 Cholesterol in LDL [Mass/Vol] 97 mg/dL 0-130 [facility] Serum or plasma urea nitroge n measurement (mass/volume)Ordered By: Dr. White on 07-23-2022 Urea nitrogen [Mass/Vol] 9 mg/dL 7-18 [facility] Thin prep Papanicolaou smear with manual screeningOrdered By: Dr. White on 07-23-2022 Thin prep Papanicolaou smear with manual screening < 5.0 mg/L NO RANGE EST. [facility] Thin prep Papanicolaou smear with manual screening 31 U/L 15-37 [facility] Thin prep Papanicolaou smear with manual screening 4 5-15 [facility] Urine creatinine measurement (mass/volume)Ordered By: Dr. White on 07-23-2022 Creatinine (U) [Mass/Vol] 70.10 mg/dL NO RANGE EST. [facility] Laboratory - Microbiology an d Antimicrobial susceptibilityOrdered By: Sarah Brand on 04-10-2022 SARS-CoV-2 (COVID-19) RNA ALBERTO+probe Ql (Unsp spec) Not detected Not Detect [facility] Comment on above: Normal Reference Ran ge: [...] 04-10 Influenza Types A,B Rapid (Clinic) Negative [facility] Basophil percentageon 2021 Bilirubin [Mass/Vol] 0.20 mg/dL 0.20-1.00 [facility] Work Phone: Comment on above: For patients on eltr ombopag therapy, use of Dimension [place] TBIL is not recommended. Chloride [Moles/Vol] 108 mmol/L 98-107 [facility] Work Phone: Glucose [Mass/Vol] 117 mg/dL 74-106 [facility] Work Phone: Comment on above: Fasting Glucose resu lt from 100 to 125 mg/dL suggests IMPAIRED HOMEOSTASIS per A.D.A. criteria. Potassium [Moles/Vol] 3.5 mmol/L 3.5-5.1 [facility] Work Phone: Protein [Mass/Vol] 7.5 g/dL 6.4-8.2 [facility] Work Phone: Sodium [Moles/Vol] 141 mmol/L 136-145 [facility] Work Phone: Laboratory - Chemistry and C hemistry - challengeon 11-29-2021 ALP [Catalytic activity/Vol] 90 U/L 45-117 [facility] Work Phone: [phone] ALT [Catalytic activity/Vol] 49 U/L 13-56 [facility] Work Phone: [phone] CO2 [Moles/Vol] 24.0 mmol/L 21.0-32.0 [facility] Work Phone: [phone] Cobalamin (Vitamin B12) [Mass/Vol] 552 pg/mL 211-911 [facility] Work Phone: [phone] Free T4 [Mass/Vol] 0.85 ng/dL 0.76-1.46 [facility] Work Phone: [phone] Globulin (S) [Mass/Vol] 3.8 g/dL 2.2-4.2 [facility] Work Phone: [phone] Urea nitrogen/Creatinine [Mass ratio] 15.6 mg/mg 10-20 [facility] Work Phone: [phone] Laboratory - Hematology and Cell countson 11-29-2021 HbA1c (Bld) [Mass fraction] 6.2 % 4.2-6.3 [facility] Work Phone: No Panel Informationon 11-29 Estimated GFR (MDRD) Amer 101 mL/min >60 [facility] Work Phone: [phone] Comment on above: GFR Calc Estimated GFR (MDRD) Non-Af Amer 83 mL/min >60 [facility] Work Phone: [phone] Comment on above: Non- GFR Calc Thyroid Stimulating Hormone (TSH) 1.09 uIU/mL 0.358-3.74 [facility] Work Phone: Vitamin D 25-Hydroxy 52.9 ng/mL [facility] Work Phone: [phone] Comment on above: Vitamin D 25(OH) Sta tus Range Deficiency <20 ng/mL (50nmol/L) Insufficiency 20 - 30 ng/mL (50 - 75 nmol/L) Sufficiency 30 - 100 ng/mL (75 - 250 nmol/L) Toxicity >100 ng/mL (>250 nmol/L) Serum or plasma albumin eveline urement (mass/volume)on 11-29-2021 Albumin [Mass/Vol] 3.7 g/dL 3.2-5.0 [facility] Work Phone: Serum or plasma albumin/glob ulin mass ratioon 11-29-2021 Albumin/Globulin [Mass ratio] 1.0 {ratio} 0.9-2.4 [facility] Work Phone: Serum or plasma calcium eveline urement (mass/volume)on 11-29-2021 Calcium [Mass/Vol] 8.7 mg/dL 8.5-10.1 [facility] Work Phone: Serum or plasma creatinine m easurement (mass/volume)on 11-29-2021 Creatinine [Mass/Vol] 0.77 mg/dL 0.55-1.02 [facility] Work Phone: Comment on above: The validity of the calculated GFR & GFRAA in patients over 70 years has not been determined. Clinical correlation is essential. Serum or plasma urea nitroge n measurement (mass/volume)on 11-29-2021 Urea nitrogen [Mass/Vol] 12 mg/dL 7-18 [facility] Work Phone: [phone] Thin prep Papanicolaou smear with manual screeningon 11-29-2021 Thin prep Papanicolaou smear with manual screening 32 U/L 15-37 [facility] Work Phone: [phone] Thin prep Papanicolaou smear with manual screening 9 5-15 [facility] Work Phone: [phone] Absolute lymphocyte counton 08-23-2021 Lymphocytes Auto (Unsp spec) [#/Vol] 2.12 10*3/uL 0.83-4.51 [facility] Work Phone: Basophil percentageon 2021 Basophils/100 WBC (Bld) 0.3 % 0-1 [facility] Work Phone: Cholesterol [Mass/Vol] 192 mg/dL <200 [facility] Work Phone: Comment on above: <200 mg/dL Desirable 200-240 mg/dL Borderline >240 mg/dL High Risk Eosinophils/100 WBC (Bld) 5.4 % 0-5 [facility] Work Phone: Neutrophils (Bld) [#/Vol] 6.0 10*3/uL 2.0-7.7 [facility] Work Phone: Neutrophils/100 WBC (Bld) 66.2 % 47-70 [facility] Work Phone: Triglyceride [Mass/Vol] 180 mg/dL <199 [facility] Work Phone: Comment on above: The drugs N-Acetylcy steine and Metamizole may falsely depress this assay.Serum Triglycerides Reference Interval Normal <150 mg/dL Borderline high 150 - 199 mg/dL High 200 - 499 mg/dL Very High > or = 500 mg/dL WBC (Bld) [#/Vol] 9.0 10*3/uL 4.4-11.0 [facility] Work Phone: [phone] Blood erythrocytes count (nu mber/volume)on 08-23-2021 RBC (Bld) [#/Vol] 4.43 10*6/uL 4.2-5.4 [facility] Work Phone: [phone] Blood hemoglobin measurement (mass/volume)on 08-23-2021 Hemoglobin (Bld) [Mass/Vol] 12.4 g/dL 12.0-15.0 [facility] Work Phone: Blood lymphocytes/100 leukoc yteson 08-23-2021 Lymphocytes/100 WBC (Bld) 23.5 % 19-41 [facility] Work Phone: Blood monocytes/100 leukocyt eson 08-23-2021 Monocytes/100 WBC (Bld) 4.3 % 0-10 [facility] Work Phone: Blood platelet mean volumeon 08-23-2021 Platelet mean volume (Bld) [Entitic vol] 9.9 fL 6.2-12.0 [facility] Work Phone: [phone] Determination of erythrocyte mean corpuscular volume (MCV)on 08-23-2021 MCV (RBC) [Entitic vol] 88.0 fL 81-99 [facility] Work Phone: [phone] Hematocrit Auto (Bld) [Volum e fraction]on 08-23-2021 Hematocrit (Bld) [Volume fraction] 39.0 % 37-47 [facility] Work Phone: [phone] Laboratory - Hematology and Cell countson 08-23-2021 Erythrocyte distribution width (RBC) [Entitic vol] 46.0 fL 35.1-43.9 [facility] Work Phone: [phone] Erythrocyte distribution width (RBC) [Ratio] 14.3 % 11.6-14.6 [facility] Work Phone: [phone] Immature granulocytes/100 WBC (Bld) 0.300 % 0.0-0.9 [facility] Work Phone: [phone] Comment on above: IG% - Immature Granu locytes (promyelocytes, myelocytes and metamyelocytes) > 1% indicates that a LEFT SHIFT is Present. MCH (RBC) [Entitic mass] 28.0 pg 27.0-32.0 [facility] Work Phone: [phone] Nucleated RBC/100 WBC (Bld) [Ratio] 0 % 0-5 [facility] Work Phone: [phone] HbA1c (Bld) [Mass fraction] 6.3 % 4.2-6.3 [facility] Work Phone: [phone] MCHC Auto (RBC) [Mass/Vol]on 08-23-2021 MCHC (RBC) [Mass/Vol] 31.8 g/dL 32-36 [facility] Work Phone: [phone] Platelets bldon 08-23-2021 Platelets (Bld) [#/Vol] 327 10*3/uL 150-450 [facility] Work Phone: [phone] Serum or plasma cholesterol in HDL measurement (mass/volume)on 08-23-2021 Cholesterol in HDL [Mass/Vol] 44 mg/dL >40 [facility] Work Phone: Comment on above: The drugs N-Acetylcy steine and Metamizole may falsely depress this assay. Reference Range HDL <40 mg/dL Low HDL Cholesterol HDL >or= 60 mg/dL High HDL Cholesterol Serum or plasma cholesterol in VLDL measurement (mass/volume)on 08-23-2021 Cholesterol in VLDL [Mass/Vol] 36 mg/dL 5-40 [facility] Work Phone: Serum or plasma low density lipoprotein (LDL) cholesterol measurement (mass/volume)on 08-23-2021 Cholesterol in LDL [Mass/Vol] 112 mg/dL 0-130 [facility] Work Phone: Basophil percentageon 2021 Chloride [Moles/Vol] 105 mmol/L 98-107 [facility] Work Phone: Glucose [Mass/Vol] 90 mg/dL 74-106 [facility] Work Phone: Potassium [Moles/Vol] 3.4 mmol/L 3.5-5.1 [facility] Work Phone: Sodium [Moles/Vol] 138 mmol/L 136-145 [facility] Work Phone: Laboratory - Chemistry and C hemistry - challengeon 05-15-2021 CO2 [Moles/Vol] 26.0 mmol/L 21.0-32.0 [facility] Work Phone: Urea nitrogen/Creatinine [Mass ratio] 18.6 mg/mg 10-20 [facility] Work Phone: Laboratory - Hematology and Cell countson 05-15-2021 HbA1c (Bld) [Mass fraction] 6.4 % [facility] Work Phone: No Panel Informationon 05-15 Estimated GFR (MDRD) Amer 123 mL/min >60 [facility] Work Phone: Comment on above: GFR Calc Estimated GFR (MDRD) Non-Af Amer 102 mL/min >60 [facility] Work Phone: Comment on above: Non- GFR Calc Serum or plasma calcium eveline urement (mass/volume)on 05-15-2021 Calcium [Mass/Vol] 9.5 mg/dL 8.5-10.1 [facility] Work Phone: Serum or plasma creatinine m easurement (mass/volume)on 05-15-2021 Creatinine [Mass/Vol] 0.64 mg/dL 0.55-1.02 [facility] Work Phone: Comment on above: The validity of the calculated GFR & GFRAA in patients over 70 years has not been determined. Clinical correlation is essential. Serum or plasma urea nitroge n measurement (mass/volume)on 05-15-2021 Urea nitrogen [Mass/Vol] 12 mg/dL 7-18 [facility] Work Phone: Thin prep Papanicolaou smear with manual screeningon 05-15-2021 Thin prep Papanicolaou smear with manual screening 7 08-18 [facility] Work Phone: Vital Signs Date Time Vital Sign Value Performing Clinician Faci lity 01-18-2025 08:30-0400 Body mass index (BMI) [Ratio] 36.8 kg/m2 Dr. Jess White MD Work Phone: [facility] 01-18-2025 08:30-0400 Body temperature 97.5 [degF] Dr. Jess White MD Work Phone: [facility] 01-18-2025 08:30-0400 Body weight 97.[address] Jess White MD Work Phone: [facility] 01-18-2025 08:30-0400 Diastolic blood pressure 75 mm[Hg] Dr. Jess White MD Work Phone: [facility] 01-18-2025 08:30-0400 Heart rate 66 /min Dr. Jess White MD Work Phone: [facility] 01-18-2025 08:30-0400 Respiratory rate 20 /min Dr. Jess White MD Work Phone: [facility] 01-18-2025 08:30-0400 SaO2% (BldA) [Mass fraction] 95 % Dr. Jess White MD Work Phone: [facility] 01-18-2025 08:30-0400 Systolic blood pressure 121 mm[Hg] Dr. Jess White MD Work Phone: [facility] 01-05-2025 13:02-0400 Body height 162.[address] Jess White MD Work Phone: [facility] 01-05-2025 13:02-0400 Body mass index (BMI) [Ratio] 37.4 kg/m2 Dr. Jess White MD Work Phone: [facility] 01-05-2025 13:02-0400 Body weight 98.[address] Jess White MD Work Phone: [facility] 01-05-2025 13:02-0400 Diastolic blood pressure 78 mm[Hg] Dr. Jess White MD Work Phone: [facility] 01-05-2025 13:02-0400 Respiratory rate 16 /min Dr. Jess White MD Work Phone: [facility] 01-05-2025 13:02-0400 Systolic blood pressure 116 mm[Hg] Dr. Jess White MD Work Phone: [facility] 12-09-2024 11:29-0400 Body height 162.[address] Jess White MD Work Phone: [facility] 12-09-2024 11:29-0400 Body mass index (BMI) [Ratio] 37.4 kg/m2 Dr. Jess White MD Work Phone: [facility] 12-09-2024 11:29-0400 Body temperature 98.3 [degF] Dr. Jess White MD Work Phone: [facility] 12-09-2024 11:29-0400 Body weight 98.[address] Jess White MD Work Phone: [facility] 12-09-2024 11:29-0400 Diastolic blood pressure 92 mm[Hg] Dr. Jess White MD Work Phone: [facility] 12-09-2024 11:29-0400 Heart rate 73 /min Dr. Jess White MD Work Phone: [facility] 12-09-2024 11:29-0400 Respiratory rate 16 /min Dr. Jess White MD Work Phone: [facility] 12-09-2024 11:29-0400 SaO2% (BldA) [Mass fraction] 95 % Dr. Jess White MD Work Phone: [facility] 12-09-2024 11:29-0400 Systolic blood pressure 138 mm[Hg] Dr. Jess White MD Work Phone: [facility] 08-31-2024 07:51-0400 Body mass index (BMI) [Ratio] 39.1 kg/m2 Dr. Jess White MD Work Phone: [facility] 08-31-2024 07:51-0400 Body temperature 97.4 [degF] Dr. Jess White MD Work Phone: [facility] 08-31-2024 07:51-0400 Body weight 103.[address] Jess White MD Work Phone: [facility] 08-31-2024 07:51-0400 Diastolic blood pressure 81 mm[Hg] Dr. Jess Whtie MD Work Phone: [facility] 08-31-2024 07:51-0400 Heart rate 73 /min Dr. Jess White MD Work Phone: [facility] 08-31-2024 07:51-0400 Respiratory rate 20 /min Dr. Jess White MD Work Phone: [facility] 08-31-2024 07:51-0400 SaO2% (BldA) [Mass fraction] 96 % Dr. Jess White MD Work Phone: [facility] 08-31-2024 07:51-0400 Systolic blood pressure 133 mm[Hg] Dr. Jess White MD Work Phone: [facility] 07-06-2024 11:08-0400 Body height 162.[address] Jess White MD Work Phone: [facility] 07-06-2024 11:08-0400 Body mass index (BMI) [Ratio] 40.1 kg/m2 Dr. Jess White MD Work Phone: [facility] 07-06-2024 11:08-0400 Body temperature 97.7 [degF] Dr. Jess White MD Work Phone: [facility] 07-06-2024 11:08-0400 Body weight 106.[address] Jess White MD Work Phone: [facility] 07-06-2024 11:08-0400 Diastolic blood pressure 80 mm[Hg] Dr. Jess White MD Work Phone: [facility] 07-06-2024 11:08-0400 Heart rate 84 /min Dr. Jess White MD Work Phone: [facility] 07-06-2024 11:08-0400 Respiratory rate 18 /min Dr. Jess White MD Work Phone: [facility] 07-06-2024 11:08-0400 SaO2% (BldA) [Mass fraction] 98 % Dr. Jess White MD Work Phone: [facility] 07-06-2024 11:08-0400 Systolic blood pressure 138 mm[Hg] Dr. Jess White MD Work Phone: [facility] 04-01-2024 10:54-0500 Body height 162.[address] Jess White MD Work Phone: [facility] 04-01-2024 10:54-0500 Body mass index (BMI) [Ratio] 40.1 kg/m2 Dr. Jess White MD Work Phone: [facility] 04-01-2024 10:54-0500 Body temperature 97.2 [degF] Dr. Jess White MD Work Phone: [facility] 04-01-2024 10:54-0500 Body weight 106.[address] Jess White MD Work Phone: [facility] 04-01-2024 10:54-0500 Diastolic blood pressure 84 mm[Hg] Dr. Jess White MD Work Phone: [facility] 04-01-2024 10:54-0500 Heart rate 86 /min Dr. Jess White MD Work Phone: [facility] 04-01-2024 10:54-0500 Respiratory rate 16 /min Dr. Jess White MD Work Phone: [facility] 04-01-2024 10:54-0500 SaO2% (BldA) [Mass fraction] 95 % Dr. Jess White MD Work Phone: [facility] 04-01-2024 10:54-0500 Systolic blood pressure 132 mm[Hg] Dr. Jess White MD Work Phone: [facility] 06-12-2023 14:32-0500 Body height 162.[address] Jess White Work Phone: [facility] 06-12-2023 14:32-0500 Body mass index (BMI) [Ratio] 40.3 kg/m2 Dr. Jess White Work Phone: [facility] 06-12-2023 14:32-0500 Body temperature 97 [degF] Dr. Jess White Work Phone: [facility] 06-12-2023 14:32-0500 Body weight 106.[address] Jess White Work Phone: [facility] 06-12-2023 14:32-0500 Diastolic blood pressure 78 mm[Hg] Dr. Jess White Work Phone: [facility] 06-12-2023 14:32-0500 Heart rate 56 /min Dr. Jess White Work Phone: [facility] 06-12-2023 14:32-0500 Respiratory rate 16 /min Dr. Jess White Work Phone: [facility] 06-12-2023 14:32-0500 SaO2% (BldA) [Mass fraction] 98 % Dr. Jess White Work Phone: [facility] 06-12-2023 14:32-0500 Systolic blood pressure 126 mm[Hg] Dr. Jess White Work Phone: [facility] 03-27-2023 15:28-0500 Body mass index (BMI) [Ratio] 41 kg/m2 Dr. Jess White Work Phone: [facility] 03-27-2023 15:28-0500 Body temperature 98.6 [degF] Dr. Jess White Work Phone: [facility] 03-27-2023 15:28-0500 Body weight 108.[address] Jess White Work Phone: [facility] 03-27-2023 15:28-0500 Diastolic blood pressure 98 mm[Hg] Dr. Jess White Work Phone: [facility] 03-27-2023 15:28-0500 Heart rate 92 /min Dr. Jess White Work Phone: [facility] 03-27-2023 15:28-0500 Respiratory rate 16 /min Dr. Jess White Work Phone: [facility] 03-27-2023 15:28-0500 SaO2% (BldA) [Mass fraction] 95 % Dr. Jess White Work Phone: [facility] 03-27-2023 15:28-0500 Systolic blood pressure 138 mm[Hg] Dr. Jess White Work Phone: [facility] 11-14-2022 15:04-0400 Body height 162.[address] Jess White Work Phone: [facility] 11-14-2022 15:04-0400 Body mass index (BMI) [Ratio] 42.4 kg/m2 Dr. Jess White Work Phone: [facility] 11-14-2022 15:04-0400 Body temperature 96.1 [degF] Dr. Jess White Work Phone: [facility] 11-14-2022 15:04-0400 Body weight 112.[address] Jess White Work Phone: [facility] 11-14-2022 15:04-0400 Diastolic blood pressure 84 mm[Hg] Dr. Jess White Work Phone: [facility] 11-14-2022 15:04-0400 Heart rate 72 /min Dr. Jess White Work Phone: [facility] 11-14-2022 15:04-0400 Respiratory rate 18 /min Dr. Jess White Work Phone: [facility] 11-14-2022 15:04-0400 SaO2% (BldA) [Mass fraction] 98 % Dr. Jess White Work Phone: [facility] 11-14-2022 15:04-0400 Systolic blood pressure 138 mm[Hg] Dr. Jess White Work Phone: [facility] 07-23-2022 15:21-0400 Body height 162.[address] Jess White Work Phone: [facility] 07-23-2022 15:21-0400 Body mass index (BMI) [Ratio] 42 kg/m2 Dr. Jess White Work Phone: [facility] 07-23-2022 15:21-0400 Body temperature 97.6 [degF] Dr. Jess White Work Phone: [facility] 07-23-2022 15:21-0400 Body weight 111.[address] Jess White Work Phone: [facility] 07-23-2022 15:21-0400 Diastolic blood pressure 76 mm[Hg] Dr. Jess White Work Phone: [facility] 07-23-2022 15:21-0400 Heart rate 71 /min Dr. Jess White Work Phone: [facility] 07-23-2022 15:21-0400 Respiratory rate 14 /min Dr. Jess White Work Phone: [facility] 07-23-2022 15:21-0400 SaO2% (BldA) [Mass fraction] 97 % Dr. Jess White Work Phone: [facility] 07-23-2022 15:21-0400 Systolic blood pressure 142 mm[Hg] Dr. Jess White Work Phone: [facility] 04-10-2022 13:54-0500 Body temperature 98.6 [degF] Dr. Jess White Work Phone: [facility] 04-10-2022 13:54-0500 Body weight 111.[address] Jess White Work Phone: [facility] 04-10-2022 13:54-0500 Diastolic blood pressure 96 mm[Hg] Dr. Jess White Work Phone: [facility] 04-10-2022 13:54-0500 Heart rate 106 /min Dr. Jess White Work Phone: [facility] 04-10-2022 13:54-0500 Respiratory rate 16 /min Dr. Jess White Work Phone: [facility] 04-10-2022 13:54-0500 SaO2% (BldA) [Mass fraction] 96 % Dr. Jess White Work Phone: [facility] 04-10-2022 13:54-0500 Systolic blood pressure 156 mm[Hg] Dr. Jess White Work Phone: [facility] 11-29-2021 14:54-0400 Body height 162.[address] Jess White Work Phone: [facility] Work Phone: 11-29-2021 14:54-0400 Body mass index (BMI) [Ratio] 41.7 kg/m2 Dr. Jess White Work Phone: [facility] Work Phone: 11-29-2021 14:54-0400 Body temperature 97.8 [degF] Dr. Jess White Work Phone: [facility] Work Phone: 11-29-2021 14:54-0400 Body weight 110.[address] Jess White Work Phone: [facility] Work Phone: 11-29-2021 14:54-0400 Diastolic blood pressure 80 mm[Hg] Dr. Jess White Work Phone: [facility] Work Phone: 11-29-2021 14:54-0400 Heart rate 79 /min Dr. Jess White Work Phone: [facility] Work Phone: 11-29-2021 14:54-0400 Respiratory rate 16 /min Dr. Jess White Work Phone: [facility] Work Phone: 11-29-2021 14:54-0400 SaO2% (BldA) [Mass fraction] 97 % Dr. Jess White Work Phone: [facility] Work Phone: 11-29-2021 14:54-0400 Systolic blood pressure 118 mm[Hg] Dr. Jess White Work Phone: [facility] Work Phone: 08-23-2021 14:30-0400 Body mass index (BMI) [Ratio] 41.8 kg/m2 Dr. Jess White Work Phone: [facility] Work Phone: 08-23-2021 14:30-0400 Body temperature 98.7 [degF] Dr. Jess White Work Phone: [facility] Work Phone: 08-23-2021 14:30-0400 Body weight 110.[address] Jess White Work Phone: [facility] Work Phone: 08-23-2021 14:30-0400 Diastolic blood pressure 80 mm[Hg] Dr. Jess White Work Phone: [facility] Work Phone: 08-23-2021 14:30-0400 Heart rate 84 /min Dr. Jess White Work Phone: [facility] Work Phone: 08-23-2021 14:30-0400 Respiratory rate 16 /min Dr. Jess White Work Phone: [facility] Work Phone: 08-23-2021 14:30-0400 SaO2% (BldA) [Mass fraction] 97 % Dr. Jess White Work Phone: [facility] Work Phone: 08-23-2021 14:30-0400 Systolic blood pressure 136 mm[Hg] Dr. Jess White Work Phone: [facility] Work Phone: 08-23-2021 14:30-0400 Body height 162.[address] Jess White Work Phone: [facility] Work Phone: 08-23-2021 14:30-0400 Body mass index (BMI) [Ratio] 41.8 kg/m2 Dr. Jess White Work Phone: [facility] Work Phone: 08-23-2021 14:30-0400 Body temperature 98.7 [degF] Dr. Jess White Work Phone: [facility] Work Phone: 08-23-2021 14:30-0400 Body weight 110.[address] Jess White Work Phone: [facility] Work Phone: 08-23-2021 14:30-0400 Diastolic blood pressure 80 mm[Hg] Dr. Jess White Work Phone: [facility] Work Phone: 08-23-2021 14:30-0400 Heart rate 84 /min Dr. Jess White Work Phone: [facility] Work Phone: 08-23-2021 14:30-0400 Respiratory rate 16 /min Dr. Jess White Work Phone: [facility] Work Phone: 08-23-2021 14:30-0400 SaO2% (BldA) [Mass fraction] 97 % Dr. Jess White Work Phone: [facility] Work Phone: 08-23-2021 14:30-0400 Systolic blood pressure 136 mm[Hg] Dr. Jess White Work Phone: [facility] Work Phone: 05-15-2021 13:27-0500 Body mass index (BMI) [Ratio] 42.7 kg/m2 Dr. Jess White Work Phone: [facility] Work Phone: 05-15-2021 13:27-0500 Body temperature 97.3 [degF] Dr. Jess White Work Phone: [facility] Work Phone: 05-15-2021 13:27-0500 Body weight 112.[address] Jess White Work Phone: [facility] Work Phone: 05-15-2021 13:27-0500 Diastolic blood pressure 80 mm[Hg] Dr. Jess White Work Phone: [facility] Work Phone: 05-15-2021 13:27-0500 Heart rate 67 /min Dr. Jess White Work Phone: [facility] Work Phone: 05-15-2021 13:27-0500 Respiratory rate 16 /min Dr. Jess White Work Phone: [facility] Work Phone: 05-15-2021 13:27-0500 SaO2% (BldA) [Mass fraction] 99 % Dr. Jess White Work Phone: [facility] Work Phone: 05-15-2021 13:27-0500 Systolic blood pressure 120 mm[Hg] Dr. Jess White Work Phone: [facility] Work Phone: Encounters Encounter Date Encounter Type Care Provider Facility Start: 02-20-2025 ambulatory Efaxel White Facili ty:[facility] Start: 02-02-2025 ambulatory Efaxel Cassidyi ty:[facility] Start: 01-18-2025 End: 01-18-2025 Patient encounter procedure MK Baumann -[facility] Work Phone: Start: 01-18-2025 End: 01-18-[address] Jess White MD Work Phone: -[facility] Start: 01-05-2025 End: 01-05-[address] Karen Carrera MD -[facility] Work Phone: Start: 01-05-2025 End: 01-05-[address] Jess White MD Work Phone: -[facility] Start: 12-29-2024 End: 12-29-[address] Jess White MD Work Phone: -[facility] Start: 12-29-2024 End: 12-29-2024 Patient encounter procedure Campos LOZA -[facility] Work Phone: Start: 12-29-2024 End: 12-29-2024 ambulatory [facility] Facility:[facility] Start: 12-09-2024 End: 12-09-2024 Patient encounter procedure Campos LOZA -[facility] Work Phone: Start: 12-09-2024 End: 12-09-[address] Jess White MD Work Phone: -[facility] Start: 12-02-2024 End: 12-02-[address] Jess White MD Work Phone: -Laboratory Start: 12-02-2024 End: 12-02-[address] Jess White MD -Laboratory Work Phone: Start: 12-02-2024 End: 12-02-2024 ambulatory [facility] Facility:[facility] Start: 11-10-2024 End: 11-10-[address] Jess White MD Work Phone: -Laboratory Start: 11-10-2024 End: 11-10-[address] Jess White MD -Laboratory Work Phone: Start: 11-10-2024 End: 11-10-2024 ambulatory [facility] Facility:[facility] Start: 09-29-2024 End: 09-29-[address] Jess White MD Work Phone: -Sleep Lab Start: 09-29-2024 End: 09-29-2024 Patient encounter procedure MK Baumann -[facility] Work Phone: Start: 09-29-2024 End: 09-29-2024 ambulatory [facility] Facility:[facility] Start: 09-15-2024 End: 09-15-[address] Jess White MD Work Phone: [facility] Work Phone: Start: 09-15-2024 End: 09-15-2024 Patient encounter procedure [employer] Francesca Baumann -[facility] Work Phone: Start: 09-15-2024 End: 09-15-2024 ambulatory [facility] Facility:[facility] Start: 08-31-2024 End: 08-31-2024 Patient encounter procedure MK Baumann -[facility] Work Phone: Start: 08-31-2024 End: 08-31-[address] Jess White MD Work Phone: [facility] Work Phone: Start: 07-06-2024 End: 07-06-[address] Jess White MD -[facility] Work Phone: Start: 07-06-2024 End: 07-06-[address] Jess White MD [facility] Start: 07-06-2024 End: 07-06-2024 ambulatory [facility] Facility:[facility] Start: 06-29-2024 End: 06-29-[address] Jess White MD Work Phone: [facility] Work Phone: Start: 06-29-2024 End: 06-29-[address] Jess White MD -Laboratory, [place] Start: 06-29-2024 End: 06-29-2024 ambulatory [facility] Facility:[facility] Start: 04-01-2024 End: 04-01-[address] Jess White MD -[facility] Work Phone: Start: 04-01-2024 End: 04-01-2024 ambulatory [facility] Facility:[facility] Start: 03-02-2024 End: 03-02-2024 ambulatory Jess White Facility:[facility] Start: 06-24-2023 End: 06-24-[address] Jess White Work Phone: [facility] Work Phone: Start: 06-24-2023 End: 06-24-[address] Jess White Work Phone: [facility] [place] Start: 06-12-2023 End: 06-12-[address] Jess White Work Phone: [facility] Work Phone: Start: 06-10-2023 End: 06-10-[address] Jess White Work Phone: [facility] Work Phone: Start: 06-10-2023 End: 06-10-[address] Jess White Work Phone: [facility] [place] Start: 03-27-2023 End: 03-27-[address] Jess White Work Phone: [facility] Work Phone: Start: 02-20-2023 End: 02-20-2023 Encounter for general adult medical examination without abnormal findings Dr. Jess White Work Phone: [facility] Start: 02-20-2023 End: 02-20-[address] Jess White Work Phone: [facility] Work Phone: Start: 11-14-2022 End: 11-14-[address] Jess White Work Phone: [facility] Work Phone: Start: 11-14-2022 End: 11-14-[address] Jess White Work Phone: [facility] Work Phone: Start: 09-09-2022 End: 09-09-[address] Jess White Work Phone: [facility] Work Phone: Start: 08-05-2022 End: 08-05-[address] Jess White Work Phone: [facility] Work Phone: Start: 07-23-2022 End: 07-23-[address] Jess White Work Phone: [facility] Work Phone: Start: 07-23-2022 End: 07-23-[address] Jess White Work Phone: [facility] Start: 04-10-2022 End: 04-10-[address] Jess White Work Phone: [facility]Laboratory, Spec[facility] Start: 11-29-2021 End: 11-29-[address] Jess White Work Phone: [facility] Work Phone: Start: 11-29-2021 End: 11-29-[address] Jess White Work Phone: [facility] Start: 09-03-2021 End: 09-03-[address] Jess White Work Phone: [facility] Start: 08-23-[address] Jess White Work Phone: [facility] Start: 08-23-2021 End: 08-23-2021 Encounter for general adult medical examination without abnormal findings Dr. Jess White Work Phone: [facility] Start: 08-23-2021 End: 08-23-[address] Jess White Work Phone: [facility] Start: 05-15-2021 End: 05-15-[address] Jess White Work Phone: [facility], [facility] Procedures Date Procedure Procedure Detail Performing Clinician Start: 12-29-2024 Screening mammography James White MD Work Phone: Start: 11-10-2024 Vitamin D, 25-hydrox y measurement Dr. Jess White MD Work Phone: Comment on above: Vitamin D StatusDefi ciency: <20 ng/mL (50nmol/L)Insufficiency: 20-30 ng/mL (50-75 nmol/L)Sufficiency: 30-100 ng/mL (75-250 nmol/L)Toxicity: >100 ng/mL (>250 nmol/L) Start: 09-09-2022 Screening mammography James White Work Phone: Start: 08-05-2022 Plain x-ray of wrist Dr Audelia White Work Phone: Start: 09-03-2021 Screening mammography James White Work Phone: H/O: hysterectomy History of hysterectomy Dr. Jess White Work Phone: History of cholecystectomy History of cholecystectomy Dr. Jess White Work Phone: History of tonsillectomy History of tonsi llectomy Dr. Jess White Work Phone: Plan of Treatment Date Care Activity Detail Author Start: 02-06-2025 Colonoscopy [facility] Start: 02-06-2025 [facility] Start: 02-02-2025 [facility] Start: 12-09-2024 Colonoscopy [facility] Start: 12-09-2024 [facility] Start: 07-23-2022 Patient referral [facility] Work Phone: Basic metabolic 2008 panel with ionized calcium - Serum or Plasma [facility] Hemoglobin A1c/Hemog lobin.total in Blood [facility] MG Breast - bilateral Screening [facility] MG Breast - bilateral Screening [facility] referral [facility] Work Phone: Potassium [Moles/vol ume] in Serum or Plasma [facility] T4 free measurement [facility] Thyroid stimulating hormone measurement [facility] Viral nucleic acid assay [facility] Immunizations Immunization Date Immunization Notes Care Provider Fa bernice 12-25-2023 influenza, injectabl e, madin katarzyna canine kidney, preservative free Dr. Jess White MD Work Phone: [facility] 02-20-2023 influenza, injectabl e, quadrivalent, preservative free Dr. Jess White Work Phone: [facility] 02-21-2022 influenza, injectabl e, quadrivalent, preservative free Dr. Jess White Work Phone: [facility] 02-21-2022 influenza, seasonal, injectable Dr. Jess White Work Phone: [facility] 02-15-2020 Flucelvax Quad [id number] (PF) (flu vac qs 2020(4 yr up)CD(PF)) 60 mcg ([address] Jess White Work Phone: [facility] Work Phone: 02-15-2020 influenza, injectable,quadrivalent , preservative free, pediatric Dr. Jess White Work Phone: [facility] Payers Date Payer Category Payer Unknown [id number] 6a [id number] 2024 Self-pay [id number] 2023 Unknown [id number] 2016 Unknown [id number] 21 [id number] Unknown [id number] 2.16.8 [id number] Unknown [id number] 2.16.8 [id number] Unknown [id number] 2.16.8 [id number] Unknown [id number] 2.16.8 [id number] Unknown [id number] 2.16.8 [id number] Unknown [id number] 2.16.8 [id number] Unknown [id number] 2.16.8 [id number] Unknown [id number] 2.16.8 [id number] Unknown [id number] 2.16.8 [id number] Unknown [id number] 2.16.8 [id number] Unknown [id number] 2.16.8 [id number] Unknown [id number] 2.16.8 [id number] Unknown [id number] 2.16.8 [id number] Unknown [id number] 2.16.8 [id number] Unknown [id number] 2.16.8 [id number] Social History Date Type Detail Facility Start: 08-23-2021 End: 06-12-2023 Tobacco smoking status NHIS Unknown if ever smoked [facility] Start: 1965 Sex Assigned At Female [facility] Start: 06-12-2023 End: 12-09-2024 Tobacco smoking status NHIS Never smoked tobacco (finding) [facility] Start: 07-04-2024 Sex Female (finding) [facility] Sex Female [facility] Medical Equipment Procedure Code Equipment Code [...] 04-30-2020 [facility] Start: 04-30-2020 End: 05-16-2020 Clinical Notes 04-01-2024 to 01-18-2025 Note Date & Type Note Facility 01-18-2025 Progress note [facility] 01-18-2025 Progress note Note Date/Time January 18, 2025 2:53pm [facility] [address] [place] [address] OFFICE VISIT Date of Service: 01/18/25 MR#: [id number] Acct: [id number] Name: LINNEA FLYNN Rep #: [id number] : 1965 Provider: Francesca olvera NP Age/Sex: 59/F Location: [facility].PMW Status: Signed Assessment and Plan Assessment and Plan (1) OSMIN (obstructive sleep apnea): Status: Chronic Plan: The apnea appears to be well-controlled along with a nocturnal oxygenation. I have recommended that she work with RT for PAP education and mask fit and also for the RT to look over her device to determine if it is functioning properly asthe BiPAP device may be broken. It appears that there is a significant noise coming from the device and it is disturbing her sleep onset. If the device is outdated and need replaced then a prescription will be sent to her vendor to receive a replacement device. The patient is agreeable to proceed in this direction although she does have some hesitancy due to the concerns for [id number] costs for a new device with the current insurance plan. The patient understands the importance of treating sleep apnea and has been compliant with therapy. At this point I recommend a 6-month follow-up. The patient understands that she should advance her follow-up if she has worsening symptoms or is not able to use her PAP therapy. (2) Major depressive disorder: Status: Chronic Qualifiers: Active/Remission status: remission status unspecified Major depression recurrence: unspecified whether recurrent Qualified Code(s): F32.9 - Major depressive disorder, single episode, unspecified Plan: Complicates exam, plan, care and prognosis. Continue to work on optimizing sleep as it can worsen her mood. (3) Obesity: Status: Chronic Qualifiers: Body mass index: BMI 39.0-39.9 Obesity classification: adult class 2 (BMI 35 - 39.9) Obesity type: due to excess calories Serious obesity comorbidity presence: with serious comorbidity Qualified Code(s): E66.812 - Obesity, class 2; E66.01 - Morbid (severe) obesity due to excess calories; Z68.39 - Body mass index [BMI] 39.0-39.9, adult Plan: Weight loss is warranted through prudent dieting and daily exercise. Orders: Orders Self Mgmnt Educ & Training 02/02/25 G47.33 - Obstructive sleep apnea (adult) (pediatric) Plan Details Follow Up: 6 Months (LMR) HPI HPI Comments Details: Patient is a 59-year-old female who presents today for follow-up of sleep apnea. She is ambulatory and currently on room air. She has not recently been seen in the ED or urgent care for any respiratory illness. She has not required any antibiotics or prednisone for breathing problems. She is using her PAP device. She reports that she occasionally feels rested. She does nap on occasions. She does experience significant oral dryness. She reports she is using a nasal mask. She indicates that she is not able to use a fullface style mask. She does have occasional headaches in the morning. She denies nocturia. Her mask is leaking as she is seeing a red frown in the morning but she does not feel like it is coming from her mask but from her machine. She reports that her machine is sounding loud. Like there is a fan blowing. She continues to feel frustrated about the noise coming from the machine. She reports that it is difficult for her to fall asleep with this noise. She has worked with RT and trialed a different mask but reports that it was not better than the previous mask that she was using. Documentation reviewed with patient today includes: Nocturnal oximetry from October 03, 2024 shows an average saturation of 96.23% and 0 time below 88%. Compliance download from January 16, 2025 shows 97% compliance with therapy, using the device 7 hours and 11 minutes nightly average. She has a BiPAP at 18 over 14 cm. There is a large air leak present but AHI is 2.3. The patient did work with RT 09/15/2024 for mask fit. Intake Vital Signs 3 12/09/24 12:33 01/18/25 08:30 Height 5 ft 4 in 5 ft 4 in Weight: 215 lb BMI 36.8 BP 121/75 H Blood Pressure Location Rt brachial Position Sitting Respiration 20 H Pulse 66 Pulse Source Monitor Temp 97.5 F L Temperature Source Temporal Artery Pulse Oximetry (%) 95 Oxygen Delivery Method room air Intake Visit Reasons: 4 M FU Data Security Analyst Required: No DME Vendor: [employer] Accompanied by: Self Is patient in pain?: No Allergies No Known Allergies Allergy (Verified 01/18/25 14:25) Medications ?Medication ?Instructions ?Recorded ?Confirmed ?Type multivitamin with iron (Daily 1 tab PO DAILY 09/14/19 01/18/25 History Vitamin with Iron tablet) blood sugar diagnostic #50 ea 11/16/19 01/18/25 Rx ergocalciferol (vitamin D2) 1,250 50,000 unit PO QWEEK #12 caps 12/09/24 01/18/25 Rx mcg (50,000 unit) capsule fluoxetine 20 mg capsule (Prozac) 20 mg PO DAILY #90 c aps 12/09/24 01/18/25 Rx fluoxetine 40 mg capsule See Rx Instructions .Route 0 12/09/24 01/18/25 Rx .COMPLEX #90 caps hydrochlorothiazide 25 mg tablet 12.5 mg (1/2 x 25 mg) PO DAILY #45 12/09/24 01/18/25 Rx tabs iron-vitamin B complex with C 27 tab PO DAILY 12/09/24 01/18/25 History mg-300 mg tablet melatonin 10 mg capsule 10 mg PO HS PRN 12/09/24 History metformin 500 mg tablet,extended 500 mg PO BID #180 ta bs 12/09/24 01/18/25 Rx release 24 hr omeprazole magnesium 20 mg 20 mg PO DAILY #90 tabs 08/2801/18/25 Rx tablet,delayed release (Prilosec OTC) potassium chloride 20 mEq 20 meq PO BID #180 tabs 08/2801/18/25 Rx tablet,extended release rhubarb root extract 4 mg tablet mg PO DAILY 12/09/24 01/18/25 History (Estroven Complete Menopause Relief) topiramate 100 mg tablet (Topamax) 100 mg PO BID #180 tabs 12/09/24 01/18/25 Rx trazodone 50 mg tablet 25 mg (1/2 x 50 mg) PO QHS P RN 12/09/24 01/18/25 Rx insomnia #30 tabs semaglutide (weight loss) 0.25 0.25 mg subcut QWEEK 01/18/25 History mg/0.5 mL subcutaneous pen injector [facility] Medical History Insomnia High anion gap Dermatitis Right elbow pain Hypokalemia URI (upper [...] never substance use type: does not use Review of Systems Resp Respiratory: Yes as per HPI Exam Const Constitutional: Positive cooperative, in no acute respiratory distress, healthy appearing, well developed, well nourished and obese; Negative ill appearing Head Head: Yes normocephalic and Yes atraumatic Eyes Eye: Positive clear conjunctiva Ears Ear: Positive hearing normal and external ears normal Nose Nose: Yes external nose normal Mouth Mouth: Positive oral mucosae normal and good dentition Neck Neck: Positive normal visual inspection and trachea midline Chest Wall Chest: Positive symmetric chest movement Resp lung sounds: Positive clear to auscultation, good air exchange, normal expiratory time and normal respiratory effort; Negative wheezes, rhonchi, rales or use of accessory muscles Cardio Cardiac: Positive regular rate and regular rhythm; Negative murmur GI GI: Positive normal to inspection, normal bowel sounds and obese Genitourinary: Positive deferred Musc Musculoskeletal: Positive steady gait and ROM normal Skin Pulmonary Skin Exam: Positive intact; Negative rash or erythema Pulses Pulse: Yes radial pulses present Extremities Extremities: Yes capillary refill normal, No clubbing and No cyanosis Neuro Neurologic: Yes no focal neuro deficits and Yes normal cognition Psych Appearance: Positive grossly normal Mental Status: Positive mental status grossly normal Mood: Positive congruent mood Affect: Positive normal affect Coding Level of Care Code Off vis,est,level 4 Diagnoses OMSIN (obstructive sleep apnea) G47.33 Major depressive disorder, remission status unspecified, unspecified whether recurrent F32.9 Active/Remission status: remission status unspecified Major depression recurrence: unspecified whether recurrent Class 2 severe obesity due to excess calories with serious comorbidity and body mass index (BMI) of 39.0 to 39.9 in adult E66.812; E66.01; Z68.39 Body mass index: BMI 39.0-39.9 Obesity classification: adult class 2 (BMI 35 - 39.9) Obesity type: due to excess calories Serious obesity comorbidity presence: with serious comorbidity 01/18/252213 <Electronically signed by Francesca st [employer]-C> Date _ Francesca Baumann [employer] Cosigner Signature: Date (if applicable) CC: ~ [facility] Work Phone: 1(145) 246-934609-05-2025 Evaluation note* Diagnosis Onset Date Resolution Status Admit Date Breast cancer screening acute S eptember 2024 11:13am Colon cancer screening acute Se ptember 2024 11:13am High anion gap acute December 09, 2024 11:13am Insomnia acute December 09, 2024 11:13am Anxiety and depression chronic Se ptember 2024 11:13am [facility] Work Phone: 1([phone]) 986-228409-05-2025 Evaluation note* Diagnosis Onset Date Resolution Status Admit Date Breast cancer screening acute S eptember 2024 11:13am Colon cancer screening acute Se ptember 2024 11:13am High anion gap acute December 09, 2024 11:13am Insomnia acute December 09, 2024 11:13am Anxiety and depression chronic Se ptember 2024 11:13am Change in bowel habits acute Oc tober 2024 12:45pm GERD (gastroesophageal reflux disease) acute January 05 12:45pm [facility] Work Phone: 1(365) 528-792909-05-2025 Evaluation note* Diagnosis Onset Date Resolution Status Admit Date Breast cancer screening acute S eptember 2024 11:13am Colon cancer screening acute Se ptember 2024 11:13am High anion gap acute December 09, 2024 11:13am Insomnia acute December 09, 2024 11:13am Anxiety and depression chronic Se ptember 2024 11:13am Change in bowel habits acute Oc tober 2024 12:45pm GERD (gastroesophageal reflux disease) acute January 05 12:45pm Major depressive disorder chronic January 18, 2025 2:00pm Obesity chronic January 18, 2025 2:00pm OSMIN (obstructive sleep apnea) chronic January 18 2:00pm [facility] Work Phone: 1(507) 434-584505-28-2025 Evaluation note* Diagnosis Onset Date Resolution Status Admit Date Major depressive disorder chronic August 31, 2024 11:10am Obesity chronic August 31, 2024 11:10am OSMIN (obstructive sleep apnea) chroni c August 31, 2024 11:10am [facility] Work Phone: 1(370) 877-710005-28-2025 Evaluation note* Diagnosis Onset Date Resolution Status Admit Date Major depressive disorder chronic August 31, 2024 11:10am Obesity chronic August 31, 2024 11:10am OSMIN (obstructive sleep apnea) chronic August 31, 2024 1 1:10am Breast cancer screening acute S eptember 2024 11:13am Colon cancer screening acute Se ptember 2024 11:13am High anion gap acute December 09, 2024 11:13am Insomnia acute December 09, 2024 11:13am Anxiety and depression chronic Se ptember 2024 11:13am Obesity chronic December 09, 2024 11:13am [facility] Work Phone: 1(642) 713-721104-02-2025 Evaluation note* Diagnosis Onset Date Resolution Status Admit Date Health care maintenance acute A pril 2024 11:11am Anxiety and depression chronic Ap ril 2024 11:11am BMI 40.0-44.9, adult chronic Apri l 2024 11:11am Hypertension chronic July 06, 025 11:11am Type 2 diabetes mellitus chronic July 06, 2024 11:11am Major depressive disorder chronic August 31, 2024 11:10am Obesity chronic August 31, 2024 11:10am OSMIN (obstructive sleep apnea) chroni c August 31, 2024 11:10am [facility] Work Phone: 1(875) 951-380612-27-2024 Evaluation note* Diagnosis Onset Date Resolution Status Admit Date Anxiety and depression chronic De cem2023 10:49am Hypertension chronic March 10:49am Musculoskeletal back pain chronic April 01, 2024 10:49am Type 2 diabetes mellitus chronic April 01, 2024 10:49am [facility] Work Phone: Chief complaint+Reason for visit Narrative* Chief Complaint Possible covid, high temp 4 M FU Reason for Visit Exposure to COVID-19 virus Anxiety and depression Hypertension Pain of left thumb Type 2 diabetes mellitus [facility] Work Phone: Evaluation note* Diagnosis Onset Date Resolution Status Anxiety and depression chron ic Hypertension chronic Type 2 diabetes mellitus [facility] Health care maintenance acut e Anxiety and depression chron ic Type 2 diabetes mellitus [facility] Work Phone: Evaluation note* Diagnosis Onset Date Resolution Status Health care maintenance acut e Anxiety and depression chron ic Type 2 diabetes mellitus [facility] Musculoskeletal back pain ac sharda Screening for thyroid disorder acute Vitamin D deficiency acute Hypertension chronic Type 2 diabetes mellitus [facility] Work Phone: Evaluation note* Diagnosis Onset Date Resolution Status Exposure to COVID-19 virus n oneactive Anxiety and depression chron ic Hypertension chronic Pain of left thumb chronic Type 2 diabetes mellitus [facility] Work Phone: Evaluation note* Diagnosis Onset Date Resolution Status Anxiety and depression chron ic Hypertension chronic Pain of left thumb chronic Type 2 diabetes mellitus [facility] Osteoarthritis of carpometacarpal joint of left thumb acute Pain of left thumb chronic URI (upper respiratory infection) acute Anxiety and depression chron ic BMI 40.0-44.9, adult chronic Hypertension chronic Type 2 diabetes mellitus [facility] Work Phone: Evaluation note* Diagnosis Onset Date Resolution Status Health care maintenance acut e Anxiety and depression chron ic BMI 40.0-44.9, adult chronic Hypertension chronic Type 2 diabetes mellitus chr onic Anxiety and depression chron ic BMI 40.0-44.9, adult chronic Type 2 diabetes mellitus chr onic Hypokalemia acute Right elbow pain acute BMI 40.0-44.9, adult chronic Hypertension chronic Type 2 diabetes mellitus [facility] Work Phone: Evaluation note* Diagnosis Onset Date Resolution Status Anxiety and depression chron ic BMI 40.0-44.9, adult chronic Type 2 diabetes mellitus chr onic Hypokalemia acute Right elbow pain acute BMI 40.0-44.9, adult chronic Hypertension chronic Type 2 diabetes mellitus [facility] Work Phone: Hospital Discharge instructionsAmbulatory Orders* General Surgery Location: None Selected [facility] Work Phone: Reason for referral (narrative)No reason for referral information availableWCleveland [facility] Foundation Work Phone: Chief Complaint and Reason for [...] Health care maintena nce Anxiety and depression Type 2 diabetes [...] apnea (adult) (pediatri September 15, 2024 1:00pm Chief Complaint Admit Date 3 M FU July 06, 2024 11:1 1am 6 M FU August 31, 2024 11:10 am G47.33 - Obstructive sleep apnea (adult) (pediatri September 15, 2024 1:00pm try a traditional full face mask September 292024 1:00pm Chief Complaint Admit Date 6 M FU August 31, 2024 11:10 am G47.33 - Obstructive sleep apnea (adult) (pediatri September 15, 2024 1:00pm try a traditional full face mask September 292024 1:00pm Reason for Visit Admit Date Major depressive disorder August 31, 2024 11:10am Obesity August 31, 2024 11:10 am OSMIN (obstructive sleep apnea) August 31, 2024 11:10am Chief Complaint Admit Date 6 M FU August 31, 2024 11:10 am G47.33 - Obstructive sleep apnea (adult) (pediatri September 15, 2024 1:00pm try a traditional full face mask September 292024 1:00pm E ORDER December 02, 2024 9: 53am 5 M December 09, 2024 11:13am Reason for Visit Admit Date Major depressive disorder August 31, 2024 11:10am Obesity August 31, 2024 11:10 am OSMIN (obstructive sleep apnea) August 31, 2024 11:10am Breast cancer screening December 09 11:13am Colon cancer screening December 09 11:13am High anion gap December 09, 2024 11:13am Insomnia December 09, 2024 11:13am Anxiety and depression December 09 11:13am Obesity December 09, 2024 11:13am Chief Complaint Admit Date G47.33 - Obstructive sleep apnea (adult) (pediatri September 15, 2024 1:00pm try a traditional full face mask September 292024 1:00pm E ORDER December 02, 2024 9: 53am 5 M December 09, 2024 11:13am breast cancer screening December 29, 2024 3:38pm CHANGE IN BOWELS January 05, 2025 12 :45pm Reason for Visit Admit Date Breast cancer screening December 09, 11:13am Colon cancer screening December 09 11:13am High anion gap December 09, 2024 11:13am Insomnia December 09, 2024 11:13am Anxiety and depression December 09 11:13am Reason for Visit Admit Date Breast cancer screening December 09, 11:13am Colon cancer screening December 09 11:13am High anion gap December 09, 2024 11:13am Insomnia December 09, 2024 11:13am Anxiety and depression December 09 11:13am Change in bowel habits January 05, 2025 12:45pm GERD (gastroesophageal reflux disease) O ctober 2024 12:45pm Chief Complaint Admit Date E ORDER December 02, 2024 9: 53am 5 M December 09, 2024 11:13am breast cancer screening December 29, 2024 3:38pm CHANGE IN BOWELS January 05, 2025 12 :45pm 4 M FU January 18, 2025 2 :00pm Reason for Visit Admit Date Breast cancer screening December 09, 2 025 11:13am Colon cancer screening December 09 11:13am High anion gap December 09, 2024 11:13am Insomnia December 09, 2024 11:13am Anxiety and depression December 09 11:13am Change in bowel habits January 05, 2025 12:45pm GERD (gastroesophageal reflux disease) O ctober 2024 12:45pm Major depressive disorder January 18, 2025 2:00pm Obesity January 18, 2025 2 :00pm OSMIN (obstructive sleep apnea) January 182024 2:00pm Family History No Family History Records Found [...] Dates Dr. Jess White MD Primary Care Catalino gallegos, Attending Provider, Referring Provider Active Team Status: [...] August 31, 2024 End: August 31, 2024 Francesca M Rufener , [employer]-C Attending Provider Active Start: August 31, 2024 End: August 31, 2024 Team Status: Active Member Role Status Dates Dr. Jess White MD Primary Care Provider Active Team Status: Inactive Member Role Status Dates Dr. Jess White MD Primary Care Provider Active Start: September 15, 2024 End: September 15, 2024 KRYSTA OchoaC Attending Provider Active Start: September 15, 2024 End: September 15, 2024 ERON Ochoa Referring Provider Active Start: September 15, 2024 End: September 15, 2024 Team Status: Active Member Role/Relationship Status Dates Dr. Jess White MD Primary Care Provider Active Team Status: Inactive Member Role/Relationship Status Dates Dr. Jess White MD Primary Care Provider Active Start: July 06, 2024 End: July 06, 2024 Dr. Jess White MD Attending Provider Active Start: July 06, 2024 End: July 06, 2024 Dr. Jess White MD Referring Provider Active Start: July 06, 2024 End: July 06, 2024 Team Status: Inactive Member Role/Relationship Status Dates Dr. Jess White MD Primary Care Provider Active Start: August 31, 2024 End: August 31, 2024 Dr. Jess White MD Referring Provider Active Start: August 31, 2024 End: August 31, 2024 ERON Ochoa Attending Provider Active Start: August 31, 2024 End: August 31, 2024 Team Status: Inactive Member Role/Relationship Status Dates Dr. Jess White MD Primary Care Provider Active Start: September 15, 2024 End: September 15, 2024 ERON Ochoa Attending Provider Active Start: September 15, 2024 End: September 15, 2024 ERON Ochoa Referring Provider Active Start: September 15, 2024 End: September 15, 2024 Team Status: Inactive Member Role/Relationship Status Dates Dr. Jess White MD Primary Care Provider Active Start: September 29, 2024 End: September 29, 2024 Francesca M Rufener , [employer]-C Attending Provider Active Start: September 29, 2024 End: September 29, 2024 Team Status: Inactive Member Role/Relationship Status Dates Dr. Jess White MD Primary Care Provider Active Start: August 31, 2024 End: August 31, 2024 Dr. Jess White MD Referring Provider Active Start: August 31, 2024 End: August 31, 2024 Francesca Baumann NP-C Attending Provider Active Start: August 31, 2024 End: August 31, 2024 Team Status: Inactive Member Role/Relationship Status Dates Dr. Jess White MD Primary Care Provider Active Start: September 15, 2024 End: September 15, 2024 KRYSTA OchoaC Attending Provider Active Start: September 15, 2024 End: September 15, 2024 KRYSTA OchoaC Referring Provider Active Start: September 15, 2024 End: September 15, 2024 Team Status: Inactive Member Role/Relationship Status Dates Dr. Jess White MD Primary Care Provider Active Start: September 29, 2024 End: September 29, 2024 KRYSTA OchoaC Attending Provider Active Start: September 29, 2024 End: September 29, 2024 Team Status: Inactive Member Role/Relationship Status Dates Dr. Jess White MD Primary Care Provider Active Start: November 10, 2024 End: November 10, 2024 Dr. Jess White MD Attending Provider Active Start: November 10, 2024 End: November 10, 2024 Dr. Jess White MD Referring Provider Active Start: November 10, 2024 End: November 10, 2024 Team Status: Active Member Role/Relationship Status Dates Dr. Jess White MD Primary Care Provider Active Start: December 02, 2024 Dr. Jess White MD Attending Provider Active Start: December 02, 2024 Dr. Jess White MD Referring Provider Active Start: December 02, 2024 Team Status: Inactive Member Role/Relationship Status Dates DAGO Dowling Attending Provider Active St art: December 09, 2024 End: December 09, 2024 Dr. Jess White MD Primary Care Provider Active Start: December 09, 2024 End: December 09, 2024 Dr. Jess White MD Referring Provider Active Start: December 09, 2024 End: December 09, 2024 Team Status: Inactive Member Role/Relationship Status Dates Dr. Jess White MD Primary Care Provider Active Start: December 02, 2024 End: December 02, 2024 Dr. Jess White MD Attending Provider Active Start: December 02, 2024 End: December 02, 2024 Dr. Jess White MD Referring Provider Active Start: December 02, 2024 End: December 02, 2024 Team Status: Active Member Role/Relationship Status Dates Dr. Jess White MD Primary care physician Activ e Team Status: Inactive Member Role/Relationship Status Dates Dr. Jess White MD Primary care physician Activ e Start: September 15, 2024 End: September 15, 2024 ERON Ochoa Attending physician Active Start: September 15, 2024 End: September 15, 2024 ERON Ochoa Referring Provider Active Start: September 15, 2024 End: September 15, 2024 Team Status: Inactive Member Role/Relationship Status Dates Dr. Jess White MD Primary care physician Activ e Start: September 29, 2024 End: September 29, 2024 ERON Ochoa Attending physician Active Start: September 29, 2024 End: September 29, 2024 Team Status: Inactive Member Role/Relationship Status Dates Dr. Jess White MD Primary care physician Activ e Start: November 10, 2024 End: November 10, 2024 Dr. Jess White MD Attending physician Active Start: November 10, 2024 End: November 10, 2024 Dr. Jess White MD Referring Provider Active Start: November 10, 2024 End: November 10, 2024 Team Status: Inactive Member Role/Relationship Status Dates Dr. Jess White MD Primary care physician Activ e Start: December 02, 2024 End: December 02, 2024 Dr. Jess White MD Attending physician Active Start: December 02, 2024 End: December 02, 2024 Dr. Jess White MD Referring Provider Active Start: December 02, 2024 End: December 02, 2024 Team Status: Inactive Member Role/Relationship Status Dates DAGO Dowling Attending physician Active S tart: December 09, 2024 End: December 09, 2024 Dr. Jess White MD Primary care physician Activ e Start: December 09, 2024 End: December 09, 2024 Dr. Jess White MD Referring Provider Active Start: December 09, 2024 End: December 09, 2024 Team Status: Active Member Role/Relationship Status Dates Dr. Jess White MD Primary care physician Activ e Start: December 29, 2024 Campos LOZA PA Attending physician Active S tart: December 29, 2024 Campos LOZA PA Referring Provider Active St art: December 29, 2024 Team Status: Inactive Member Role/Relationship Status Dates Dr. Jess White MD Primary care physician Activ e Start: January 05, 2025 End: January 05, 2025 Dr. Jess White MD Referring Provider Active Start: January 05, 2025 End: January 05, 2025 Dr. Karen Carrera MD Attending physician Active Start: January 05, 2025 End: January 05, 2025 Team Status: Inactive Member Role/Relationship Status Dates Dr. Jess White MD Primary care physician Activ e Start: December 29, 2024 End: December 29, 2024 Campos LOZA PA Attending physician Active S tart: December 29, 2024 End: December 29, 2024 Campos LOZA PA Referring Provider Active St art: December 29, 2024 End: December 29, 2024 Team Status: Inactive Member Role/Relationship Status Dates Dr. Jess White MD Primary care physician Activ e Start: November 10, 2024 End: November 10, 2024 Dr. Jess White MD Attending physician Active Start: November 10, 2024 End: November 10, 2024 Dr. Jess White MD Referring Provider Active Start: November 10, 2024 End: November 10, 2024 Team Status: Inactive Member Role/Relationship Status Dates Dr. Jess White MD Primary care physician Activ e Start: December 02, 2024 End: December 02, 2024 Dr. Jess White MD Attending physician Active Start: December 02, 2024 End: December 02, 2024 Dr. Jess White MD Referring Provider Active Start: December 02, 2024 End: December 02, 2024 Team Status: Inactive Member Role/Relationship Status Dates DAGO Dowling Attending physician Active S tart: December 09, 2024 End: December 09, 2024 Dr. Jess White MD Primary care physician Activ e Start: December 09, 2024 End: December 09, 2024 Dr. Jess White MD Referring Provider Active Start: December 09, 2024 End: December 09, 2024 Team Status: Inactive Member Role/Relationship Status Dates Dr. Jess White MD Primary care physician Activ e Start: December 29, 2024 End: December 29, 2024 DAGO Dowling Attending physician Active S tart: December 29, 2024 End: December 29, 2024 DAGO Dowling Referring Provider Active St art: December 29, 2024 End: December 29, 2024 Team Status: Inactive Member Role/Relationship Status Dates Dr. Jess White MD Primary care physician Activ e Start: January 05, 2025 End: January 05, 2025 Dr. Jess White MD Referring Provider Active Start: January 05, 2025 End: January 05, 2025 Dr. Karen Carrera MD Attending physician Active Start: January 05, 2025 End: January 05, 2025 Team Status: Inactive Member Role/Relationship Status Dates Dr. Jess White MD Primary care physician Activ e Start: January 18, 2025 End: January 18, 2025 Dr. Jess White MD Referring Provider Active Start: January 18, 2025 End: January 18, 2025 ERON Ochoa Attending physician Active Start: January 18, 2025 End: January 18, 2025 INFORMATION SOURCE (unrecogn ized section and content) DATE CREATED AUTHOR 02/07/2025 [facility] FOR RECORDS PERTAINING TO PATIENTS WHO ARE [...] BE BASED ON THE PRIMARY CLINICAL RECORDS. [facility]. provides no warranty or guarantee of the accuracy or completeness of information in this document.
[2025-02-20] MEDS: Lactated Ringers 1,000 ML 15 ML IV (06:47)
--- NOTE | 2025-02-20 07:18 | H&P.OPEN ---
HPI - General General Date of Service: 02/20/25 HPI Narrative LINNEA FLYNN, is a 59 F who presents for EGD and colonoscopy. Patient still denies any symptoms on her reflux medication. Patient also denies changes of her bowel since her office visit. 01/05/25 [facility] HPI: 59-year-old female presents due to change of bowel habits. Patient states that since she has been having diarrhea. Typically she will have no bowel movement for 2 or 3 days and then start having diarrhea. Patient did state that today she had a normal formed stool. Patient has also been on omeprazole 20 mg p.o. daily for about 3 years denies any symptoms previous symptoms were burning up her esophagus. Patient states she did get a Cologuard less than a year ago that was negative. Patient states recently she has been under increased stress as she was caring for her stepdad who did of colon cancer recently. Patient does admit to having some mid abdominal/left-sided abdominal pain when she has constipation. Patient has not tried any laxatives. Patient is unsure exactly how much fiber she gets daily. [facility] Medical History (Updated 02/16/25 @ 10:21 by Kimberly Rodríguez) Wears glasses Post-menopausal Anxiety Diabetes Back pain Migraine headache Dietary restriction Gastric reflux Non-smoker BiPAP (biphasic positive airway pressure) dependence Shortness of breath on exertion Pain of left thumb Major depressive disorder Hypertension Home Medications Medication Instructions Recorded Last Taken Type multivitamin with iron (Daily 1 tab PO DAILY 09/14/19 Unknown History Vitamin with Iron tablet) blood sugar diagnostic #50 ea 11/16/19 Unknown Rx ergocalciferol (vitamin D2) 1,250 50,000 unit PO QWEEK #12 caps 12/09/24 Unknown Rx mcg (50,000 unit) capsule fluoxetine 20 mg capsule (Prozac) 20 mg PO DAILY #90 caps 12/09/24 Unknown Rx hydrochlorothiazide 25 mg tablet 12.5 mg (1/2 x 25 mg) PO DAILY #45 12/09/24 Unknown Rx tabs iron-vitamin B complex with C 27 1 tab PO DAILY 12/09/24 02/16/25 History mg-300 mg tablet melatonin 10 mg capsule 10 mg PO HS PRN sleep 12/09/24 Unknown History metformin 500 mg tablet,extended 500 mg PO BID #180 tabs 12/09/24 Unknown Rx release 24 hr omeprazole magnesium 20 mg 20 mg PO DAILY #90 tabs 12/09/24 Unknown Rx tablet,delayed release (Prilosec OTC) potassium chloride 20 mEq 20 meq PO BID #180 tabs 12/09/24 Unknown Rx tablet,extended release rhubarb root extract 4 mg tablet 4 mg PO DAILY 12/09/24 Unknown History (Estroven Complete Menopause Relief) topiramate 100 mg tablet (Topamax) 100 mg PO BID #180 tabs 12/09/24 Unknown Rx semaglutide (weight loss) 0.25 0.25 mg subcut DILL 01/05/25 02/10/25 History mg/0.5 mL subcutaneous pen injector trazodone 50 mg tablet 25 mg (1/2 x 50 mg) PO QHS PRN 01/30/25 Unknown Rx insomnia #30 tabs fluoxetine 40 mg capsule 40 mg PO DAILY 02/16/25 Unknown History Allergy/AdvReac Type Severity Reaction Status Date / Time No Known Allergies Allergy Verified 02/20/25 06:35 Family History Father Hypertension Diabetes Mother Hypertension Diabetes Myocardial infarction Lupus (systemic lupus erythematosus) Sister Diabetes Surgical History History of tonsillectomy History of hysterectomy History of cholecystectomy Social History Smoking Status: Never smoker second hand exposure: No alcohol intake: never substance use type: does not use Past Medical/Surgical History Planned Operation Planned Operative Procedure(s): EGD/CSCOPE Previous Hospitalizations/Surgeries HX Hospitalizations: No Any Problems With Anesthesia: Yes (PONV) You/Your Family Experience Fever (Hyperthermia) With Anes: No Cholinesterase deficiency: No Cardiovascular Hx of Irregular Heartbeat and/or Afib: No Hx Heart Attack: No Hx Congestive Heart Failure: No Hx Hypertension: Yes (CONTROLLED WITH MED) Hx Pacemaker: No Respiratory Hx Chronic Obstructive Pulmonary Disease (COPD): No Hx Asthma: No Hx Emphysema: No Hx Sleep Apnea: Yes CPAP: No BIPAP: Yes Hx Respiratory Tract Infection/Cold (presently): No Result (for STOP score): Positive Smoking Status: Never smoker Gastrointestinal Hx Ulcer: No Special diet followed at home: No Neurological Hx Seizures: No Hx Head/Neck Injury: No Hx Headaches: Yes Hx Back Injury/Pain: Yes Does patient have nerve stimulator: No Reproduction : No Miscellaneous Recent Exposure to Contagious Disease: No Allergies No Known Allergies Allergy (Verified 02/20/25 06:35) Discharge Is Pt Admitted From a Penitentiary, or a Skilled Nursing: No After D/C, Where Do you Plan to Go: Return Home Vital Signs Vital Signs Vital Signs: 02/20/25 06:37 02/20/25 06:37 Temperature 97.4 F L Temperature Source Temporal Pulse Rate 68 Respiratory Rate 14 Respiratory Pattern Normal Blood Pressure 136/81 H Blood Pressure Mean 99 Blood Pressure Source Monitor Blood Pressure Position Semi-Fowlers Blood Pressure Location Right Arm Pulse Ox 99 Oxygen Delivery Method Room Air Weight Weight: 209 lb 7.026 oz Body Mass Index (BMI) 35.9 Physical Exam Const alert, oriented x3 and no apparent distress HEENT normocephalic and head/scalp atraumatic Resp normal respiratory effort Cardio regular rate GI soft to palpation and non-tender; Negative for non-distended Palpation: Negative for guarding Extremity no clubbing, cyanosis or edema Skin no rashes or lesions noted Neuro CN's II-XII intact bilaterally Psych mental status grossly normal Assessment & Plan Assessment/Plan (1) Change in bowel habits: (2) GERD (gastroesophageal reflux disease): Surgery Risks - Colonoscopy I discussed with the patient the risks of the procedure: Yes Risks Include but are not Limited To: Risks include but are not limited to: Bleeding, perforation requiring further surgery, inability to complete colonoscopy requiring barium enema.
--- NOTE | 2025-02-20 07:24 | PRE.ANES_ITS ---
ASA Classification* ASA Classification ASA Classification: 2 Assessment & Plan Anesthesia* Anesthesia Assessment Anesthesia Assessment: Discussed sedation and/or anesthesia options, risks, benefits, and alternatives with patient/parents/legal guardian/POA. Questions invited. The patient/parents/legal guardian/POA seems to understand and agrees to proceed with anesthesia plan. Reviewed the physical assessment, medical history, allergy history and patient home medications list prior to surgery/procedure/anesthetic and documented any changes. Performed airway and anesthesia risk assessments. Anesthesia Type Anesthesia Type: MAC History Source History Obtained from:: Patient and Chart Anesthesia Focused Assessment* Temperature: 97.4 F Pulse Rate: 68 Blood Pressure: 136/81 Respiratory Rate: 14 Pulse Ox: 99 Oxygen Delivery Method: Room Air Airway Assessment Mouth opens: >3 cm Mallampati Score: I Teeth Condition: Missing (Patient has couple missing teeth. Everything else rest are tight.) Neck Range of motion (ROM): Limited ROM (Slight Decrease) Labs Anesthesia Preop lab: CBC WBC, (4.4-11.0) 7.3 K/mm3 06/29/24, 15:14 RBC, (4.2-5.4) 4.64 M/mm3 06/29/24, 15:14 Hgb, (12.0-15.0) 13.0 g/dL 06/29/24, 15:14 Hct, (37-47) 40.5 % 06/29/24, 15:14 Plt Count, (150-450) 321 K/mm3 06/29/24, 15:14 CHEMISTRY Potassium, (3.3-5.1) 4.1 mmol/L 12/02/24, 09:57 Sodium, (133-145) 140 mmol/L 12/02/24, 09:57 BUN, (4-19) 14 mg/dL 12/02/24, 09:57 Creatinine, (0.70-1.20) 0.67 mg/dL L 12/02/24, 09:57 Glucose, (70-99) 108 mg/dL H 12/02/24, 09:57 POC Glucose, (74-106) 113 mg/dL H Today, 06:35 TSH, (0.300-4.200) 1.780 uIU/mL 11/10/24, 11:09 COAG Pre-Assessment Diagnosis/Proposed Procedure Planned Operative Procedure(s): EGD/CSCOPE Anesthesia History 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 When Was Last Pacemaker Check QUESTION #4 FULL TEXT: You/Your Family Experience fever (hyperthermia) with Anesthesia Last Oral Intake Last Oral intake: Last Oral Intake NPO since 21:00 02/20/25 06:37 Meds taken in AM with sips of No 02/20/25 06:37 water? Meds patient instructed to take am of surgery PONV PONV - beam machine operator: PONV - beam machine operator Female Yes 02/16/25 10:15 HX of Motion Sickness Yes 02/16/25 10:15 HX of N/V After Surgery Yes 02/16/25 10:15 Non-Smoker Yes 02/16/25 10:15 Duration of Surgery greater No 02/16/25 10:15 than 60 minutes Number of Risk Factors 4 02/16/25 10:15 PONV Score Severe Risk 02/16/25 10:15 Height & Weight Height & Weight: Anesthesia: Height & Weight Height 5 ft 4 in 02/20/25 06:37 Weight: 95 kg 02/20/25 06:37 Body Mass Index (BMI) 35.9 02/20/25 06:37 Respiratory Assessment Respiratory Assessment - beam machine operator: Respiratory Tract Infection Hx - beam machine operator Hx Respiratory Tract Infection No 02/20/25 07:20 STOP Sleep Apnea STOP Sleep Apnea - beam machine operator: STOP Sleep Apnea - beam machine operator Hx Hypertension Yes: CONTROLLED WITH MED 02/20/25 07:20 Hx Sleep Apnea Yes 02/20/25 07:20 CPAP No 02/20/25 07:20 BIPAP Yes 02/20/25 07:20 Do you snore loudly (louder than talking or can be heard Do you often feel tired/ fatigued/ sleepy during daytime? Has anyone observed you stop breathing during sleep? STOP Results Positive 02/20/25 07:20 QUESTION #5 FULL TEXT : Do you snore loudly (louder than talking or can be heard through closed doors)? Tobacco Use History Tobacco Use History - beam machine operator: Tobacco Use History - beam machine operator Tobacco Use Smoking Status Never smoker 02/20/25 07:20 Hx Tobacco Use No 02/16/25 10:15 Years Smoking Packs Smoked per Day Smoking Cessation Date was within the last 15 years Hx Smoking Cessation Date Hx Smoking Cessation Counseling Hematologic Medial History Hematologic Hx - beam machine operator: Hematologic Medical Hx - manager rn Hx of Blood Transfusion No 02/16/25 10:15 Hx of Transfusion in last 3 No 02/16/25 10:15 Months Date of Last Transfusion (if within last 3 months) Ever experience any problems No 02/16/25 10:15 with transfusion(s)? Specify any problems Hx of Preganancy in last 3 No 02/16/25 10:15 Months Nurse Filling Out Transfusion DSCHRIBER 02/16/25 10:15 & Questions: Date: 02/16/25 02/16/25 10:15 Time: 10:17 02/16/25 10:15 Patient unable to answer at this time (ie. confused, unrespo /Reproduction History /Reproductive History - beam machine operator: /Reproductive Hx- beam machine operator Hx Now No 02/20/25 07:20 Gestational Age (in weeks): EDC: Hx Hx Para Hx Section SAB No 02/16/25 10:15 Does the father of the baby or his family experience fever w Father of the baby Malignant Hypertension history comment Active Medications Active Medications: Current Medications Generic Name Dose Route Start Last Admin Trade Name Freq PRN Reason Stop Dose Admin Lactated Ringer's 1,000 mls @ 15 mls/hr 02/20/25 06:30 02/20/25 06:47 IV 15 mls/hr .Q48H MAN Administration PFSH Medical History Wears glasses Post-menopausal Anxiety Diabetes Back pain Migraine headache Dietary restriction Gastric reflux Non-smoker BiPAP (biphasic positive airway pressure) dependence Shortness of breath on exertion Pain of left thumb Major depressive disorder Hypertension Home Medications Medication Instructions Recorded Last Taken Type multivitamin with iron (Daily 1 tab PO DAILY 09/14/19 Unknown History Vitamin with Iron tablet) blood sugar diagnostic #50 ea 11/16/19 Unknown Rx ergocalciferol (vitamin D2) 1,250 50,000 unit PO QWEEK #12 caps 12/09/24 Unknown Rx mcg (50,000 unit) capsule fluoxetine 20 mg capsule (Prozac) 20 mg PO DAILY #90 c aps 12/09/24 Unknown Rx hydrochlorothiazide 25 mg tablet 12.5 mg (1/2 x 25 mg) PO DAILY #45 12/09/24 Unknown Rx tabs iron-vitamin B complex with C 27 1 tab PO DAILY 02/16/25 History mg-300 mg tablet melatonin 10 mg capsule 10 mg PO HS PRN sleep Unknown History metformin 500 mg tablet,extended 500 mg PO BID #180 ta bs 12/09/24 Unknown Rx release 24 hr omeprazole magnesium 20 mg 20 mg PO DAILY #90 tabs 08/28 Unknown Rx tablet,delayed release (Prilosec OTC) potassium chloride 20 mEq 20 meq PO BID #180 tabs 08/28 Unknown Rx tablet,extended release rhubarb root extract 4 mg tablet 4 mg PO DAILY 5 Unknown History (Estroven Complete Menopause Relief) topiramate 100 mg tablet (Topamax) 100 mg PO BID #180 tabs 12/09/24 Unknown Rx semaglutide (weight loss) 0.25 0.25 mg subcut DILL 01/0502/10/25 History mg/0.5 mL subcutaneous pen injector trazodone 50 mg tablet 25 mg (1/2 x 50 mg) PO QHS P RN 01/30/25 Unknown Rx insomnia #30 tabs fluoxetine 40 mg capsule 40 mg PO DAILY 02/16/25 Unkn own History Allergy/AdvReac Type Severity Reaction Status Date / Time No Known Allergies Allergy Verified 02/20/25 06:35 Family History Father Hypertension Diabetes Mother Hypertension Diabetes Myocardial infarction Lupus (systemic lupus erythematosus) Sister Diabetes Surgical History History of tonsillectomy History of hysterectomy History of cholecystectomy Social History Smoking Status: Never smoker second hand exposure: No alcohol intake: never substance use type: does not use Review of Systems (Anesthesia) ROS Narrative System reviewed and no additional complaints, except as documented.
--- NOTE | 2025-02-20 07:30 | COLBX_PTH ---
PATIENT: LINNEA FLYNN LOC: EN U#:[id number] AGE/SX: 59/F ROOM: RE02/20/[address]: Dr. Karen Carrera MD : 1965 BED: DIS: 02/20/2025 SPEC #: [id number] RECD: 02/20/25 11:57 STATUS: PIPPA REQ #: [id number] ANNETTA: 02/20/25 07:[address]: Karen Carrera DEPT: SURGICAL PATHOLOGY RECD BY: Joseph Mueller ENTERED: 02/20/25 14:20 SP TYPE: COLON BX OTHR DR: Dr. Jess White MD Tissues: A - Gastric mucous membrane B - Esophagus, NOS Procedures: Immunohistochemical Stains Surgery Specimen Level IV HEADER OPERATION: Colonoscopy, EGD with biopsy PRE-OP DIAGNOSIS: Change in bowel habit, GERD TISSUE SUBMITTED: A- Antrum biopsy, B- GE junction biopsy MICROSCOPIC DIAGNOSIS A. Stomach, antrum, biopsy: * Antral mucosa with mild chronic focal active inflammation * No morphologic evidence of Helicobacter pylori organisms on H&E or immunostained secttions B. GE junction, biopsy: * Benign squamous epithelium * Oxyntocardiac type mucosa with mild chronic focal active inflammation, negative for goblet cells MICROSCOPIC DESCRIPTION Slides are reviewed. All matched controls reacted appropriately. These tests were developed and their performance characteristics determined by [facility]. They may not have been cleared or approved by the U.S. Food and Drug Administration. The FDA has determined that such clearance or approval is not necessary. The above immunohistochemical markers are viewed by the Pathologist. GROSS DESCRIPTION A. Received in fixative is one container labeled with the patient's name and designated "Antrum biopsy." The specimen consists of one irregular fragment of rod tissue that measures 0.6 cm. The specimen is totally submitted in one cassette. B. Received in fixative is one container labeled with the patient's name and designated "GE junction biopsy." The specimen consists of one irregular fragment of rod tissue that measures 0.7 cm. The specimen is totally submitted in one cassette. MN 02/20/2025 CPT:30721n2,90218
--- NOTE | 2025-02-20 08:34 | PCM.POST.ANE ---
Anesthesia: Postop Eval I Current Vital Signs Temperature: 97.6 F Pulse Rate: 67 Blood Pressure: 92/54 Respiratory Rate: 16 Pulse Ox: 96 Oxygen Delivery Method: Room Air Assessment Airway patent: Yes Spontaneous unlabored respirations: Yes Mental status: Awake and Calm nausea: No Vomiting: No Anesthesia Complication: No Fluid Hydration Crystalloid volume administer (ml): 600 Total IV fluid infused: 600 Progress Note Anesthesia document: Postop Eval 1 completed: Yes
--- NOTE | 2025-02-20 08:35 | OP.EGD_ITS ---
Patient Name: Shauna Jimenez Procedure Date: 02/20/2025 7:51 AM Date of : 1965 Age: 59 Procedure: Upper GI endoscopy Indications: Heartburn Providers: Karen Carrera MD Referring MD: Jess White MD Medicines: Monitored Anesthesia Care Patient Profile: This is a 59 year old female. Complications: No immediate complications. Procedure: Pre-Anesthesia Assessment: - Prior to the procedure, a History and Physical was performed, and patient medications and allergies were reviewed. The patient's tolerance of previous anesthesia was also reviewed. The risks and benefits of the procedure and the sedation options and risks were discussed with the patient. All questions were answered, and informed consent was obtained. Prior Anticoagulants: The patient has taken no anticoagulant or antiplatelet agents. ASA Grade Assessment: Per anesthesia. After reviewing the risks and benefits, the patient was deemed in satisfactory condition to undergo the procedure. After obtaining informed consent, the endoscope was passed under direct vision. Throughout the procedure, the patient's blood pressure, pulse, and oxygen saturations were monitored continuously. The Colonoscope was introduced through the mouth, and advanced to the second part of duodenum. The upper GI endoscopy was accomplished without difficulty. The patient tolerated the procedure well. Scope In: 8:04:34 AM Scope Out: 8:10:15 AM Total Procedure Duration Time 0 hours 5 minutes 41 seconds Findings: The Z-line was irregular and was found 35 cm from the incisors. Biopsies were taken with a cold forceps for histology. No gross lesions were noted in the entire esophagus. Mildly erythematous mucosa without bleeding was found in the gastric antrum. Biopsies were taken with a cold forceps for histology. Biopsies were taken with a cold forceps for Helicobacter pylori cultures. The examined duodenum was normal. Multiple less than 5 mm sessile polyps with no bleeding and no stigmata of recent bleeding were found in the gastric body. The cardia and gastric fundus were normal on retroflexion. Impression: - Z-line irregular, 35 cm from the incisors. Biopsied. - No gross lesions in the entire esophagus. - Erythematous mucosa in the antrum. Biopsied. - Normal examined duodenum. - Multiple gastric polyps. Recommendation: - Await pathology results. - Discharge patient to home. - Resume previous diet. - Continue present medications. Procedure Code(s): --- Professional --- 32850, PT, Esophagogastroduodenoscopy, flexible, transoral; with biopsy, single or multiple Diagnosis Code(s): --- Professional --- K22.89, Other specified disease of esophagus K31.89, Other diseases of stomach and duodenum K31.7, Polyp of stomach and duodenum R12, Heartburn CPT copyright 2021 [employer]. All rights reserved. The codes documented in this report are preliminary and upon health science instructor review may be revised to meet current compliance requirements. MD Karen Jimenez MD 02/20/2025 8:34:44 AM This report has been signed electronically. Number of Addenda: 0 Note Initiated On: 02/20/2025 7:51 AM
--- NOTE | 2025-02-20 08:35 | OP.PROVAT_ITS ---
02/20/2025 Jess White MD [address] [place] [address] [place] [address] Re : Upper GI endoscopy procedure for Shauna Jimenez Dear Dr. White This procedure was performed on Thursday, February 20, 2025. My impressions and recommendations are as follows: Impressions : - Z-line irregular, 35 cm from the incisors. Biopsied. - No gross lesions in the entire esophagus. - Erythematous mucosa in the antrum. Biopsied. - Normal examined duodenum. - Multiple gastric polyps. Recommendations : - Await pathology results. - Discharge patient to home. - Resume previous diet. - Continue present medications. My findings are described in the full procedure note, which is enclosed. If I can be of further assistance, please feel free to contact me at Doctor phone number(s): , Work: . Sincerely, MD Karen Jimenez MD 02/20/2025 8:34:44 AM This report has been signed electronically.
--- NOTE | 2025-02-20 08:37 | OP.COLON_ITS ---
Patient Name: Shauna Jimenez Procedure Date: 02/20/2025 8:10 AM Date of : 1965 Age: 59 Procedure: Colonoscopy Indications: Change in bowel habits Providers: Karen Carrera MD Referring MD: Jess White MD Medicines: Monitored Anesthesia Care Patient Profile: This is a 59 year old female. Last Colonoscopy: none. The patient's first colonoscopy is today. Complications: No immediate complications. Procedure: Pre-Anesthesia Assessment: - Prior to the procedure, a History and Physical was performed, and patient medications and allergies were reviewed. The patient's tolerance of previous anesthesia was also reviewed. The risks and benefits of the procedure and the sedation options and risks were discussed with the patient. All questions were answered, and informed consent was obtained. Prior Anticoagulants: The patient has taken no anticoagulant or antiplatelet agents. ASA Grade Assessment: Per anesthesia. After reviewing the risks and benefits, the patient was deemed in satisfactory condition to undergo the procedure. After I obtained informed consent, the scope was passed under direct vision. Throughout the procedure, the patient's blood pressure, pulse, and oxygen saturations were monitored continuously. The Colonoscope was introduced through the anus and advanced to the cecum, identified by the appendiceal orifice, ileocecal valve and palpation. The colonoscopy was performed without difficulty. The patient tolerated the procedure well. The quality of the bowel preparation was good. Scope In: 8:10:34 AM Scope Withdrawal Time 0 hours 8 minutes 5 seconds Scope Out: 8:24:31 AM Total Procedure Duration Time 0 hours 13 minutes 57 seconds Findings: The perianal and digital rectal examinations were normal. The entire examined colon appeared normal on direct and retroflexion views. Impression: - The entire examined colon is normal on direct and retroflexion views. - No specimens collected. Recommendation: - Discharge patient to home. - Resume previous diet. - Continue present medications. - Repeat colonoscopy in 10 years for screening purposes. Procedure Code(s): --- Professional --- 65869, PT, Colonoscopy, flexible; diagnostic, including collection of specimen(s) by brushing or washing, when performed (separate procedure) Diagnosis Code(s): --- Professional --- R19.4, Change in bowel habit CPT copyright 2021 [employer]. All rights reserved. The codes documented in this report are preliminary and upon crystalizer review may be revised to meet current compliance requirements. MD Karen Jimenez MD 02/20/2025 8:37:02 AM This report has been signed electronically. Number of Addenda: 0 Note Initiated On: 02/20/2025 8:10 AM
--- NOTE | 2025-02-20 08:38 | OP.PROVAT_ITS ---
02/20/2025 Jess White MD [address] [place] [address] [place] [address] Re : Colonoscopy procedure for Shauna Benedictjoselo Dear Dr. White This procedure was performed on Thursday, February 20, 2025. My impressions and recommendations are as follows: Impressions : - The entire examined colon is normal on direct and retroflexion views. - No specimens collected. Recommendations : - Discharge patient to home. - Resume previous diet. - Continue present medications. - Repeat colonoscopy in 10 years for screening purposes. My findings are described in the full procedure note, which is enclosed. If I can be of further assistance, please feel free to contact me at Doctor phone number(s): , Work: . Sincerely, MD Karen Jimenez MD 02/20/2025 8:37:02 AM This report has been signed electronically.
--- NOTE | 2025-02-20 13:50 | PCM.POSTANE2 ---
Anesthesia Postop Eval I Sum Postop Eval Completion status Anesthesia document: Postop Eval 1 completed: Yes Anesthesia Postop Eval I Summary Anesthesia Postop Eval I Summary: Anesthesia Postop Eval I: Assessment Summary Airway patent Yes 02/20/25 08:34 [email or web address] Spontaneous unlabored Yes 02/20/25 08:34 [email or web address] respirations Mental status Awake,Calm 02/20/25 08:34 [email or web address] nausea No 02/20/25 08:34 [email or web address] Vomiting No 02/20/25 08:34 [email or web address] Anesthesia Postop Eval I: Fluid Summary Crystalloid volume administer 600 02/20/25 08:34 [email or web address] (ml) Colloids volume administered ( ml) Blood Product volume administered (ml) Total IV fluid infused 600 02/20/25 08:34 [email or web address] Anesthesia Postop Eval I: Summary Notes Anesthesia Complication No 02/20/25 08:34 [email or web address] Anesthesia Complication Comment: Post-operative progress note Anesthesia: Postop Eval II Evaluation Mental status: Awake Pain Level: 0 nausea: No Vomiting: No Complications Anesthesia Complication: No
== END 2025-02-20 09:28 | disposition home or self-care (01) ==
LOC: EN 06:12 → AC 06:16
PROVIDERS: PCP Internal Medicine; Referring Provider Internal Medicine; Visit Provider Surgery
DX: K29.50 Unspecified chronic gastritis without bleeding (principal); E11.9 Type 2 diabetes mellitus without complications; K21.9 Gastro-esophageal reflux disease without esophagitis; I10 Essential (primary) hypertension; Z79.899 Other long term (current) drug therapy; K31.7 Polyp of stomach and duodenum; R19.4 Change in bowel habit; Z79.85 Long-term (current) use of injectable non-insulin antidiabetic drugs
CPT/HCPCS: 43239; 45378; 82962; 88305; 88342; J2405